=== PATIENT | female | born 1945 | race Caucasian/White ===

== ENCOUNTER → 2016-12-02 | Outpatient (CLI) | payer OTHER ==
[~2016-12-02] MED LIST: ADVIN50/60 INH; ALBINS/ INH; AMLO-114 PO; APR/25 PO; ASPI81TA28 PO; FRS/40 PO; GLC500 PO; HYDR-5688 PO; INSDGI INJ; LEVO88TA3 PO; METO-596 PO; METO100T14 PO; NRV5 PO; PRVHFAIN INH; SPIR25TA PO; SPR25 PO; SPRIN/30 INH; SYN88 PO; TIOTCAP INH; ZOLP5TAB6 PO
[2016-12-02 12:32] LABS: HEMATOCRIT 33.6 % (37-47); MEAN CELL VOLUME 92.6 fL (80-100); MEAN CORPUSCULAR HGB CONC 32.4 g/dl (32-36); PLATELET COUNT 323 K/uL (130-400); RED BLOOD COUNT 3.63 M/uL (4.2-5.4); WHITE BLOOD COUNT 6.75 K/uL (4.8-10.8)
== END | disposition home or self-care (01) ==
LOC: C.LABBFT 08:22
PROVIDERS: ATTEND Internal Medicine
DX: K92.1 Melena (principal)

== ENCOUNTER → 2016-12-03 | Outpatient (CLI) | payer OTHER | END | disposition home or self-care (01) | LOC: C.LABSPEC 14:00 | PROVIDERS: ATTEND Internal Medicine | DX: R19.7 Diarrhea, unspecified (principal) ==

== ENCOUNTER → 2016-12-19 | Day surgery (SDC) | payer OTHER ==
[2016-12-11 13:40] VITALS: Ht 149.9 cm; Wt 90.0 kg
[~2016-12-19] VITALS: Ht 149.9 cm; Wt 90.0 kg
[~2016-12-19] MED LIST changes: +CIPROFLOXACIN / D5W 200 MG in PREMIXED IN D5W 100 ML IV SCH; -GLC500 PO; +LIDOCAINE HCL 2% 2 ML VIAL (20MG/ML) ONE; -METO-596 PO; +MIDAZOLAM HCL 1 MG/ML 2ML VIAL ONE; -NRV5 PO; +ONDANSETRON INJ 2 MG/ML 2 ML VIAL IV PRN; +ONDANSETRON INJ 2 MG/ML 2 ML VIAL ONE; +PROPOFOL IV EMULSION 10 MG/ML 20 ML VIAL IV ONE; -PRVHFAIN INH; -SPR25 PO; -SYN88 PO; -TIOTCAP INH
[2016-12-19 09:27] VITALS: TEMP 36.6
--- NOTE | 2016-12-19 10:12 | Endo History and Physical ---
History & Physical Date of Service: Dec 19, 2016. Chief Complaint: Diarrhea Referring Physician: Dr Frausto History of Present Illness Patient with a history of diarrhea and occasional hematochezia for colonosocpy today Past Medical History Diabetes, Arthritis, High Cholesterol, Sleep Apnea, CHF, Hypertension, COPD, Thyroid Disease Past Surgical History Hx Cardiac Surgery: No Hx Internal Defibrillator: No Hx Pacemaker: No Hx Abdominal Surgery: Yes (CARISA, APPY) Hx of Implantable Prosthesis: No Hx Post-Op Nausea and Vomiting: No Hx Cancer Surgery: No Hx Thoracic Surgery: No Hx Orthopedic: Yes (LEFT RCR) Hx Urinary Tract Surgery: No Family History None Social History Smoking Status: Former Smoker Hx Substance Use: No Hx Alcohol Use: Yes (RARELY) Allergies Coded Allergies: Doxycycline (Verified Allergy, Unknown, UNKN, 12/19/16) LUCIANA Inhibitors (Verified Adverse Reaction, Intermediate, COUGH, 12/19/16) Statins (Verified Adverse Reaction, Intermediate, MYALGIA, 12/19/16) Current Medications Reported Home Medications Medications Dose Route/Sig Max Daily Dose Days Date Category Dose Instructions Proventil 0.083% 2.5MG/3ML (Albuterol Sulf) 2.5 Mg/3 Ml Nebu 2.5 Mg INH QID PRN 12/11/16 Reported Spiriva Handihaler (Tiotropium [place]) 30 Puff/540 Mcg Aerp 1 Cap INH QAM 12/11/16 Reported Advair Diskus 500/50 60 Dose (Fluticasone Prop/Salmeterol) 1 Ea Aerp 1 Puff INH BID 12/11/16 Reported Zolpidem Tartrate 5 Mg Tab 1 Tab PO HS 30 12/11/16 Reported Lopressor (Metoprolol Tartrate) 100 Mg Tab 100 Mg PO BID 12/11/16 Reported Levothyroxine Sodium 88 Mcg Tab 1 Tab PO QAM 90 12/11/16 Reported Aldactone (Spironolactone) 25 Mg Tab 25 Mg PO QAM 12/11/16 Reported Norvasc (Amlodipine Besylate) 10 Mg Tab 10 Mg PO QAM 12/11/16 Reported Lasix (Furosemide) 40 Mg Tab 40 Mg PO QAM 12/11/16 Reported CAN TAKE AN ADDITIONAL DOSE PRN SWELLING Hydralazine HCl 25 Mg Tab 1 Tab PO TID 12/11/16 Reported Aspirin Ec (Aspirin) 81 Mg Tab 81 Mg PO QAM 10/14/15 Reported Vital Signs Weight (Kilograms): 90 Height (Feet): 4 Height (Inches): 11 Date Time Temp Pulse Resp B/P Pulse Ox O2 Delivery O2 Flow Rate FiO2 12/19/16 09:27 36.6 57 16 164/69 92 Room Air Physical Exam General Appearance: no apparent distress Respiratory/Chest: Auscultation: breath sounds normal Cardiovascular: Heart Auscultation: RRR Abdomen: Inspection & Palpation: soft Assessment and Plan Colonoscopy for evaluation of diiarrhea -- risks discussed to include bleeding, infection, perforation, pain, and missed polyps.
[2016-12-19 12:14] VITALS: BP 163/70; PULSE 71; O2SAT 94
--- NOTE | 2016-12-19 12:21 | Discharge Instructions ---
Endoscopy Patient Instructions Date / Procedure(s) Performed Dec 19, 2016. Colonoscopy Allergy Information Coded Allergies: Doxycycline (Verified Allergy, Unknown, UNKN, 12/19/16) LUCIANA Inhibitors (Verified Adverse Reaction, Intermediate, COUGH, 12/19/16) Statins (Verified Adverse Reaction, Intermediate, MYALGIA, 12/19/16) Discharge Date / Findings Dec 19, 2016. Internal hemorrhoids Multiple colon polyps, 1 large polyp in the rectum Medication Instructions Reported Home Medications Medications Dose Route/Sig Max Daily Dose Days Date Category Dose Instructions Proventil 0.083% 2.5MG/3ML (Albuterol Sulf) 2.5 Mg/3 Ml Nebu 2.5 Mg INH QID PRN 12/11/16 Reported Spiriva Handihaler (Tiotropium [place]) 30 Puff/540 Mcg Aerp 1 Cap INH QAM 12/11/16 Reported Advair Diskus 500/50 60 Dose (Fluticasone Prop/Salmeterol) 1 Ea Aerp 1 Puff INH BID 12/11/16 Reported Zolpidem Tartrate 5 Mg Tab 1 Tab PO HS 30 12/11/16 Reported Lopressor (Metoprolol Tartrate) 100 Mg Tab 100 Mg PO BID 12/11/16 Reported Levothyroxine Sodium 88 Mcg Tab 1 Tab PO QAM 90 12/11/16 Reported Aldactone (Spironolactone) 25 Mg Tab 25 Mg PO QAM 12/11/16 Reported Norvasc (Amlodipine Besylate) 10 Mg Tab 10 Mg PO QAM 12/11/16 Reported Lasix (Furosemide) 40 Mg Tab 40 Mg PO QAM 12/11/16 Reported CAN TAKE AN ADDITIONAL DOSE PRN SWELLING Hydralazine HCl 25 Mg Tab 1 Tab PO TID 12/11/16 Reported Aspirin Ec (Aspirin) 81 Mg Tab 81 Mg PO QAM 10/14/15 Reported Provider Instructions Activity Restrictions - No exercising or heavy lifting for 24 hours. - Do not drink alcohol the day of the procedure. - Do not drive a car or operate machinery until the day after the procedure. - Do not make any important decisions or sign important papers in 24 hours after the procedure. Following Day: - Return to full activity which may include returning to work/school. Diet Start your diet with liquids and light foods (jello, soup, juice, toast). Then eat your usual diet if not nauseated. Treatment For Common After Affects For mild abdominal pain, bloating, or excessive gas: - Rest - Eat lightly - Lie on right side Follow-Up Information No aspirin, motrin, Ibuprofen for 1 week Await pathology results Ciprofloxacin 500 mg twice daily for 5 days Anesthesia Information What You Should Know You have had a procedure that required some medicine to reduce anxiety and discomfort. This treatment is called moderate sedation. After receiving the treatment, you may be sleepy, but you will be able to breathe on your own. The effects of the treatment may last for several hours. Follow these instructions along with Activity/Diet recommendations noted above: * Do NOT do anything where dizziness or clumsiness would be dangerous. * Rest quietly at home today, then you can be up and about tomorrow. * Have a responsible person stay with you the rest of today. * You may have had an I.V. today. If so, you may take the dressing off later today. Recommendations Call your doctor if: * Trouble breathing * Continuous vomiting for more than 24 hours * Temperature above 101 degrees * Severe abdominal pain or bloating * Pain not relieved by pain medicine ordered * There is increased drainage or redness from any incision * A large amount of rectal bleeding greater than 2-3 tablespoons. (If you had a polyp/s removed or have hemorrhoids, a small amount of blood - from the rectum is to be expected.) * You have any unanswered questions or concerns. IN THE EVENT OF A SERIOUS EMERGENCY, GO TO THE NEAREST EMERGENCY ROOM Your discharge instructions were prepared by provider Taylor Huff. Patient Instructions Signature Page Miya Mcgarry Patient (or Guardian) Signature/Date: I have read and understand the instructions given to me by my caregivers. Caregiver/RN/Doctor Signature/Date: The above-named patient and/or guardian has received patient instructions on this date. + Original Patient Signature Page (only) stays with chart. Please make copy for patient.
--- NOTE | 2016-12-19 12:23 | Anesthesiology Progress Note ---
Anesthesia Post Op Note Date & Time Dec 19, 2016 at 12:22 Vital Signs Pain Intensity: 0 Vital Signs Past 12 Hours Date Time Temp Pulse Resp B/P Pulse Ox O2 Delivery O2 Flow Rate FiO2 12/19/16 12:14 71 18 163/70 94 Room Air 12/19/16 12:05 67 18 176/77 93 Room Air 12/19/16 11:35 71 18 173/73 94 Room Air 12/19/16 11:25 68 18 175/73 100 Mask 5 12/19/16 11:15 67 20 175/95 99 Mask 5 12/19/16 09:27 36.6 57 16 164/69 92 Room Air Notes Mental Status: alert / awake / arousable Nausea / Vomiting: adequately controlled Pain: adequately controlled Airway Patency, RR, SpO2: stable & adequate BP & HR: stable & adequate Hydration State: stable & adequate Anesthetic Complications: no major complications apparent
--- NOTE | 2016-12-20 00:45 | GI REPORT ---
Procedure Date: 12/19/2016 9:53 AM Procedure: Colonoscopy Indications: Chronic diarrhea Medicines: Monitored Anesthesia Care Complications: No immediate complications. Estimated blood loss: Minimal. Estimated Blood Loss: Estimated blood loss was minimal. Procedure: Pre-Anesthesia Assessment: - Prior to the procedure, a History and Physical was performed, and patient medications, allergies and sensitivities were reviewed. The patient's tolerance of previous anesthesia was reviewed. - The risks and benefits of the procedure and the sedation options and risks were discussed with the patient. All questions were answered and informed consent was obtained. - Patient identification and proposed procedure were verified prior to the procedure by the physician, the nurse and the physician industrial. The procedure was verified in the procedure room. - Pre-procedure physical examination revealed no contraindications to sedation. - ASA Grade Assessment: IV - A patient with severe systemic disease that is a constant threat to life. - After reviewing the risks and benefits, the patient was deemed in satisfactory condition to undergo the procedure. - The anesthesia plan was to use monitored anesthesia care (MAC). - Immediately prior to administration of medications, the patient was re-assessed for adequacy to receive sedatives. - The heart rate, respiratory rate, oxygen saturations, blood pressure, adequacy of pulmonary ventilation, and response to care were monitored throughout the procedure. - The physical status of the patient was re-assessed after the procedure. After I obtained informed consent, the scope was passed under direct vision. Throughout the procedure, the patient's blood pressure, pulse, and oxygen saturations were monitored continuously. The Scope was introduced through the anus and advanced to the cecum, identified by appendiceal orifice and ileocecal valve. The colonoscopy was performed with moderate difficulty. The patient tolerated the procedure well. The quality of the bowel preparation was good. Findings: The perianal and digital rectal examinations were normal. Pertinent negatives include normal sphincter tone. The terminal ileum appeared normal. A 6 mm polyp was found in the cecum. The polyp was semi-sessile. The polyp was removed with a hot snare. Resection and retrieval were complete. Estimated blood loss was minimal. Three sessile polyps were found in the ascending colon. The polyps were 4 to 6 mm in size. These polyps were removed with a hot snare. Resection and retrieval were complete. Estimated blood loss was minimal. A 10 mm polyp was found in the descending colon. The polyp was sessile. The polyp was removed with a hot snare. Resection and retrieval were complete. To prevent bleeding after the polypectomy, one hemostatic clip was successful and one hemostatic clip was unsuccessfully placed (MR conditional). There was no bleeding at the end of the procedure. Two sessile polyps were found in the descending colon. The polyps were 6 to 7 mm in size. These polyps were removed with a cold snare. Resection and retrieval were complete. Estimated blood loss was minimal. A 5 mm polyp was found in the sigmoid colon. The polyp was sessile. The polyp was removed with a cold snare. Resection and retrieval were complete. Estimated blood loss was minimal. A 40 mm polyp was found in the rectum. The polyp was semi-pedunculated. The polyp was removed with a hot snare. Resection and retrieval were complete using a Gao net. Five hemostatic clips were successfully placed (MR conditional). Estimated blood loss was minimal. Area was successfully injected with 4 mL of a 1:10,000 solution of epinephrine for hemostasis. Estimated blood loss was minimal. Internal hemorrhoids were found during retroflexion. The hemorrhoids were mild. The exam was otherwise without abnormality. Impression: - The examined portion of the ileum was normal. - One 6 mm polyp in the cecum, removed with a hot snare. Resected and retrieved. - Three 4 to 6 mm polyps in the ascending colon, removed with a hot snare. Resected and retrieved. - One 10 mm polyp in the descending colon, removed with a hot snare. Resected and retrieved. Clip (MR conditional) was placed. - Two 6 to 7 mm polyps in the descending colon, removed with a cold snare. Resected and retrieved. - One 5 mm polyp in the sigmoid colon, removed with a cold snare. Resected and retrieved. - One 40 mm polyp in the rectum, removed with a hot snare. Resected and retrieved. Clips (MR conditional) were placed. Injected. - Internal hemorrhoids. - The examination was otherwise normal. Recommendation: - Discharge patient to home (ambulatory). - Advance diet as tolerated today. - Cipro (ciprofloxacin) 500 mg PO BID for 5 days. - Await pathology results. - No ibuprofen, naproxen, or other non-steroidal anti-inflammatory drugs for 1 week after polyp removal. Taylor Huff D.O. Taylor Huff, 12/19/2016 12:16:57 PM This report has been signed electronically. Note Initiated On: 12/19/2016 9:53 AM I attest to the content of the Intraoperative Record and orders documented therein, exceptions below
== END | disposition home or self-care (01) ==
LOC: C.GI 09:00
PROVIDERS: ATTEND Internal Medicine Gastroenterology
DX: R19.7 Diarrhea, unspecified (principal); D12.2 Benign neoplasm of ascending colon; D12.4 Benign neoplasm of descending colon; D12.5 Benign neoplasm of sigmoid colon; K64.8 Other hemorrhoids

== ENCOUNTER → 2017-01-27 | Outpatient (CLI) | payer OTHER ==
[~2017-01-27] MED LIST changes: -APR/25 PO; -CIPROFLOXACIN / D5W 200 MG in PREMIXED IN D5W 100 ML IV SCH; +HYDR-4716 PO; -LIDOCAINE HCL 2% 2 ML VIAL (20MG/ML) ONE; -MIDAZOLAM HCL 1 MG/ML 2ML VIAL ONE; -ONDANSETRON INJ 2 MG/ML 2 ML VIAL IV PRN; -ONDANSETRON INJ 2 MG/ML 2 ML VIAL ONE; +PRED1SUS3 OPL; -PROPOFOL IV EMULSION 10 MG/ML 20 ML VIAL IV ONE
[2017-01-27 17:32] LABS: BASO % 0.5 %; BASO ABS # 0.04 K/uL (0-0.2); COMPLETE YES; EOS % 4.9 %; IG% 0.4 %; LYMPH % 17.5 %; LYMPH ABS # 1.43 K/uL (1.2-3.4); MEAN CELL VOLUME 91.6 fL (80-100); MEAN CORPUSCULAR HEMOGLOBIN 29.6 pg (25-34); MEAN CORPUSCULAR HGB CONC 32.4 g/dl (32-36); MEAN PLATELET VOLUME 10.1 fL (7.4-10.4); MONO % 10.1 %; NEUT % 66.6 %; PLATELET COUNT 346 K/uL (130-400); RED BLOOD COUNT 4.15 M/uL (4.2-5.4); WHITE BLOOD COUNT 8.18 K/uL (4.8-10.8)
[2017-01-27 18:15] LABS: ALT/SGPT 15 U/L (12-78); AST/SGOT 11 U/L (15-37); BLOOD UREA NITROGEN 25 mg/dl (7-18); BUN/CREATININE RATIO 19.5 (10-20); CARBON DIOXIDE 29 mmol/L (21-32); CHLORIDE 109 mmol/L (98-107); GLUCOSE 125 mg/dl (70-99); POTASSIUM 5.4 mmol/L (3.5-5.1); SODIUM 143 mmol/L (136-145)
[2017-01-27 18:24] LABS: RATIO 602.5 mcg/mg (0-30.0)
[2017-01-27 18:25] LABS: ALKALINE PHOSPHATASE 84 U/L (45-117); CHOLESTEROL 281 mg/dl (0-200); CHOLESTEROL/HDL RATIO 6.1; HDL CHOLESTEROL 46 mg/dl; LDL CHOLESTEROL CALCULATED 188 mg/dl; TRIGLYCERIDES 234 mg/dl (0-150); VERY LOW DENSITY LIPOPROT CALC 47 mg/dl
[2017-01-28 06:36] LABS: ESTIMATED AVERAGE GLUCOSE 146 mg/dl; HA1C FLAG Normal (Normal)
== END | disposition home or self-care (01) ==
LOC: C.LABBFT 13:54
PROVIDERS: ATTEND Internal Medicine
DX: E11.21 Type 2 diabetes mellitus with diabetic nephropathy (principal)

== ENCOUNTER → 2017-04-08 | Day surgery (SDC) | payer OTHER ==
[2017-04-01 15:15] VITALS: Ht 162.6 cm; Wt 90.5 kg
[~2017-04-08] VITALS: Ht 162.6 cm; Wt 90.5 kg
[~2017-04-08] MED LIST changes: +ATROPINE SULFATE 0.1 MG/ML 5ML SYR IV PRN; +EpHEDrine SULFATE INJ 50 MG/ML AMP IV PRN; +HydrALAZINE HCL 20 MG/ML VIAL IV. STA; +HydrALAZINE HCL 20 MG/ML VIAL ONE; +LEVO-366 PO; +ONDANSETRON INJ 2 MG/ML 2 ML VIAL IV PRN; +PROPOFOL IV EMULSION 10 MG/ML 20 ML VIAL IV ONE
--- NOTE | 2017-04-08 09:51 | Endo History and Physical ---
History & Physical Date of Service: Apr 08, 2017. Chief Complaint: Hx polyps, 3 mos follow up Referring Physician: Shubham Frausto History of Present Illness Patient with a history of numerous colon polyps, one 40 mm polyp near the rectum removed with endoscopic therapy. For a surveillance examination today. Past Medical History Diabetes, Arthritis, High Cholesterol, Sleep Apnea, CHF, Hypertension, COPD, Thyroid Disease Past Surgical History Hx Cardiac Surgery: No Hx Internal Defibrillator: No Hx Pacemaker: No Hx Abdominal Surgery: Yes (CARISA, APPENDECTOMY) Hx of Implantable Prosthesis: No Hx Post-Op Nausea and Vomiting: No Hx Cancer Surgery: No Hx Thoracic Surgery: No Hx Orthopedic: Yes (LEFT RCR) Hx Urinary Tract Surgery: Yes (COLONSCOPY) Family History None Social History Smoking Status: Former Smoker Hx Substance Use: No Hx Alcohol Use: Yes (RARELY) Allergies Coded Allergies: Doxycycline (Verified Allergy, Unknown, UNKN, 04/01/17) LUCIANA Inhibitors (Verified Adverse Reaction, Intermediate, COUGH, 04/01/17) Statins (Verified Adverse Reaction, Intermediate, MYALGIA, 04/01/17) Current Medications Reported Home Medications Medications Dose Route/Sig Max Daily Dose Days Date Category Dose Instructions [place] 5MG/325MG (Acetaminophen/Hydrocodone Bitart) Tab 1 Tablet PO Q8H PRN 04/01/17 Reported PRN PAIN Lantus (Insulin Glargine) 100 Unit/Ml Inj 20 Units INJ QAM 04/01/17 Reported Proventil 0.083% 2.5MG/3ML (Albuterol Sulf) 2.5 Mg/3 Ml Nebu 2.5 Mg INH QID PRN 12/11/16 Reported Spiriva Handihaler (Tiotropium [place]) 30 Puff/540 Mcg Aerp 1 Cap INH QAM 12/11/16 Reported Advair Diskus 500/50 60 Dose (Fluticasone Prop/Salmeterol) 1 Ea Aerp 1 Puff INH BID 12/11/16 Reported Zolpidem Tartrate 5 Mg Tab 1 Tab PO HS 30 12/11/16 Reported Lopressor (Metoprolol Tartrate) 100 Mg Tab 100 Mg PO BID 12/11/16 Reported Levothyroxine Sodium 88 Mcg Tab 1 Tab PO QAM 90 12/11/16 Reported Aldactone (Spironolactone) 25 Mg Tab 25 Mg PO QAM 12/11/16 Reported Norvasc (Amlodipine Besylate) 10 Mg Tab 10 Mg PO QAM 12/11/16 Reported Lasix (Furosemide) 40 Mg Tab 40 Mg PO QAM 12/11/16 Reported CAN TAKE AN ADDITIONAL DOSE PRN SWELLING Hydralazine HCl 25 Mg Tab 1 Tab PO TID 12/11/16 Reported Aspirin Ec (Aspirin) 81 Mg Tab 81 Mg PO QAM 10/14/15 Reported Vital Signs Weight (Kilograms): 90.45 Height (Feet): 5 Height (Inches): 4 Date Time Temp Pulse Resp B/P (MAP) Pulse Ox O2 Delivery O2 Flow Rate FiO2 04/08/17 09:35 36.6 74 24 231/88 (135) 95 Room Air Physical Exam General Appearance: no apparent distress Respiratory/Chest: Auscultation: breath sounds normal Cardiovascular: Heart Auscultation: RRR Abdomen: Inspection & Palpation: soft Assessment and Plan Evaluation for colon polyp resection, risks discussed to include bleeding, infection, perforation, pain, and bleeding.
--- NOTE | 2017-04-08 10:18 | GI REPORT ---
Procedure Date: 04/08/2017 9:25 AM Procedure: Colonoscopy Indications: Surveillance: Piecemeal removal of large sessile adenoma last colonoscopy (< 3 yrs) Medicines: Monitored Anesthesia Care Complications: No immediate complications. Estimated blood loss: Minimal. Estimated Blood Loss: Estimated blood loss was minimal. Procedure: Pre-Anesthesia Assessment: - Prior to the procedure, a History and Physical was performed, and patient medications, allergies and sensitivities were reviewed. The patient's tolerance of previous anesthesia was reviewed. - The risks and benefits of the procedure and the sedation options and risks were discussed with the patient. All questions were answered and informed consent was obtained. - Patient identification and proposed procedure were verified prior to the procedure by the physician, the nurse and the thermit welding machine operator. The procedure was verified in the procedure room. - Pre-procedure physical examination revealed no contraindications to sedation. - ASA Grade Assessment: IV - A patient with severe systemic disease that is a constant threat to life. - After reviewing the risks and benefits, the patient was deemed in satisfactory condition to undergo the procedure. - The anesthesia plan was to use monitored anesthesia care (MAC). - Immediately prior to administration of medications, the patient was re-assessed for adequacy to receive sedatives. - The heart rate, respiratory rate, oxygen saturations, blood pressure, adequacy of pulmonary ventilation, and response to care were monitored throughout the procedure. - The physical status of the patient was re-assessed after the procedure. After I obtained informed consent, the scope was passed under direct vision. Throughout the procedure, the patient's blood pressure, pulse, and oxygen saturations were monitored continuously. The scope was introduced through the anus and advanced to the cecum, identified by appendiceal orifice and ileocecal valve. The colonoscopy was performed without difficulty. The patient tolerated the procedure well. The quality of the bowel preparation was good. Findings: The perianal and digital rectal examinations were normal. Pertinent negatives include normal sphincter tone. A 6 mm polyp was found at the hepatic flexure. The polyp was sessile. The polyp was removed with a cold snare. Resection was complete, but the polyp tissue was not retrieved. Estimated blood loss was minimal. A 4 mm polyp was found in the transverse colon. The polyp was sessile. The polyp was removed with a cold biopsy forceps. Resection and retrieval were complete. Estimated blood loss was minimal. A 10 mm post polypectomy scar was found in the rectum. There was residual polyp tissue (several small nodules). One nodule was removed with a cold snare. Polyp resection was incomplete, and the resected tissue was not retrieved. Coagulation for destruction of remaining portion of lesion using argon plasma at 1 liter/minute and 30 andrews was successful. Estimated blood loss was minimal. Multiple small and large-mouthed diverticula were found in the sigmoid colon and in the descending colon. Internal hemorrhoids were found during retroflexion. The hemorrhoids were mild. The exam was otherwise without abnormality. Impression: - One 6 mm polyp at the hepatic flexure, removed with a cold snare. Complete resection. Polyp tissue not retrieved. - One 4 mm polyp in the transverse colon, removed with a cold biopsy forceps. Resected and retrieved. - Post-polypectomy scar in the rectum. Treated with argon plasma coagulation (APC). - Moderate diverticulosis in the sigmoid colon and in the descending colon. - Internal hemorrhoids. - The examination was otherwise normal. Recommendation: - Discharge patient to home (ambulatory). - Advance diet as tolerated today. - Repeat colonoscopy in 1 year for surveillance. Taylor Huff D.O. Taylor Huff, 04/08/2017 10:17:12 AM This report has been signed electronically. Note Initiated On: 04/08/2017 9:25 AM I attest to the content of the Intraoperative Record and orders documented therein, exceptions below
--- NOTE | 2017-04-08 10:19 | Discharge Instructions ---
Endoscopy Patient Instructions Date / Procedure(s) Performed Apr 08, 2017. Colonoscopy Allergy Information Coded Allergies: Doxycycline (Verified Allergy, Unknown, UNKN, 04/01/17) LUCIANA Inhibitors (Verified Adverse Reaction, Intermediate, COUGH, 04/01/17) Statins (Verified Adverse Reaction, Intermediate, MYALGIA, 04/01/17) Discharge Date / Findings Apr 08, 2017. Diverticulosis 2 small colon polyps Scar in rectum consistent with prior polypectomy Medication Instructions Reported Home Medications Medications Dose Route/Sig Max Daily Dose Days Date Category Dose Instructions [place] 5MG/325MG (Acetaminophen/Hydrocodone Bitart) Tab 1 Tablet PO Q8H PRN 04/01/17 Reported PRN PAIN Lantus (Insulin Glargine) 100 Unit/Ml Inj 20 Units INJ QAM 04/01/17 Reported Proventil 0.083% 2.5MG/3ML (Albuterol Sulf) 2.5 Mg/3 Ml Nebu 2.5 Mg INH QID PRN 12/11/16 Reported Spiriva Handihaler (Tiotropium [place]) 30 Puff/540 Mcg Aerp 1 Cap INH QAM 12/11/16 Reported Advair Diskus 500/50 60 Dose (Fluticasone Prop/Salmeterol) 1 Ea Aerp 1 Puff INH BID 12/11/16 Reported Zolpidem Tartrate 5 Mg Tab 1 Tab PO HS 30 12/11/16 Reported Lopressor (Metoprolol Tartrate) 100 Mg Tab 100 Mg PO BID 12/11/16 Reported Levothyroxine Sodium 88 Mcg Tab 1 Tab PO QAM 90 12/11/16 Reported Aldactone (Spironolactone) 25 Mg Tab 25 Mg PO QAM 12/11/16 Reported Norvasc (Amlodipine Besylate) 10 Mg Tab 10 Mg PO QAM 12/11/16 Reported Lasix (Furosemide) 40 Mg Tab 40 Mg PO QAM 12/11/16 Reported CAN TAKE AN ADDITIONAL DOSE PRN SWELLING Hydralazine HCl 25 Mg Tab 1 Tab PO TID 12/11/16 Reported Aspirin Ec (Aspirin) 81 Mg Tab 81 Mg PO QAM 10/14/15 Reported Provider Instructions Activity Restrictions - No exercising or heavy lifting for 24 hours. - Do not drink alcohol the day of the procedure. - Do not drive a car or operate machinery until the day after the procedure. - Do not make any important decisions or sign important papers in 24 hours after the procedure. Following Day: - Return to full activity which may include returning to work/school. Diet Start your diet with liquids and light foods (jello, soup, juice, toast). Then eat your usual diet if not nauseated. Treatment For Common After Affects For mild abdominal pain, bloating, or excessive gas: - Rest - Eat lightly - Lie on right side Follow-Up Information Follow-up with Dr. Shubham Frausto as scheduled Repeat colonoscopy in 1 year Anesthesia Information What You Should Know You have had a procedure that required some medicine to reduce anxiety and discomfort. This treatment is called moderate sedation. After receiving the treatment, you may be sleepy, but you will be able to breathe on your own. The effects of the treatment may last for several hours. Follow these instructions along with Activity/Diet recommendations noted above: * Do NOT do anything where dizziness or clumsiness would be dangerous. * Rest quietly at home today, then you can be up and about tomorrow. * Have a responsible person stay with you the rest of today. * You may have had an I.V. today. If so, you may take the dressing off later today. Recommendations Call your doctor if: * Trouble breathing * Continuous vomiting for more than 24 hours * Temperature above 101 degrees * Severe abdominal pain or bloating * Pain not relieved by pain medicine ordered * There is increased drainage or redness from any incision * A large amount of rectal bleeding greater than 2-3 tablespoons. (If you had a polyp/s removed or have hemorrhoids, a small amount of blood - from the rectum is to be expected.) * You have any unanswered questions or concerns. IN THE EVENT OF A SERIOUS EMERGENCY, GO TO THE NEAREST EMERGENCY ROOM Your discharge instructions were prepared by provider Taylor Huff. Patient Instructions Signature Page Miya Mcgarry Patient (or Guardian) Signature/Date: I have read and understand the instructions given to me by my caregivers. Caregiver/RN/Doctor Signature/Date: The above-named patient and/or guardian has received patient instructions on this date. + Original Patient Signature Page (only) stays with chart. Please make copy for patient.
--- NOTE | 2017-04-08 10:55 | Anesthesiology Progress Note ---
Anesthesia Post Op Note Date & Time Apr 08, 2017 at 10:54 Vital Signs Vital Signs Past 12 Hours Date Time Temp Pulse Resp B/P (MAP) Pulse Ox O2 Delivery O2 Flow Rate FiO2 04/08/17 10:52 72 22 198/74 (115) 97 Room Air 04/08/17 10:47 71 22 200/68 (112) 97 Room Air 04/08/17 10:31 71 22 199/70 (113) 97 Room Air 04/08/17 10:16 76 22 162/52 (88) 95 Room Air 04/08/17 09:35 36.6 74 24 231/88 (135) 95 Room Air Notes Mental Status: alert / awake / arousable, participated in evaluation Pt Amnestic to Procedure: Yes Nausea / Vomiting: adequately controlled Pain: adequately controlled Airway Patency, RR, SpO2: stable & adequate BP & HR: stable & adequate Hydration State: stable & adequate Anesthetic Complications: no major complications apparent
[2017-04-08 11:35] VITALS: BP 168/72; PULSE 72; O2SAT 97
== END | disposition home or self-care (01) ==
LOC: C.GI 09:07
PROVIDERS: ATTEND Internal Medicine Gastroenterology
DX: D12.2 Benign neoplasm of ascending colon (principal); D12.3 Benign neoplasm of transverse colon; K62.1 Rectal polyp; K57.30 Diverticulosis of large intestine without perforation or abscess without bleeding; K64.8 Other hemorrhoids; Z86.010 Personal history of colon polyps; I10 Essential (primary) hypertension; I50.9 Heart failure, unspecified; E78.00 Pure hypercholesterolemia, unspecified; E11.9 Type 2 diabetes mellitus without complications; J44.9 Chronic obstructive pulmonary disease, unspecified; E07.9 Disorder of thyroid, unspecified; G47.30 Sleep apnea, unspecified; Z87.891 Personal history of nicotine dependence; Z79.4 Long term (current) use of insulin; Z79.82 Long term (current) use of aspirin; Z79.899 Other long term (current) drug therapy

== ENCOUNTER → 2017-05-28 | Outpatient (CLI) | payer OTHER ==
[~2017-05-28] MED LIST changes: +APR/25 PO; -ATROPINE SULFATE 0.1 MG/ML 5ML SYR IV PRN; -EpHEDrine SULFATE INJ 50 MG/ML AMP IV PRN; -HYDR-4716 PO; -HydrALAZINE HCL 20 MG/ML VIAL IV. STA; -HydrALAZINE HCL 20 MG/ML VIAL ONE; -LEVO-366 PO; -ONDANSETRON INJ 2 MG/ML 2 ML VIAL IV PRN; -PRED1SUS3 OPL; -PROPOFOL IV EMULSION 10 MG/ML 20 ML VIAL IV ONE
--- NOTE | 2017-05-28 11:25 | DIAGNOSTIC IMAGING REPORT ---
SOFT TIS HEAD/NECK-THYROID HISTORY: Pain M54.2 Neck [id number] COMPARISON: None. FINDINGS: Right lobe: Maximum dimension 3.1 cm. 3 mm hypoechoic nodule mid pole Left lobe: Maximum dimension 3.2 cm. Mid and lower pole nodules measuring 2 and 3 mm. Isthmus: No nodules. IMPRESSION: 1. Findings consistent with a minimal multinodular thyroid. No evidence for a dominant nodule The above report was generated using voice recognition software. It may contain grammatical, syntax or spelling errors. Electronically signed by: Filemon Solorio M.D. 05/28/2017 11:24 AM Dictated Date/Time: 05/28/2017 11:22 AM
== END | disposition home or self-care (01) ==
LOC: C.ULTR 10:50
PROVIDERS: ATTEND Internal Medicine
DX: M54.2 Cervicalgia (principal)

== ENCOUNTER → 2017-08-04 | Outpatient (CLI) | payer OTHER ==
[2017-08-04 17:46] LABS: BASO % 0.6 %; BASO ABS # 0.07 K/uL (0-0.2); COMPLETE YES; EOS % 6.5 %; HEMATOCRIT 42.7 % (37-47); IG% 0.3 %; LYMPH ABS # 1.56 K/uL (1.2-3.4); MEAN CORPUSCULAR HEMOGLOBIN 29.5 pg (25-34); MEAN CORPUSCULAR HGB CONC 32.1 g/dl (32-36); MEAN PLATELET VOLUME 10.1 fL (7.4-10.4); MONO % 7.7 %; NEUT % 70.9 %; PLATELET COUNT 334 K/uL (130-400); RED BLOOD COUNT 4.64 M/uL (4.2-5.4); WHITE BLOOD COUNT 11.15 K/uL (4.8-10.8)
[2017-08-04 18:02] LABS: ALT/SGPT 16 U/L (12-78); BLOOD UREA NITROGEN 24 mg/dl (7-18); BUN/CREATININE RATIO 17.3 (10-20); CALCIUM 10.4 mg/dl (8.5-10.1); CARBON DIOXIDE 29 mmol/L (21-32); CHLORIDE 108 mmol/L (98-107); CHOLESTEROL 250 mg/dl (0-200); CREATININE 1.39 mg/dl (0.60-1.20); GLUCOSE 133 mg/dl (70-99); MAGNESIUM 2.1 mg/dl (1.8-2.4); SODIUM 140 mmol/L (136-145); TRIGLYCERIDES 267 mg/dl (0-150); VERY LOW DENSITY LIPOPROT CALC 53 mg/dl
[2017-08-04 18:11] LABS: ALB/GLOB RATIO 1.1 (0.9-2); ALKALINE PHOSPHATASE 108 U/L (45-117); AST/SGOT 13 U/L (15-37); CHOLESTEROL/HDL RATIO 6.9; HDL CHOLESTEROL 36 mg/dl; LDL CHOLESTEROL CALCULATED 161 mg/dl
[2017-08-04 18:45] LABS: RATIO 557.8 mcg/mg (0-30.0)
[2017-08-05 07:30] LABS: ESTIMATED AVERAGE GLUCOSE 143 mg/dl; HA1C FLAG Normal (Normal)
== END | disposition home or self-care (01) ==
LOC: C.LABBFT 14:50
PROVIDERS: ATTEND Internal Medicine
DX: E11.29 Type 2 diabetes mellitus with other diabetic kidney complication (principal); R42 Dizziness and giddiness

== ENCOUNTER → 2017-08-18 | Day surgery (SDC) | payer OTHER ==
[2017-07-11 08:53] VITALS: Ht 157.5 cm; Wt 95.0 kg
[~2017-08-18] VITALS: Ht 157.5 cm; Wt 95.0 kg
[~2017-08-18] MED LIST changes: +500ML BSS 0.3ML EPI 1:1000PF IRRIG ONE; +ACETAMINOPHEN 325 MG TAB PO PRN; +AMVISC PLUS 0.8ML SYRINGE INT OCU ONE; -APR/25 PO; +ATROPINE SULFATE 0.1 MG/ML 5ML SYR IV PRN; +BRIMONIDINE TART 0.2% OP SOLN PER DROP CHARGE ONE; +BSS FLUSH ONE; +ENDOCOAT 0.85ML SYRINGE INT OCU ONE; +EpHEDrine SULFATE INJ 50 MG/ML AMP IV PRN; +EpINEphrine INJ 1MG/ML AMP 1 MG/ML AMP ONE; +HYDR-4716 PO; +LACTATED RINGER'S 1000ML 500 ML IV SCH; +LIDOCAINE 4% OP SOLN DROP CHARGE ONE; +LIDOCAINE 4% OP SOLN DROP CHARGE OPR SCH; +LIDOCAINE HCL 1% MPF 2 ML VIAL ONE; +MIDAZOLAM HCL 1 MG/ML 2ML VIAL ONE; +MOXIFLOXACIN OPH SOLN PER DROP CHARGE ONE; +ONDANSETRON INJ 2 MG/ML 2 ML VIAL IV PRN; +POVIDONE-IODINE OP SOLN 30 ML BTL ONE; +PROPARACAINE 0.5% OP SOLN PER DROP CHARGE OPR SCH; +TOBRAMYCIN/DEXAMETHASONE OPH OINT PER APPLN CHARGE ONE
--- NOTE | 2017-08-18 07:45 | History & Physical Bridge - SC ---
H&P Re-Evaluation Bridge Note: I have examined the patient, reviewed the History & Physical and in the interval since the performance of the History & Physical I have noted the following changes of clinical significance: No changes noted
[2017-08-18] MEDS: PHENYLEPHRINE HCL 2.5% OP SOLN PER DROP CHARGE OPR SCH ×2 (07:47→07:52)
[2017-08-18] MEDS: TROPICAMIDE 1% OP SOLN PER DROP CHARGE OPR SCH ×2 (07:48→07:53)
[2017-08-18] MEDS: CYCLOPENTOLATE HCL 1% OP SOLN PER DROP CHARGE OPR SCH ×2 (07:49→07:54)
[2017-08-18] MEDS: KETOROLAC 0.5% OP SOLN PER DROP CHARGE OPR SCH ×2 (07:50→07:55)
[2017-08-18] MEDS: MOXIFLOXACIN OPH SOLN PER DROP CHARGE OPR SCH ×2 (07:51→08:02)
--- NOTE | 2017-08-18 09:15 | Discharge Instructions-SurgCtr ---
Discharge Instructions Date of Service Aug 18, 2017. Visit Reason for Visit: Right Cataract Discharge Discharge Diagnosis / Problem: cataract right eye Discharge Goals Goal(s): Improve function Activity Recommendations Activity Limitations: per Instructions/Follow-up section Lifting Limitations: no more than 5 pounds Anesthesia . Post Anesthesia Instructions: If you have had General Anesthesia or IV Sedation: * Do not drive today. * Resume driving when surgeon permits. * Do not make important decisions or sign legal documents today. * Call surgeon for: 1. Temperature elevations greater than 101 degrees F. 2. Uncontrollable pain. 3. Excessive bleeding. 4. Persistent nausea and vomiting. 5. Medication intolerance (nausea, vomiting or rash). * For nausea and vomiting use only clear liquids such as: tea, soda, bouillon until nausea subsides, then gradually increase diet as tolerated. * If you have any concerns or questions, call your surgeon's office. If physician is unavailable and it is an emergency, call 911 or go to the nearest emergency room. . Instructions / Follow-Up Instructions / Follow-Up ACTIVITY RECOMMENDATIONS: * Light activities * You may walk outside, read, watch television. * Mild irritation and blurred vision are common for the first few days, redness around the white part of the eye is common. MEDICATIONS: Resume previous medications unless instructed otherwise by your surgeon. Eye drops (today and tomorrow): Vigamox - one drop in operative eye every 2 hours while awake Prednisolone 1% - one drop in operative eye every 2 hours while awake Bromfenac - one drop in operative eye once daily SPECIAL CARE INSTRUCTIONS: * If any problems or concerns, please call Dr. Garcia's office at . * Keep plastic shield taped over eye to sleep at night. * Keep plastic shield taped over eye except to administer eye drops. * Keep plastic shield on until office visit the following day. FOLLOW UP VISIT: Follow-up with Dr. Garcia in the [place] office as scheduled. If not already scheduled, please call the office at . Diet Recommendations Home Diet: resume previous diet Procedures Procedures Performed: Right Cataract Phacoemulsification With Intraocular Lens Implant Pending Studies Studies pending at discharge: no Medical Emergencies . Who to Call and When: Medical Emergencies: If at any time you feel your situation is an emergency, please call 911 immediately. . Non-Emergent Contact Non-Emergency issues call your: Chyron Operator . . "Provider Documentation" section prepared by Roland Garcia. .
--- NOTE | 2017-08-18 09:17 | [facility] Operative Report ---
Operative Report Operative Date Aug 18, 2017. Pre-Operative Diagnosis Right Eye Cataract Post-Operative Diagnosis Same Procedure(s) Performed Right Cataract Phacoemulsification With Intraocular Lens Implant Surgeon Dr Garcia Airline Pilot/First Officer Surgeon(s) None Estimated Blood Loss 0ml Findings cataract right eye Fluids (cc crystalloids) see anesthesia record Specimens None Drains none Anesthesia local with sedation Complication(s) None Disposition Recovery Room / PACU Implants mx60 23.0 Indications decreased vision right eye Description of Procedure After informed consent was obtained in the holding area the patient was wheeled back to the operating room where cardiac monitoring leads and oxygen by nasal cannula was administered by Anesthesia. Gentle IV sedation was given, and the patient's right eye was prepped and draped in usual sterile fashion. A wire lid speculum was placed into the right eye and the operating microscope was swung into position. Using 0.12 forceps and a Supersharp blade a paracentesis port was made 2 o'clock hours away from the 9 o'clock position of the patient's right eye. 1% non-preserved Lidocaine was then injected into the anterior chamber for anesthesia. A 2.0 mm keratotome blade was then used to make a shelved clear corneal incision at the 9 o'clock position of the right eye. Amvisc was injected into the anterior chamber and a cystotome and Utrata forceps were used to perform a curvilinear capsulorrhexis. BSS on a hydrodissection cannula was used to hydrodissect the lens nucleus away from the capsular bag. The phacoemulsification handpiece was then used in a stop and chop fashion to remove the lens nucleus. The irrigation and aspiration handpiece was then used to remove the residual cortical material. Amvisc was injected into the capsular bag and anterior chamber and a Bausch & Lomb MX60 23.0 Diopter intraocular lens was injected into the capsular bag. Irrigation and aspiration handpiece was used to remove the residual viscoelastic material. The wounds were hydrated and noted to be watertight. The wire lid speculum was removed from the eye. Vigamox, Brimonidine, and TobraDex ointment were placed on the eye and it was shielded. It should be noted that EndoCoat was used extensively during the case to protect the cornea endothelium. DISPOSITION: The patient tolerated the procedure well and was wheeled to the post anesthesia care unit in stable condition. I attest to the content of the Intraoperative Record and any orders documented therein. Any exceptions are noted below. I attest to the content of the Intraoperative Record and any orders documented therein. Any exceptions are noted below.
[2017-08-18 09:18] VITALS: TEMP 36.4
--- NOTE | 2017-08-18 09:38 | Anesthesia Progress Nt - [facility] ---
Anesthesia Post Op Note Date & Time Aug 18, 2017 at 09:38 Vital Signs Pain Intensity: 0 Vital Signs Past 12 Hours Date Time Temp Pulse Resp B/P (MAP) Pulse Ox O2 Delivery O2 Flow Rate FiO2 08/18/17 09:18 36.4 70 24 203/65 (111) 95 Room Air 08/18/17 07:41 37.0 62 18 199/77 (117) 92 Room Air Notes Mental Status: alert / awake / arousable, participated in evaluation Pt Amnestic to Procedure: Yes Nausea / Vomiting: adequately controlled Pain: adequately controlled Airway Patency, RR, SpO2: stable & adequate BP & HR: stable & adequate Hydration State: stable & adequate Anesthetic Complications: no major complications apparent Patient able to be easily positioned for procedure after being given light sedation
[2017-08-18 09:47] VITALS: BP 185/73; PULSE 60; O2SAT 97
== END | disposition home or self-care (01) ==
LOC: X.SURG 07:21
PROVIDERS: ATTEND Ophthalmology
DX: H25.11 Age-related nuclear cataract, right eye (principal); I10 Essential (primary) hypertension; E10.9 Type 1 diabetes mellitus without complications; Z87.891 Personal history of nicotine dependence

== ENCOUNTER → 2017-09-01 | Day surgery (SDC) | payer OTHER ==
[2017-08-29 09:20] VITALS: Ht 157.5 cm; Wt 94.1 kg
[~2017-09-01] VITALS: Ht 157.5 cm; Wt 94.1 kg
[~2017-09-01] MED LIST changes: -AMLO-114 PO; +BRIMONIDINE TARTRATE 0.2% 5ML ONE; +LIDOCAINE 4% OP SOLN DROP CHARGE OPL SCH; -LIDOCAINE 4% OP SOLN DROP CHARGE OPR SCH; +PRED1SUS3 OPL; +PROPARACAINE 0.5% OP SOLN PER DROP CHARGE OPL SCH; -PROPARACAINE 0.5% OP SOLN PER DROP CHARGE OPR SCH
[2017-09-01] MEDS: PHENYLEPHRINE HCL 2.5% OP SOLN PER DROP CHARGE OPL SCH ×2 (06:35→06:40)
[2017-09-01] MEDS: TROPICAMIDE 1% OP SOLN PER DROP CHARGE OPL SCH ×2 (06:36→06:41)
[2017-09-01] MEDS: CYCLOPENTOLATE HCL 1% OP SOLN PER DROP CHARGE OPL SCH ×2 (06:37→06:42)
[2017-09-01] MEDS: KETOROLAC 0.5% OP SOLN PER DROP CHARGE OPL SCH ×2 (06:38→06:43)
[2017-09-01] MEDS: MOXIFLOXACIN OPH SOLN PER DROP CHARGE OPL SCH ×2 (06:39→06:50)
--- NOTE | 2017-09-01 07:27 | Discharge Instructions-SurgCtr ---
Discharge Instructions Date of Service Sep 01, 2017. Visit Reason for Visit: Cataract Left Eye Discharge Discharge Diagnosis / Problem: cataract left eye Discharge Goals Goal(s): Improve function Activity Recommendations Activity Limitations: per Instructions/Follow-up section Lifting Limitations: no more than 5 pounds Anesthesia . Post Anesthesia Instructions: If you have had General Anesthesia or IV Sedation: * Do not drive today. * Resume driving when surgeon permits. * Do not make important decisions or sign legal documents today. * Call surgeon for: 1. Temperature elevations greater than 101 degrees F. 2. Uncontrollable pain. 3. Excessive bleeding. 4. Persistent nausea and vomiting. 5. Medication intolerance (nausea, vomiting or rash). * For nausea and vomiting use only clear liquids such as: tea, soda, bouillon until nausea subsides, then gradually increase diet as tolerated. * If you have any concerns or questions, call your surgeon's office. If physician is unavailable and it is an emergency, call 911 or go to the nearest emergency room. . Instructions / Follow-Up Instructions / Follow-Up ACTIVITY RECOMMENDATIONS: * Light activities * You may walk outside, read, watch television. * Mild irritation and blurred vision are common for the first few days, redness around the white part of the eye is common. MEDICATIONS: Resume previous medications unless instructed otherwise by your surgeon. Eye drops (today and tomorrow): Vigamox - one drop in operative eye every 2 hours while awake Prednisolone 1% - one drop in operative eye every 2 hours while awake Bromfenac - one drop in operative eye once daily SPECIAL CARE INSTRUCTIONS: * If any problems or concerns, please call Dr. Garcia's office at . * Keep plastic shield taped over eye to sleep at night. * Keep plastic shield taped over eye except to administer eye drops. * Keep plastic shield on until office visit the following day. FOLLOW UP VISIT: Follow-up with Dr. Garcia in the [place] office as scheduled. If not already scheduled, please call the office at . Diet Recommendations Home Diet: resume previous diet Procedures Procedures Performed: Left Cataract Phacoemulsification With Intraocular Lens Implant Pending Studies Studies pending at discharge: no Medical Emergencies . Who to Call and When: Medical Emergencies: If at any time you feel your situation is an emergency, please call 911 immediately. . Non-Emergent Contact Non-Emergency issues call your: Complaint Inspector . . "Provider Documentation" section prepared by Roland Garcia. .
--- NOTE | 2017-09-01 07:28 | [facility] Operative Report ---
Operative Report Operative Date Sep 01, 2017. Pre-Operative Diagnosis Cataract Left Eye Post-Operative Diagnosis Same Procedure(s) Performed Left Cataract Phacoemulsification With Intraocular Lens Implant Surgeon Dr. Garcia Sculpture Conservator Surgeon(s) None Estimated Blood Loss 0 Findings cataract left eye Fluids (cc crystalloids) see anesthesia record Specimens None Drains none Anesthesia local with sedation Complication(s) None Disposition Recovery Room / PACU Implants mx60 23.5 Indications decreased vision left eye Description of Procedure After informed consent was obtained in the holding area the patient was wheeled back to the operating room where cardiac monitoring leads and oxygen by nasal cannula was administered by Anesthesia. Gentle IV sedation was given, and the patient's left eye was prepped and draped in usual sterile fashion. A wire lid speculum was placed into the left eye and the operating microscope was swung into position. Using 0.12 forceps and a Supersharp blade a paracentesis port was made 2 o'clock hours away from the 3 o'clock position of the patient's left eye. 1% non-preserved Lidocaine was then injected into the anterior chamber for anesthesia. A 2.0 mm keratotome blade was then used to make a shelved clear corneal incision at the 3 o'clock position of the left eye. Amvisc was injected into the anterior chamber and a cystotome and Utrata forceps were used to perform a curvilinear capsulorrhexis. BSS on a hydrodissection cannula was used to hydrodissect the lens nucleus away from the capsular bag. The phacoemulsification handpiece was then used in a stop and chop fashion to remove the lens nucleus. The irrigation and aspiration handpiece was then used to remove the residual cortical material. Amvisc was injected into the capsular bag and anterior chamber and a Bausch & Lomb MX60 23.5 Diopter intraocular lens was injected into the capsular bag. Irrigation and aspiration handpiece was used to remove the residual viscoelastic material. The wounds were hydrated and noted to be watertight. The wire lid speculum was removed from the eye. Vigamox, Brimonidine, and TobraDex ointment were placed on the eye and it was shielded. It should be noted that EndoCoat was used extensively during the case to protect the cornea endothelium. DISPOSITION: The patient tolerated the procedure well and was wheeled to the post anesthesia care unit in stable condition. I attest to the content of the Intraoperative Record and any orders documented therein. Any exceptions are noted below. I attest to the content of the Intraoperative Record and any orders documented therein. Any exceptions are noted below.
[2017-09-01 07:29] VITALS: TEMP 36.4
[2017-09-01 07:55] VITALS: BP 142/73; PULSE 58; O2SAT 98
--- NOTE | 2017-09-01 07:55 | Anesthesia Progress Nt - [facility] ---
Anesthesia Post Op Note Date & Time Sep 01, 2017 at 07:55 Vital Signs Pain Intensity: 0 Vital Signs Past 12 Hours Date Time Temp Pulse Resp B/P (MAP) Pulse Ox O2 Delivery O2 Flow Rate FiO2 09/01/17 07:29 36.4 59 20 174/71 (105) 98 Nasal Cannula 2 09/01/17 06:31 36.2 65 22 144/71 (95) 93 Room Air Notes Mental Status: alert / awake / arousable, participated in evaluation Pt Amnestic to Procedure: Yes Nausea / Vomiting: adequately controlled Pain: adequately controlled Airway Patency, RR, SpO2: stable & adequate BP & HR: stable & adequate Hydration State: stable & adequate Anesthetic Complications: no major complications apparent
== END | disposition home or self-care (01) ==
LOC: X.SURG 06:01
PROVIDERS: ATTEND Ophthalmology
DX: H25.12 Age-related nuclear cataract, left eye (principal); H35.3130 Nonexudative age-related macular degeneration, bilateral, stage unspecified; J44.9 Chronic obstructive pulmonary disease, unspecified; I25.10 Atherosclerotic heart disease of native coronary artery without angina pectoris; I11.0 Hypertensive heart disease with heart failure; I50.9 Heart failure, unspecified; K21.9 Gastro-esophageal reflux disease without esophagitis; M19.90 Unspecified osteoarthritis, unspecified site; E10.9 Type 1 diabetes mellitus without complications; Z79.4 Long term (current) use of insulin; Z87.891 Personal history of nicotine dependence

== ENCOUNTER 2017-09-27 12:37 | Emergency (ER) | payer OTHER ==
[~2017-09-27 12:37] MED LIST changes: -500ML BSS 0.3ML EPI 1:1000PF IRRIG ONE; -ACETAMINOPHEN 325 MG TAB PO PRN; -AMVISC PLUS 0.8ML SYRINGE INT OCU ONE; -ATROPINE SULFATE 0.1 MG/ML 5ML SYR IV PRN; -BRIMONIDINE TART 0.2% OP SOLN PER DROP CHARGE ONE; -BRIMONIDINE TARTRATE 0.2% 5ML ONE; -BSS FLUSH ONE; -ENDOCOAT 0.85ML SYRINGE INT OCU ONE; -EpHEDrine SULFATE INJ 50 MG/ML AMP IV PRN; -EpINEphrine INJ 1MG/ML AMP 1 MG/ML AMP ONE; -LACTATED RINGER'S 1000ML 500 ML IV SCH; -LIDOCAINE 4% OP SOLN DROP CHARGE ONE; -LIDOCAINE 4% OP SOLN DROP CHARGE OPL SCH; -LIDOCAINE HCL 1% MPF 2 ML VIAL ONE; -MIDAZOLAM HCL 1 MG/ML 2ML VIAL ONE; -MOXIFLOXACIN OPH SOLN PER DROP CHARGE ONE; -ONDANSETRON INJ 2 MG/ML 2 ML VIAL IV PRN; -POVIDONE-IODINE OP SOLN 30 ML BTL ONE; -PROPARACAINE 0.5% OP SOLN PER DROP CHARGE OPL SCH; -TOBRAMYCIN/DEXAMETHASONE OPH OINT PER APPLN CHARGE ONE
[2017-09-27 12:45] VITALS: TEMP 36.7; Ht 149.9 cm
[2017-09-27] MEDS ORDERED: ALBUT/IPRATROP 3MG/0.5MG NEB 3 ML VIAL INH STA (14:07)
--- NOTE | 2017-09-27 14:09 | EMERGENCY ROOM VISIT NOTE ---
History Report prepared by Ehsanibe: Betty Hooker Under the Supervision of: Dr. Aide Epperson M.D. First contact with patient: 14:01 Chief Complaint: COUGH Stated Complaint: COUGH, CROWLEY, ACHES ALL OVER/BREATHING Nursing Triage Summary: Cough for 3-4 days. Nonproductive. Aches. History of Present Illness The patient is a 71 year old female who presents to the Emergency Room with complaints of a worsening cough for the past 3 to 4 days. The cough is minimally productive, but she states she cannot "clear it out" of her throat. She admits to a history of COPD and is a former smoker. She quit approximately 16 years ago. Inhalers and nebulizer treatments have provided minimal relief. Walking and exertion worsens her cough. She has not taken any steroids. The patient also complains of rhinorrhea, the chills and generalized body aches. She is unsure if she's had a fever. She denies any vomiting. She does admit to intermittent headaches. The patient is diabetic but states her sugars have been "good" recently. She denies any abdominal pain. She has no history of PE or DVT. 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 A total of 10 systems reviewed and were otherwise negative. Past Medical & Surgical Medical Problems: (1) Acute on chronic diastolic (congestive) heart failure (2) ANEMIA NOS (3) Chronic obstructive lung disease (4) DIAB SOO WO COMPL, TYPE II OR UNSPEC TYPE, UNCONTROLLED (5) EMPHYSEMA NEC (6) FAM HX-DIABETES MELLITUS (7) FAMILY HISTORY OF OTHER CARDIOVASCULAR DISEASES (8) HISTORY OF TOBACCO USE (9) HYPERLIPIDEMIA NEC/NOS (10) HYPERTENSION NOS (11) Hypertensive urgency (12) HYPOTHYROIDISM NOS (13) Hysterectomy (14) LUMBAGO (15) OBESITY, NOS Family History Patient reports no known family medical history. Social History Smoking Status: Former Smoker Alcohol Use: none Drug Use: none Marital Status: Housing Status: lives with family Occupation Status: retired Current/Historical Medications Scheduled Aspirin (Aspirin Ec), 81 MG PO QAM Fluticasone Prop/Salmeterol (Advair Diskus 500/50 60 Dose), 1 PUFF INH BID Furosemide (Lasix), 40 MG PO QAM Hydralazine HCl (Hydralazine HCl), 1 TAB PO TID Insulin Glargine (Lantus), 20 UNITS INJ QAM Levofloxacin (Levaquin), 500 MG PO DAILY Levothyroxine Sodium (Levothyroxine Sodium), 1 TAB PO QAM Metoprolol Tartrate (Lopressor) (Lopressor), 100 MG PO BID Prednisolone Acetate (Ophth) (Pred Forte 1% Oph), 1 DROPS OPL DIRECTED Spironolactone (Aldactone), 25 MG PO QAM Tiotropium [place] (Spiriva Handihaler), 1 CAP INH QAM Zolpidem Tartrate (Zolpidem Tartrate), 1 TAB PO HS Scheduled PRN Albuterol Sulf (Proventil 0.083% 2.5MG/3ML), 2.5 MG INH QID PRN for Shortness of Breath Allergies Coded Allergies: Doxycycline (Verified Allergy, Unknown, UNKN, 09/27/17) LUCIANA Inhibitors (Verified Adverse Reaction, Intermediate, COUGH, 09/27/17) Statins (Verified Adverse Reaction, Intermediate, MYALGIA, 09/27/17) Physical Exam Vital Signs Date Time Temp Pulse Resp B/P (MAP) Pulse Ox O2 Delivery O2 Flow Rate FiO2 09/27/17 15:42 64 18 212/62 93 Room Air 09/27/17 12:49 94 Room Air 09/27/17 12:45 36.7 62 20 183/60 93 Room Air Physical Exam Vital signs reviewed. General: Chronically ill-appearing, obese 71 year old female, in no significant distress. HEENT: No scleral icterus, PERRLA, neck supple. Atraumatic. Cardiovascular: Regular rate and rhythm, no extra sounds. Pulmonary: Dry cough. Faint scattered wheezing. Normal work of breathing. Abdomen: Soft, nontender, nondistended, positive bowel sounds. Musculoskeletal: Atraumatic, no peripheral edema. Neurologic: Patient awake alert and oriented x 3 Skin: Warm, dry, no rash Medical Decision & Procedures ER Provider Diagnostic Interpretation: Radiology results as stated below per my review and radiologist interpretation: CHEST 2 VIEWS ROUTINE CLINICAL HISTORY: Cough. COPD. COMPARISON STUDY: Chest radiograph February 05, 2016. FINDINGS: A calcified left upper lobe granuloma is unchanged. Moderate cardiomegaly is noted. There is no pneumothorax or pleural effusion. No consolidation is identified. Interstitial thickening is unchanged and may be chronic. IMPRESSION: 1. No change in interstitial thickening which is likely chronic. 2. Stable cardiomegaly. 3. No consolidation to suggest pneumonia. Electronically signed by: Hermes Zaragoza M.D. 09/27/2017 3:03 PM Medications Administered Medications (Trade) Dose Ordered Sig/Sera Route Start Time Stop Time Status Last Admin Dose Admin Albuterol/ Ipratropium (Duoneb) 3 ml NOW STAT INH 09/27/17 14:07 09/27/17 14:08 DC 09/27/17 14:20 3 ML Hydralazine HCl (Apresoline Tab) 25 mg NOW STAT PO 09/27/17 15:48 09/27/17 15:49 DC 09/27/17 15:56 25 MG ED Course 1405: Past medical records reviewed. The patient was evaluated in room B12A. A complete history and physical examination was performed. 1407: DuoNeb 3 ml INH. 1548: Hydralazine HCl 25 mg PO. 1555: I reevaluated the patient. She is feeling and resting comfortably. I discussed her results and discharge instructions and she verbalized complete understanding and agreement. Medical Decision Differential diagnosis: Infections, reactive airway disease, pneumonia, pneumothorax, COPD, CHF, cardiac ischemia, pulmonary embolism, musculoskeletal, gastrointestinal, as well as others were entertained. This patient was evaluated and appeared to be in no significant distress. She is noted to have faint scattered wheezes and a dry cough. She was given a DuoNeb treatment. Chest x-ray reveals no acute findings. Interstitial thickening is noted and chronic. Patient's is a poorly controlled diabetic in general, steroids will be avoided. She was given a prescription for Levaquin 500 mg daily for 7 days. She will continue her inhalers as prescribed. She also uses nebulizers. The patient will follow-up with her PCP this week for reevaluation and return to the ER for worsening of symptoms or any medical concerns. Medication Reconcilliation Current Medication List: was personally reviewed by me Blood Pressure Screening Patient's blood pressure: Elevated blood pressure Blood pressure disposition: Referred to PCP Impression Primary Impression: COPD exacerbation Additional Impression: Hypertension Scribe Attestation The scribe's documentation has been prepared under my direction and personally reviewed by me in its entirety. I confirm that the note above accurately reflects all work, treatment, procedures, and medical decision making performed by me. Departure Information Dispostion Home / Self-Care Prescriptions Levofloxacin (Levaquin) 500 Mg Tab 500 MG PO DAILY for 7 Days, #7 TAB Prov: Aide Epperson M.D. 09/27/17 Referrals Shubham Frausto M.D. (PCP) Patient Instructions My [facility] Additional Instructions Diagnosis: COPD exacerbation, hypertension Continue medications as prescribed. Continue inhalers and nebulizers as prescribed. Levaquin 500 mg daily for 7 days. Follow-up with your primary care provider this week for reevaluation. He will need to have her blood pressure rechecked. Return to the ER for worsening of symptoms or any medical concerns. Problem Qualifiers
--- NOTE | 2017-09-27 15:04 | DIAGNOSTIC IMAGING REPORT ---
CHEST 2 VIEWS ROUTINE CLINICAL HISTORY: Cough. COPD. COMPARISON STUDY: Chest radiograph February 05, 2016. FINDINGS: A calcified left upper lobe granuloma is unchanged. Moderate cardiomegaly is noted. There is no pneumothorax or pleural effusion. No consolidation is identified. Interstitial thickening is unchanged and may be chronic. IMPRESSION: 1. No change in interstitial thickening which is likely chronic. 2. Stable cardiomegaly. 3. No consolidation to suggest pneumonia. Electronically signed by: Hermes Zaragoza M.D. 09/27/2017 3:03 PM Dictated Date/Time: 09/27/2017 3:01 PM
[2017-09-27 15:42] VITALS: BP 212/62; PULSE 64; O2SAT 93
[2017-09-27] MEDS ORDERED: LEVO-366 PO (15:55)
== END 2017-09-27 16:06 | disposition home or self-care (01) ==
LOC: C.EDB 12:38
DX: J44.1 Chronic obstructive pulmonary disease with (acute) exacerbation (principal); I11.0 Hypertensive heart disease with heart failure; I50.33 Acute on chronic diastolic (congestive) heart failure; E11.9 Type 2 diabetes mellitus without complications; D64.9 Anemia, unspecified; E78.5 Hyperlipidemia, unspecified; E03.9 Hypothyroidism, unspecified; M54.5 Low back pain; E66.9 Obesity, unspecified; Z87.891 Personal history of nicotine dependence; Z90.710 Acquired absence of both cervix and uterus; Z79.82 Long term (current) use of aspirin; Z79.4 Long term (current) use of insulin; Z83.3 Family history of diabetes mellitus; Z82.49 Family history of ischemic heart disease and other diseases of the circulatory system

== ENCOUNTER → 2017-12-19 | Outpatient (CLI) | payer OTHER ==
[~2017-12-19] MED LIST changes: -HYDR-5688 PO
[2017-12-19 16:25] LABS: BASO % 0.5 %; BASO ABS # 0.04 K/uL (0-0.2); EOS % 4.1 %; EOS ABS # 0.36 K/uL (0-0.5); HEMOGLOBIN 13.5 g/dL (12.0-16.0); IG# 0.04 K/uL (0.00-0.02); LYMPH % 13.9 %; LYMPH ABS # 1.21 K/uL (1.2-3.4); MEAN CELL VOLUME 92.3 fL (80-100); MEAN CORPUSCULAR HEMOGLOBIN 30.4 pg (25-34); MEAN CORPUSCULAR HGB CONC 32.9 g/dl (32-36); MEAN PLATELET VOLUME 10.3 fL (7.4-10.4); NEUT ABS # 6.38 K/uL (1.4-6.5); PLATELET COUNT 281 K/uL (130-400); RED CELL DISTRIBUTION WIDTH CV 13.1 % (11.5-14.5); RED CELL DISTRIBUTION WIDTH SD 43.9 fL (36.4-46.3); WHITE BLOOD COUNT 8.73 K/uL (4.8-10.8)
[2017-12-19 16:41] LABS: ALBUMIN 3.3 gm/dl (3.4-5.0); ALT/SGPT 18 U/L (12-78); BLOOD UREA NITROGEN 26 mg/dl (7-18); CALCIUM 9.9 mg/dl (8.5-10.1); CARBON DIOXIDE 26 mmol/L (21-32); CHOLESTEROL 261 mg/dl (0-200); CREATININE 1.32 mg/dl (0.60-1.20); GLUCOSE 181 mg/dl (70-99); POTASSIUM 4.8 mmol/L (3.5-5.1); SODIUM 138 mmol/L (136-145)
[2017-12-19 16:51] LABS: ALKALINE PHOSPHATASE 102 U/L (45-117); AST/SGOT 12 U/L (15-37); LDL CHOLESTEROL CALCULATED 168 mg/dl; TOTAL PROTEIN 6.7 gm/dl (6.4-8.2)
[2017-12-20 07:06] LABS: HEMOGLOBIN A1C 7.3 % (4.5-5.6)
== END | disposition home or self-care (01) ==
LOC: C.LABBFT 14:02
PROVIDERS: ATTEND Internal Medicine
DX: E11.29 Type 2 diabetes mellitus with other diabetic kidney complication (principal); R53.83 Other fatigue

== ENCOUNTER → 2018-05-29 | Outpatient (CLI) | payer OTHER ==
[~2018-05-29] MED LIST changes: +AMLO2.5T PO; +APR50 PO; +CZR50 PO; +EZET10TA66 PO; -HYDR-4716 PO; +HYDR-5688 PO; -PRED1SUS3 OPL; -SPIR25TA PO; -SPRIN/30 INH
[2018-05-29 17:39] LABS: BLOOD UREA NITROGEN 34 mg/dl (7-18); CALCIUM 9.8 mg/dl (8.5-10.1); CARBON DIOXIDE 28 mmol/L (21-32); CREATININE 1.59 mg/dl (0.60-1.20); GLUCOSE 246 mg/dl (70-99); POTASSIUM 4.8 mmol/L (3.5-5.1); SODIUM 142 mmol/L (136-145)
== END | disposition home or self-care (01) ==
LOC: C.LABBFT 14:38
PROVIDERS: ATTEND Internal Medicine
DX: I16.1 Hypertensive emergency (principal)

== ENCOUNTER 2019-03-09 09:25 | Inpatient (IN) ==
[2019-03-09] MEDS ORDERED: ALBUT/IPRATROP 3MG/0.5MG NEB 3 ML VIAL INH STA (09:41)
[2019-03-09] MEDS ORDERED: NITROGLYCERIN 2% OINTMENT 30GM TUBE EXT STA (09:41)
[2019-03-09] MEDS ORDERED: methylPREDNISolone 125 MG/2 ML VIAL IV STA (09:41)
--- NOTE | 2019-03-09 10:18 | XRay Report ---
XR chest 1V portable HISTORY: Dyspnea COMPARISON: Chest 08/15/2018. FINDINGS: No pneumothorax. Small right pleural effusion has slightly increased in size. Trace left pl eural fusion persist. The heart remains mildly enlarged. Progressive interstitial and vascular thicke gerardo consistent with mild pulmonary edema. Calcified granuloma within the left upper lobe is again no srinivas. The right basilar densities are nonspecific but favor atelectasis from the pleural effusion. IMPRESSION: Interval progression of the mild interstitial pulmonary edema and small right pleural effusion. Trace left pleural effusion persists. The right basilar densities are noted. Electronically signed by: Gianni Ochoa M.D. 03/09/2019 10:16 AM
[2019-03-09 10:22] LABS: Basophils # (auto) 0.02 K/uL (0-0.2); Basophils % (auto) 0.2 %; Eosinophils # (auto) 0.15 K/uL (0-0.5); Eosinophils % (auto) 1.6 %; Hematocrit (blood only) 40.4 % (37-47); Hemoglobin 13.9 g/dL (12.0-16.0); Immature Granulocytes # (auto) 0.04 K/uL (0.00-0.02); Immature Granulocytes % (auto) 0.4 %; Lymphocytes # (auto) 0.96 K/uL (1.2-3.4); Mean Corpuscular Hgb Conc 34.4 g/dL (32-36); Mean Platelet Volume 10.1 fL (7.4-10.4); Monocytes # (auto) 0.62 K/uL (0.11-0.59); Monocytes % (auto) 6.5 %; Neutrophils # (auto) 7.81 K/uL (1.4-6.5); Neutrophils % (auto) 81.3 %; Platelet Count 270 K/uL (130-400); RDW Standard Deviation 45.3 fL (36.4-46.3); Red Blood Count 4.59 M/uL (4.2-5.4)
[2019-03-09] MEDS ORDERED: FUROSEMIDE 40 MG/4 ML VIAL IV STA (10:28)
--- NOTE | 2019-03-09 10:31 | Emergency Department Note ---
Entered by Shantel Glaser acting as a scribe for ED Provider Note CHIEF COMPLAINT: Shortness of breath HISTORY OF PRESENT ILLNESS: The patient is a 73 year old female who presents to the Emergency Room with complaints of constant difficulty breathing beginning a few days ago. The patient stated that she has had breathing troubles for a while, but within the past few days it has become much more difficult. She reports mild chest pain and a wet cough for the past few days as well. The patient reports she is on oxygen at home and used nebulizers with no relief. She also notes that she has been ret aining fluid for the past few months, for which she has been following with Dr. Frausto who directed her to come to the emergency department this morning. Patient stated she has been taking prednisone for PMR. She also notes that she has been experiencing leg swelling of which the left leg is swollen worse, what she notes is common. The patient also reported having abdominal pain from breathing Pt denies LOC, headache, fevers, chills, diaphoresis, visual changes, neck pain, nausea, vomiting, back pain, melena, hematochezia, urinary symptoms, numbness, weakness, lymphadenopathy, rash, or other complaints. REVIEW OF SYSTEMS: See HPI for pertinent positives and negatives. A total of ten systems were reviewed and were otherwise negative. PMHx/PSHx: SOB, Hypertension. COPD, CKD, Hypothyroid, Diabetes Cataract surgery, appendectomy, colonoscopy, hysterectomy SOCIAL HISTORY: Patient lives at home. PHYSICAL EXAM: GENERAL: Awake, alert, dyspneic appearing, in mild distress HENT: Normocephalic, atraumatic. Oropharynx unremarkable. EYES: PERRL. Normal conjunctiva. Sclera non-icteric. NECK: Inspection normal. Non-tender. Supple. No nuchal rigidity. FROM. No masses. RESPIRATORY: No wheezes. No rales. Occasional crackles. Increased respiratory effort. Diminished bilateral breath sounds. Pursed lip breathing. CARDIAC: Normal rate. Normal rhythm. No murmurs. No rubs. Extremities warm and well perfused. Pulses equal. No JVD. GI: Soft, non-distended. No tenderness to palpation. No rebound or guarding. No masses. RECTAL: Deferred. MUSCULOSKELETAL: Atraumatic. Chest examination reveals no tenderness. The back is symmetrical on inspection without obvious abnormality. There is no CVA tenderness to palpation. No joint edema. LOWER EXTREMITIES: Calves are not equal size bilaterally, left is larger than the right, and non-tender. 2+ edema on left leg, trace edema on right. No discoloration. NEURO: Normal sensorium. No sensory or motor deficits noted. SKIN: No rash or jaundice noted. EMERGENCY DEPARTMENT COURSE: 939: The patient was evaluated in room B12, and a complete history and physical examination were performed. 1036: I revaluated the patient. She is feeling a little better. 1142: I updated the patient on the results. I discussed treatment plan with the patient and family. They verbally agreed and understand. 1146: I [place] [facility] [place]. She will evaluate for further management. MEDICAL DECISION MAKING: Triage Nursing notes reviewed and agree them. Additional history obtained from the family. The patient's history was concerning for shortness of breath. Differential diagnosis: Etiologies such as pneumonia, COPD, reactive airway disease, CHF, cardiac ischemia, pulmonary embolism, pneumothorax, musculoskeletal, infections, gastrointestinal, as well as others were entertained. Physical examination: As above. ER treatment provided: Hour-long DuoNeb Solu-Medrol Nitropaste Lasix On reassessment the patient felt better. Diagnostic interpretation by me: The electrocardiogram was negative for pathologic change. The labs revealed an unremarkable CBC and chemistry panel. The patient has mild hyperglycemia. Troponin is borderline elevated. Imaging studies: Chest x-ray was performed and revealed congestive change. Consultation: A consultation was placed with the hospitalist. The case was discussed and diag nostics were reviewed. The patient was evaluated in the ER for further treatment. IMPRESSION: SOB Elevated Troponin COPD CHF PLAN: Being evaluated by hospitalist The scribe's documentation has been prepared under my direction and personally reviewed by me in its entirety. I confirm that the note above accurately reflects all work, treatment, procedures, and medical decision making performed by me. 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 This was not seen on 04/[address] Pt started on Plavix. Carotid artery stenosis > 70% stenosis in VAN 50-69% stenosis in LICA >50% stenosis in both ECAs *SURGEON AWARE Congestive heart failure Chronic diastolic, EF 65-70% Degenerative disc disease cervical Diabetes on insulin GERD (gastroesophageal reflux disease) Hx of chest pain Hypertension Hypothyroid Surgical History H/O rotator cuff surgery (Acute) left shoulder History of appendectomy History of cataract surgery History of colonoscopy History of hysterectomy History of tooth extraction Hx of cholecystectomy Family History Mother Family history of diabetes mellitus Brother Family history of diabetes mellitus Social History Preferred Language: Amharic Communication Ability: Effective Visual Impairment: No Limitations Beliefs That Will Affect Care: None marital status: Current Living Situation: Spouse Other Information That Helps Us Care for You: No Feels Safe at Home: Yes Safety Concerns: Feels Safe At This Time Smoking Status: Former smoker Second Hand Exposure: No Hx Alcohol Use: No Hx Substance Use: No Results & Data Vital Signs Vital Signs - 24 hr 03/09/19 09:28 03/09/19 09:48 03/09/19 09:56 Temperature 36.6 C Temperature Source Oral Sepsis Recent Fever Within 48 Hours No Sepsis New/Unexplained Change in Mental Status No Sepsis Action Taken by Nursing No Action Required Pulse Rate 77 Pulse Rate [Finger] 71 Respiratory Rate 30 H 22 Respiratory Effort / Characteristics Spontaneous Respiratory Depth Blood Pressure 214/70 H Blood Pressure [Right Arm] 132/83 Blood Pressure Mean 118 Blood Pressure Mean [Right Arm] 99 Pulse Oximetry 89 L 96 94 Oxygen Delivery Method Room Air Nasal Cannula Nasal Cannula Oxygen Flow Rate 2 2 03/09/19 10:10 03/09/19 11:23 03/09/19 12:02 Temperature Temperature Source Sepsis Recent Fever Within 48 Hours Sepsis New/Unexplained Change in Mental Status Sepsis Action Taken by Nursing Pulse Rate Pulse Rate [Finger] 77 88 80 Respiratory Rate 22 26 H 18 Respiratory Effort / Characteristics Spontaneous Non-Labored Respiratory Depth Normal Normal Blood Pressure Blood Pressure [Right Arm] 188/98 H 179/62 H Blood Pressure Mean Blood Pressure Mean [Right Arm] 128 101 Pulse Oximetry 97 99 99 Oxygen Delivery Method Nasal Cannula Nebulizer Nasal Cannula Oxygen Flow Rate 2 2 Home Medications Current Medication List: was personally reviewed by me Laboratory Data Attestation: I reviewed the patient's lab results. Result diagrams: 03/09/19 10:00 03/09/19 15:58 Lab Results 03/09/19 03/09/19 03/09/19 Range/Units 10:00 10:00 10:00 WBC 9.60 (4.8-10.8) K/uL RBC 4.59 (4.2-5.4) M/uL Hgb 13.9 (12.0-16.0) g/dL Hct 40.4 (37-47) % MCV 88.0 (80-100) fL MCH 30.3 (25-34) pg MCHC 34.4 (32-36) g/dL RDW Std Deviation 45.3 (36.4-46.3) fL RDW Coeff of Stacey 14.0 (11.5-14.5) % Plt Count 270 (130-400) K/uL MPV 10.1 (7.4-10.4) fL Immature Gran % (Auto) 0.4 % Neut % (Auto) 81.3 % Lymph % (Auto) 10.0 % Mitchell % (Auto) 6.5 % Eos % (Auto) 1.6 % Baso % (Auto) 0.2 % Immature Gran # (Auto) 0.04 H (0.00-0.02) K/uL Neut # (Auto) 7.81 H (1.4-6.5) K/uL Lymph # (Auto) 0.96 L (1.2-3.4) K/uL Mitchell # (Auto) 0.62 H (0.11-0.59) K/uL Eos # (Auto) 0.15 (0-0.5) K/uL Baso # (Auto) 0.02 (0-0.2) K/uL PT 10.4 (9.0-12.0) Seconds INR 1.0 (0.9-1.1) APTT 21.3 (21.0-31.0) Seconds PTT Ratio 0.8 Sodium 141 (136-145) mmol/L Potassium 3.9 (3.5-5.1) mmol/L Chloride 108 H (98-107) mmol/L Carbon Dioxide 27 (21-32) mmol/L Anion Gap 6.0 (3-11) BUN 23 H (7-18) mg/dl Creatinine 1.03 (0.6-1.2) mg/dl Est Cr Clr Drug Dosing 49.8 ml/min Est GFR ( Amer) 62.0 Est GFR (Non-Af Amer) 53.5 BUN/Creatinine Ratio 22.7 H (10-20) Glucose 126 H (70-99) mg/dl Calcium 9.9 (8.5-10.1) mg/dl Magnesium 2.1 (1.8-2.4) mg/dl Total Bilirubin 0.5 (0.2-1) mg/dl AST 11 L (15-37) U/L ALT 19 (12-78) U/L Alkaline Phosphatase 86 (45-117) U/L Troponin I 0.065 H* (0-0.045) ng/ml Total Protein 7.0 (6.4-8.2) gm/dl Albumin 3.0 L (3.4-5.0) gm/dl Globulin 4.0 (2.5-4.0) gm/dl Albumin/Globulin Ratio 0.8 L (0.9-2) Administered Medications Albuterol (Duoneb) 3 ml NEB QIDR [facility] Stop: 04/08/19 15:59 Last Admin: 03/09/19 15:38 Dose: 3 ml Documented by: [id number] Amlodipine Besylate (Norvasc) 2.5 mg PO QAM [facility] Stop: 04/08/19 14:31 Last Admin: 03/09/19 17:13 Dose: 2.5 mg Documented by: [id number] Furosemide 20 mg/ Syringe 2 mls @ 4 mls/min IV [id number] JOSE Stop: 04/08/19 16:59 Last Admin: 03/09/19 17:14 Dose: 4 mls/min Documented by: [id number] Insulin Aspart (Novolog Flexpen) 0 units SC ACHS JOES Stop: 04/08/19 16:29 Last Admin: 03/09/19 17:12 Dose: 14 units Documented by: [id number] Cosigned by: [id number] Insulin Glargine (Lantus Solostar Pen) 20 units SC DAILY JOSE Stop: 04/08/19 14:59 Last Admin: 03/09/19 17:12 Dose: 20 units Documented by: [id number] Cosigned by: [id number] Miscellaneous (Order Awaiting Action) 1 ea N/A QS JOSE Stop: 04/08/19 15:59 Last Admin: 03/09/19 15:23 Dose: Not Given Documented by: [id number] Discontinued Medications Albuterol (Duoneb) 12 ml INH ONE STA Stop: 03/09/19 09:42 Last Admin: 03/09/19 10:09 Dose: 12 ml Documented by: [id number] Furosemide (Lasix) 40 mg IV NOW STA Stop: 03/09/19 10:29 Last Admin: 03/09/19 11:01 Dose: 40 mg Documented by: [id number] Methylprednisolone (Solumedrol) 125 mg IV NOW STA Stop: 03/09/19 09:42 Last Admin: 03/09/19 11:01 Dose: 125 mg Documented by: [id number] Nitroglycerin (Nitro-Bid 2%) 0.5 inch EXT NOW STA Stop: 03/09/19 09:42 Last Admin: 03/09/19 11:00 Dose: 0.5 inch Documented by: [id number] Imaging Data Radiologist's Impression: Radiology results as stated below per my review and the radiologist's interpretation: XR chest 1V portable HISTORY: Dyspnea COMPARISON: Chest 08/15/2018. FINDINGS: No pneumothorax. Small right pleural effusion has slightly increased in size. Trace left pleural fusion persist. The heart remains mildly enlarged. Progressive interstitial and vascular thickening consistent with mild pulmonary edema. Calcified granuloma within the left upper lobe is again noted. The right basilar densities are nonspecific but favor atelectasis from the pleural effusion. IMPRESSION: Interval progression of the mild interstitial pulmonary edema and small right pleural effusion. Trace left pleural effusion persists. The right basilar densities are noted. Electronically signed by: Gianni Ochoa M.D. 03/09/2019 10:16 AM ECG Data Attestation: I personally reviewed and interpreted this ECG as follows: Indication: SOB/dyspnea Rate (beats per minute): 74 Rhythm: sinus rhythm Findings: + PAC, + ST depression (lateral) and + T-wave inversion (inferior); no PVC and no ST elevation Comparison ECG Date: from (08/12/18) Change: no significant change Blood Pressure Blood Pressure Findings: Elevated blood pressure Blood Pressure Disposition: further management by hospitalist Discharge Plan Visit Data *Final* Discharge Date/Time: 03/09/19 13:36 Chief Complaint: Shortness of Breath/Dyspnea Stated Complaint: SOB ED Provider: Lazarus Doyle Discharge Problem: COPD (chronic obstructive pulmonary disease), Elevated troponin, CHF (congestive heart failure), SOB (shortness of breath) Patient Disposition: Admitted As Inpatient Discharge Instructions Interventions: ED Discharge Assessment Last Done: 03/09/19 13:36 Discharge Problem: COPD (chronic obstructive pulmonary disease) Qualifiers: COPD type: unspecified COPD Qualified Code(s): J44.9 - Chronic obstructive p ulmonary disease, unspecified CHF (congestive heart failure) Qualifiers: Heart failure type: unspecified Heart failure chronicity: acute Qualified Code(s): I50.9 - Heart failure, unspecified The scribe's documentation has been prepared under my direction and personally reviewed by me in its entirety. I confirm that the note above accurately reflects all work, treatment, procedures, and medical decision making performed by me.
[2019-03-09 10:34] LABS: Partial Thromboplastin Ratio 0.8; Partial Thromboplastin Time 21.3 Seconds (21.0-31.0); Prothrombin Time 10.4 Seconds (9.0-12.0)
[2019-03-09 10:43] LABS: BUN Creatinine Ratio 22.7 (10-20); Calcium 9.9 mg/dl (8.5-10.1); Creatinine Clr Calc Pharmacy 49.8 ml/min; Est GFR (Non-African American) 53.5; Magnesium 2.1 mg/dl (1.8-2.4); Potassium 3.9 mmol/L (3.5-5.1)
[2019-03-09 10:56] LABS: Albumin Globulin Ratio 0.8 (0.9-2); Bilirubin,Total 0.5 mg/dl (0.2-1); Troponin I 0.065 ng/ml (0-0.045)
--- NOTE | 2019-03-09 13:06 | History & Physical Report ---
Date of Service March 09, 2019 Assessment & Plan (1) SOB (shortness of breath): Patient presently with no respiratory distress. Adequate oxygenation on 2L NC. CXR suggestive of pulmonary edema. Patient endorses increased edema -Admit to med surge with telemetry -Check BNP -CHF plan as below Present on Admission?: Yes (2) CHF (congestive heart failure): Patient with chronic diastolic CHF presenting with progressive dyspnea and edema. Presumed CHF exacerbation. Patient states she is compliant with medications and diet, although, seems to be somewhat unclear on the medications she is taking. -Lasix 20mg IV BID -Daily weights -BMP BID -Strict I/O monitoring -Continue ARB and BB Present on Admission?: Yes (3) COPD (chronic obstructive pulmonary disease): Patient with O2 dependent COPD. Presently with no wheezing although diminished breath sounds. -DuoNeb q 6 hours -Albuterol q 2 hours PRN -Steroids given in ER, will hold additional IV steroids for now. -Supplemental O2 as needed Present on Admission?: Yes (4) Elevated troponin: Patient with mildly elevated troponin, some complaints of intermittent chest discomfort. She had a dobutamine stress echo last year which was negative for inducible ischemia. EKG unchanged from prior. Suspect demand in setting of CHF and HTN urgency on arrival -Telemetry monitoring -Trend troponin x 3 sets -Continue ASA, Zetia, Metoprolol and Losartan Present on Admission?: Yes (5) CKD (chronic kidney disease): Stable BUN and Cr, improved from prior -Continue to monitor BUN, Cr, electrolytes and UOP -Caution with diuresis and ARB, check BMP BID -Avoid nephrotoxic agents -Renal dosing as appropirate Present on Admission?: Yes (6) Hypertension: Patient presented with severe hypertension, possibly contributing to SOB. Improved with Nitro patch. ER medications have only Metoprolol and Amlodipine for antihypertensives. Per [employer] she is also taking Hydralazine 50mg po TID and Losartan 50mg po BID (although Hydralazine not mentioned in last note from 11 November 2018). -Continue Metoprolol 100mg po BID -Continue Amlodipine 2.5mg po daily -Losartan 50mg po BID -Closely monitor blood pressure (7) Hypothyroid: Chronic -Continue Synthroid -TSH with AM labs Present on Admission?: Yes (8) Diabetes: Blood sugar presently 126. AIC=6.1 in July 2018. Patient reports adequate control at home. -Continue lantus 20u q daily, administer dose now as patient did not take her Lantus prior to ER -ISS -CC diet as tolerated Present on Admission?: Yes (9) CVA (cerebral vascular accident): History of CVA. Presenlty neurologically intact -Continue ASA 81mg po daily -Continue Zetia, patient with allergy to Statins (10) Polymyalgia rheumatica: Chronic. Stable. Patient takes Prednisone 10mg tablets, 1-2/day for symptoms -Prednisone 20mg po daily -Hydrocodone/Acetaminophen 1 tablet q 8 hours as needed for pain INSOMNIA - Ambien 5mg po qHS PRN insomnia F/E/N - Heplock. Monitor electrolytes and replete as needed. CC/Low Na diet as tolerated Ppx - Lovenox Code - DNR/DNI Dispo - Admission to [facility] Tele Present on Admission?: Yes History of Present Illness Chief Complaint: SOB Primary Care Provider: Shubham Frausto MD Miya Mcgarry is a pleasant 73yo C female with multiple medical problems to include O2 dependent COPD on 2L NC, chronic diastolic CHF, CKD presenting with shortness of breath progressive over the last week with acute worsening over the last 1-2 days. Patient with moist cough, unable to expectorate sputum, worsening bilateral LE edema, L > R. She has chronic orthopnea and frequently sleeps upright. Reports weighing appx 189# at her PCP 6 months ago which is what she weighs presently. She denies fevers/chills/sweats. No history of blood clots. No wheezing. She has had a runny nose lately. Also with some intermittent dull substernal chest pain. Upon arrival to the ER patient was markedly hypertensive at 214/70, RR of 30 saturating 89% on room air. 0.5 inch of nitro paste was placed with improvement in blood pressure. Patient presently without complaint. States that she feels better. ER Course: Albuterol 12mL, Lasix 40mg IV, Solumedrol 125mg, Nitro paste 0.5 in Allergies Allergy/AdvReac Type Severity Reaction Status Date / Time LUCIANA Inhibitors AdvReac Intermediate COUGH Verified 03/09/19 11:01 [id number]-[id number]-Jpb Reductase AdvReac Intermediate MYALGIA Verified 03/09/19 11:01 Inhibitor doxycycline AdvReac Unknown Diarrhea Verified 03/09/19 11:01 Home Medications Home Medications Medication Instructions Recorded Confirmed Type [place] Advantage 1 tab PO QAM 08/06/18 03/09/19 History Lantus U-100 Insulin 20 unit SUBCUT DAILY PRN 08/06/18 03/09/19 History acetaminophen 1 tab PO DAILY PRN 08/06/18 03/09/19 History albuterol sulfate 2.5 mg INHALATION QID PRN 08/06/18 03/09/19 History amlodipine [Norvasc] 2.5 mg PO QAM 08/06/18 03/09/19 History aspirin 81 mg PO QAM 08/06/18 03/09/19 History ezetimibe [Zetia] 10 mg PO QAM 08/06/18 03/09/19 History fluticasone propion-salmeterol 1 inh INHALATION QAM 08/06/18 03/09/19 History [Advair Diskus] furosemide [Lasix] 20 mg PO QAM 08/06/18 03/09/19 History levothyroxine [Synthroid] 88 mcg PO QAM 08/06/18 03/09/19 History metoprolol tartrate [Lopressor] 100 mg PO BID 08/06/18 03/09/19 History zolpidem [Ambien] 5 mg PO HS 08/06/18 03/09/19 History hydrocodone-acetaminophen 1 tab PO UD PRN 03/09/19 03/09/19 History prednisone 10 mg PO BID 03/09/19 03/09/19 History Past Med/Surg History Medical History SOB (shortness of breath) (Acute) exertional CKD (chronic kidney disease) COPD (chronic obstructive pulmonary disease) CVA (cerebral vascular accident) 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 This was not seen on 04/[address] Pt started on Plavix. Carotid artery stenosis > 70% stenosis in VAN 50-69% stenosis in LICA >50% stenosis in both ECAs *SURGEON AWARE Congestive heart failure Chronic diastolic, EF 65-70% Degenerative disc disease cervical Diabetes on insulin GERD (gastroesophageal reflux disease) Hx of chest pain Hypertension Hypothyroid Surgical History H/O rotator cuff surgery (Acute) left shoulder History of appendectomy History of cataract surgery History of colonoscopy History of hysterectomy History of tooth extraction Hx of cholecystectomy Family History Mother Family history of diabetes mellitus Brother Family history of diabetes mellitus Social History Preferred Language: Syrian Communication Ability: Effective Visual Impairment: No Limitations Beliefs That Will Affect Care: None marital status: Current Living Situation: Spouse Feels Safe at Home: Yes Smoking Status: Former smoker Second Hand Exposure: No Hx Alcohol Use: No Hx Substance Use: No Review of Systems Review of Systems: All systems reviewed & are unremarkable except as noted in HPI & below Physical Exam Physical Exam: General: patient resting comfortably, NAD, non-toxic in appearance, AA&O x 4 Skin: warm, dry, intact, no rashes or lesions HEENT: NC/AT, PERRL, EOMI, anicteric sclera, conjunctiva without injection, external ear normal to inspection and nontender, nares patent, moist mucus membranes, dentures in place, no oropharyngeal lesions, neck supple, trachea midline, no LAD, no thyromegaly, no JVD Heart: +S1/S2, irregular, no m/r/g Lungs: diminished breath sounds in bilateral bases, +crackles in mid-lung nichols bilaterally, no rhonchi/wheezing, speaking in complete sentences with no dyspnea Abd: obese, +BS, soft, NT/ND, no masses/organomegaly/ascites Ext: warm, 2+ pulses in UE/LE bilaterally, no clubbing/cyanosis, 2+ pitting edema of bilateral LE, L > R Neuro: nonfocal, patient AA&O x 4, speech intact, no facial droop, moving all extremities on command with equal strength 5/5 Results & Data Vital Signs (Past 12 Hours) Vital Signs Temp Pulse Pulse Resp BP BP Pulse Ox 03/09/19 12:02 80 18 179/62 H 99 03/09/19 11:23 88 26 H 188/98 H 99 03/09/19 10:10 77 22 97 03/09/19 09:56 71 22 132/83 94 03/09/19 09:48 96 03/09/19 09:28 36.6 C 77 30 H 214/70 H 89 L Laboratory Results Lab Results 03/09/19 03/09/19 03/09/19 Range/Units 10:00 10:00 10:00 WBC 9.60 (4.8-10.8) K/uL RBC 4.59 (4.2-5.4) M/uL Hgb 13.9 (12.0-16.0) g/dL Hct 40.4 (37-47) % MCV 88.0 (80-100) fL MCH 30.3 (25-34) pg MCHC 34.4 (32-36) g/dL RDW Std Deviation 45.3 (36.4-46.3) fL RDW Coeff of Stacey 14.0 (11.5-14.5) % Plt Count 270 (130-400) K/uL MPV 10.1 (7.4-10.4) fL Immature Gran % (Auto) 0.4 % Neut % (Auto) 81.3 % Lymph % (Auto) 10.0 % [place] % (Auto) 6.5 % Eos % (Auto) 1.6 % Baso % (Auto) 0.2 % Immature Gran # (Auto) 0.04 H (0.00-0.02) K/uL Neut # (Auto) 7.81 H (1.4-6.5) K/uL Lymph # (Auto) 0.96 L (1.2-3.4) K/uL [place] # (Auto) 0.62 H (0.11-0.59) K/uL Eos # (Auto) 0.15 (0-0.5) K/uL Baso # (Auto) 0.02 (0-0.2) K/uL PT 10.4 (9.0-12.0) Seconds INR 1.0 (0.9-1.1) APTT 21.3 (21.0-31.0) Seconds PTT Ratio 0.8 Sodium 141 (136-145) mmol/L Potassium 3.9 (3.5-5.1) mmol/L Chloride 108 H (98-107) mmol/L Carbon Dioxide 27 (21-32) mmol/L Anion Gap 6.0 (3-11) BUN 23 H (7-18) mg/dl Creatinine 1.03 (0.6-1.2) mg/dl Est Cr Clr Drug Dosing 49.8 ml/min Est GFR ( Amer) 62.0 Est GFR (Non-Af Amer) 53.5 BUN/Creatinine Ratio 22.7 H (10-20) Glucose 126 H (70-99) mg/dl Calcium 9.9 (8.5-10.1) mg/dl Magnesium 2.1 (1.8-2.4) mg/dl Total Bilirubin 0.5 (0.2-1) mg/dl AST 11 L (15-37) U/L ALT 19 (12-78) U/L Alkaline Phosphatase 86 (45-117) U/L Troponin I 0.065 H* (0-0.045) ng/ml Total Protein 7.0 (6.4-8.2) gm/dl Albumin 3.0 L (3.4-5.0) gm/dl Globulin 4.0 (2.5-4.0) gm/dl Albumin/Globulin Ratio 0.8 L (0.9-2) Diagnostic Findings XR chest 1V portable HISTORY: Dyspnea COMPARISON: Chest 08/15/2018. FINDINGS: No pneumothorax. Small right pleural effusion has slightly increased in size. Trace left pleural fusion persist. The heart remains mildly enlarged. Progressive interstitial and vascular thickening consistent with mild pulmonary edema. Calcified granuloma within the left upper lobe is again noted. The right basilar densities are nonspecific but favor atelectasis from the pleural effusion. IMPRESSION: Interval progression of the mild interstitial pulmonary edema and small right pleural effusion. Trace left pleural effusion persists. The right basilar densities are noted. Electronically signed by: Gianni Ochoa M.D. 03/09/2019 10:16 AM Dictated: 03/09/19 1015 Transcribed: 03/09/19 1015 Dobutamine Stress Echocardiogram: 05/08/18 There is mild asymmetric left ventricular hypertrophy Left ventricular systolic function is normal. The left atrium is mildly dilated. Right ventricular systolic pressure is elevated at 30-40mmHg. Low risk study for inducible ischemia with likely false positive EKG response to dobutamine infusion. Hypertensive response to dobutamine infusion ECG Additional Comments: The study shows SR at 74bpm with PACs, normal axis, RV=641, QRS=68, MVo=688, ST changes in II, III and aVF - similar to prior study from Code Status & VTE Plan Code Status DNR/DNI per discussion with patient Critical Care Time Critical Care Time: No (1) CHF (congestive heart failure) Heart failure chronicity: acute Heart failure type: unspecified Qualified Code(s): I50.9 - Heart failure, unspecified (2) COPD (chronic obstructive pulmonary disease) COPD type: unspecified COPD Qualified Code(s): J44.9 - Chronic obstructive pulmonary disease, unspecified (3) Hypertension Hypertension type: essential hypertension Qualified Code(s): I10 - Essential (primary) hypertension (4) Hypothyroid Hypothyroidism type: unspecified Qualified Code(s): E03.9 - Hypothyroidism, unspecified (5) CVA (cerebral vascular accident) CVA mechanism: unspecified Qualified Code(s): I63.9 - Cerebral infarction, unspecified
[2019-03-09] MEDS ORDERED: ALBUTEROL 0.5% NEB SOLN 2.5 MG/0.5 ML VIAL NEB PRN (14:32)
[2019-03-09] MEDS ORDERED: HYDROCODONE/ACETAMOPHEN 5/325MG TAB PO PRN (14:32)
[2019-03-09] MEDS ORDERED: GLUCAGON FOR INJ 1 MG VIAL SQ PRN (14:32)
[2019-03-09] MEDS ORDERED: GLUCOSE 40% GEL 15 GM TUBE PO PRN (14:32)
[2019-03-09] MEDS ORDERED: GLUCOSE 10 TABS/TUBE PO PRN (14:32)
[2019-03-09] MEDS ORDERED: CARBOHYDRATES FOR HYPOGLYCEMIA PO PRN (14:32)
[2019-03-09] MEDS ORDERED: DEXTROSE 50% 50 ML SYRINGE IV PRN (14:32)
[2019-03-09] MEDS: ALBUT/IPRATROP 3MG/0.5MG NEB 3 ML VIAL NEB SCH ×2 (15:38→19:45)
[2019-03-09 16:50] LABS: BUN Creatinine Ratio 20.1 (10-20); Calcium 9.8 mg/dl (8.5-10.1); Creatinine Clr Calc Pharmacy 37.7 ml/min; Est GFR (African American) 44.3; Est GFR (Non-African American) 38.2; Potassium 4.2 mmol/L (3.5-5.1)
[2019-03-09 17:01] LABS: Beta-Hydroxybutyrate 1.99 mg/dl (0.2-2.81); Troponin I 0.059 ng/ml (0-0.045)
[2019-03-09] MEDS: INSULIN ASPART 100 UNITS/ML 3 ML PEN SC SCH ×2 (17:12→20:51)
[2019-03-09] MEDS: INSULIN GLARGINE SOLOSTAR 100 UNITS/ML 3 ML PEN SC SCH (17:12)
[2019-03-09] MEDS: AMLODIPINE BESYLATE 5 MG TAB PO SCH (17:13)
[2019-03-09] MEDS: FUROSEMIDE 20 MG in SYRINGE 0 ML IV SCH (17:14)
[2019-03-09] MEDS: ACETAMINOPHEN 500 MG TAB PO PRN (19:08)
[2019-03-09] MEDS: LOSARTAN POTASSIUM 50 MG TAB PO SCH (20:52)
[2019-03-09] MEDS: METOPROLOL TARTRATE 100 MG TAB PO SCH (20:52)
[2019-03-09] MEDS: predniSONE 10 MG TABLET PO SCH (20:53)
[2019-03-09] MEDS: ZOLPIDEM TARTRATE 5 MG TAB PO SCH (22:48)
[2019-03-10 05:10] LABS: BUN Creatinine Ratio 23.2 (10-20); Calcium 9.5 mg/dl (8.5-10.1); Creatinine Clr Calc Pharmacy 33.3 ml/min; Est GFR (African American) 38.1; Est GFR (Non-African American) 32.9; Potassium 4.5 mmol/L (3.5-5.1)
[2019-03-10] MEDS: LEVOTHYROXINE SODIUM 88 MCG TABLET PO SCH (05:36)
[2019-03-10] MEDS: ALBUT/IPRATROP 3MG/0.5MG NEB 3 ML VIAL NEB SCH ×4 (07:00→19:16)
[2019-03-10] MEDS: AMLODIPINE BESYLATE 5 MG TAB PO SCH (07:48)
[2019-03-10] MEDS: predniSONE 10 MG TABLET PO SCH ×2 (07:48→21:21)
[2019-03-10] MEDS: ASPIRIN 81 MG ECTAB PO SCH (07:48)
[2019-03-10] MEDS: LOSARTAN POTASSIUM 50 MG TAB PO SCH ×2 (07:48→21:20)
[2019-03-10] MEDS: METOPROLOL TARTRATE 100 MG TAB PO SCH ×2 (07:48→21:21)
[2019-03-10] MEDS: EZETIMIBE 10 MG TABLET PO SCH (07:48)
[2019-03-10] MEDS: ENOXAPARIN INJ 40 MG/0.4 ML SYR SQ SCH (07:48)
[2019-03-10] MEDS: INSULIN ASPART 100 UNITS/ML 3 ML PEN SC SCH ×4 (07:49→21:22)
[2019-03-10] MEDS: FUROSEMIDE 20 MG in SYRINGE 0 ML IV SCH ×2 (07:49→17:43)
[2019-03-10] MEDS: INSULIN GLARGINE SOLOSTAR 100 UNITS/ML 3 ML PEN SC SCH (07:49)
[2019-03-10 09:05] LABS: Appearance Urine Clear (Clear); Bacteria Urine Automated Negative (Negative); Bilirubin Urine Negative (Negative); Blood Urine Negative (Negative); Color Urine Yellow; Glucose Urine UA Negative (Negative); Ketones Urine Negative (Negative); Leukocyte Esterase Urine Negative (Negative); Nitrite Urine Negative (Negative); Protein Urine Trace (Negative); RBC Urine Automated 0-4 /hpf (0-4); Specific Gravity Urine 1.012 (1.000-1.030); Urobilinogen Urine Negative (Negative); pH Urine 5.5 (4.5-7.5)
[2019-03-10] MEDS ORDERED: AMLODIPINE BESYLATE 5 MG TAB PO ONE (09:16)
[2019-03-10 16:50] LABS: BUN Creatinine Ratio 26.7 (10-20); Calcium 10.3 mg/dl (8.5-10.1); Creatinine Clr Calc Pharmacy 33.6 ml/min; Est GFR (African American) 39.1; Est GFR (Non-African American) 33.7; Potassium 4.2 mmol/L (3.5-5.1)
--- NOTE | 2019-03-10 17:23 | Hospitalist Progress Note ---
Date of Service March 10, 2019 Assessment & Plan (1) SOB (shortness of breath): Secondary to acute CHF as below. CXR suggestive of pulmonary edema. Patient endorses increased edema -CHF plan as below (2) CHF (congestive heart failure): Patient with chronic diastolic CHF presenting with progressive dyspnea and edema, pulm edema on CXR, BNP elevated at 9000. Patient states she is compliant with medications and diet, although, seems to be somewhat unclear on the medications she is taking. 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 Has no wheezing or evidence of COPD exacerbation. She did receiv IV SOlu Medrol in the ER x 1 dose but not continued -is on her home prednisone 10mg po bid for PMR -continue DuoNeb q 6 hours -Albuterol q 2 hours PRN -Supplemental O2 as needed -restart home Advair which should be 1 puff bid -is also supposed to be on Spiriva once daily as per outpt chart (4) Elevated troponin: Patient with mildly elevated troponin, some complaints of intermittent chest discomfort on admission. Trop ternded down after admission to 0.059 and is consistent with myocardial demand ischemia secondary to acute CHF and hypertensive urgency. She had a dobutamine stress echo last year which was negative for inducible ischemia. EKG unchanged from prior with TWI in inferior leads. 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 Improved with Nitro paste. Per [employer] she is also taking Hydralazine 50mg po TID and Losartan 50mg po BID (although Hydralazine not mentioned in last note from 11 November 2018). -Continue Metoprolol 100mg po BID -Continue Amlodipine and increase to 5mg po daily -restarted home Losartan 50mg po BID -Closely monitor blood pressure -unclear if on hydralazine or not -may benefit from visiting RN to help her make sure she is taking meds properly since she is unable to recall her meds here (7) Hypothyroid: Chronic -Continue Synthroid home dose -TSH mildly low here (8) Diabetes: Blood sugars elevated here initially due to corticosteroids, now improved since off IV SOlu Medrol AIC=6.1 in July 2018. Patient reports adequate control at home. -Continue lantus 20u q daily and tighten down CF on SSI a bit (9) CVA (cerebral vascular accident): History of CVA. Presently neurologically intact -Continue ASA 81mg po daily -Continue Zetia, patient with allergy to Statins (10) Polymyalgia rheumatica: Chronic. Stable. Patient takes Prednisone 10mg tablets, 1-2/day for symptoms -Prednisone 20mg po daily -Hydrocodone/Acetaminophen 1 tablet q 8 hours as needed for pain INSOMNIA - Ambien 5mg po qHS PRN insomnia Ppx - Lovenox Code - DNR/DNI Dispo - continued stay on Med Tele, possible dc to home tomorrow, may benefit from CHF clinic follow up PT/OT evals placed to assist in determination of suitability for home placement Subjective Feeling much better, legs less swollen. No further chest pressure. Is urinating quite a bit. Parvez po Tele with NSR, PACs, rates 60s-70s Review of Systems Review of Systems: All systems reviewed & are unremarkable except as noted in HPI & below Physical Exam Constitutional: WD/WN, vitals as above + obese Eyes: PERRL, conjunctivae normal, anicteric sclerae Neck: trachea midline, no thyromegaly Respiratory: normal respiratory effort, lungs clear to auscultation Cardiovascular: Rate/Rhythm: regular rate and regular rhythm Extremities: + edema (1+ pitting edema left leg, trace pitting edema right leg) Gastrointestinal (Abdomen): normal bowel sounds, soft, nontender, no hepatosplenomegaly Musculoskeletal: Extremities: extremities normal to inspection; no cyanosis and no clubbing Skin: no rashes, warm and dry Neurologic: moves all extremities and awake; no focal motor deficits Psychiatric: A+Ox3, euthymic affect Results & Data Vital Signs (Past 12 Hours) Vital Signs Temp Pulse Pulse Resp BP BP Pulse Ox 03/10/19 15:40 68 03/10/19 15:09 79 18 96 03/10/19 15:04 36.4 C L 18 138/70 91 03/10/19 11:27 58 L 16 92 03/10/19 11:10 36.6 C 58 L 20 173/80 H 95 03/10/19 09:00 72 03/10/19 08:01 36.5 C 78 16 193/98 H 90 03/10/19 07:00 95 Laboratory Results 03/10/19 03/10/19 03/10/19 Range/Units 16:19 16:05 11:32 Sodium 139 (136-145) mmol/L Potassium 4.2 (3.5-5.1) mmol/L Chloride 106 (98-107) mmol/L Carbon Dioxide 28 (21-32) mmol/L Anion Gap 5.0 (3-11) BUN 40 H (7-18) mg/dl Creatinine 1.51 H (0.6-1.2) mg/dl Est Cr Clr Drug Dosing 33.6 ml/min Est GFR ( Amer) 39.1 Est GFR (Non-Af Amer) 33.7 BUN/Creatinine Ratio 26.7 H (10-20) Glucose 178 H (70-99) mg/dl POC Glucose 162 H 147 H (70-99) Calcium 10.3 H (8.5-10.1) mg/dl TSH (0.300-4.500) uIu/ml Urine Color Urine Appearance (Clear) Urine pH (4.5-7.5) Ur Specific [place] (1.000-1.030) Urine Protein (Negative) Urine Glucose (UA) (Negative) Urine Ketones (Negative) Urine Blood (Negative) Urine Nitrite (Negative) Urine Bilirubin (Negative) Urine Urobilinogen (Negative) Ur Leukocyte Esterase (Negative) Urine WBC (Auto) (0-5) /hpf Urine RBC (Auto) (0-4) /hpf U Hyaline Cast (Auto) (0-5) /lpf U Epithel Cells (Auto) (0-5) /lpf Urine Bacteria (Auto) (Negative) Hepatitis C Ab Screen (Neg) 03/10/19 03/10/19 03/10/19 Range/Units 08:45 07:43 04:13 Sodium (136-145) mmol/L Potassium (3.5-5.1) mmol/L Chloride (98-107) mmol/L Carbon Dioxide (21-32) mmol/L Anion Gap (3-11) BUN (7-18) mg/dl Creatinine (0.6-1.2) mg/dl Est Cr Clr Drug Dosing ml/min Est GFR ( Amer) Est GFR (Non-Af Amer) BUN/Creatinine Ratio (10-20) Glucose (70-99) mg/dl POC Glucose 202 H (70-99) Calcium (8.5-10.1) mg/dl TSH (0.300-4.500) uIu/ml Urine Color Yellow Urine Appearance Clear (Clear) Urine pH 5.5 (4.5-7.5) Ur Specific [place] 1.012 (1.000-1.030) Urine Protein Trace H (Negative) Urine Glucose (UA) Negative (Negative) Urine Ketones Negative (Negative) Urine Blood Negative (Negative) Urine Nitrite Negative (Negative) Urine Bilirubin Negative (Negative) Urine Urobilinogen Negative (Negative) Ur Leukocyte Esterase Negative (Negative) Urine WBC (Auto) 1-5 (0-5) /hpf Urine RBC (Auto) 0-4 (0-4) /hpf U Hyaline Cast (Auto) 1-5 (0-5) /lpf U Epithel Cells (Auto) 10-20 H (0-5) /lpf Urine Bacteria (Auto) Negative (Negative) Hepatitis C Ab Screen Neg (Neg) 03/10/19 03/09/19 Range/Units 04:13 20:20 Sodium 138 (136-145) mmol/L Potassium 4.5 (3.5-5.1) mmol/L Chloride 104 (98-107) mmol/L Carbon Dioxide 28 (21-32) mmol/L Anion Gap 6.0 (3-11) BUN 36 H (7-18) mg/dl Creatinine 1.54 H (0.6-1.2) mg/dl Est Cr Clr Drug Dosing 33.3 ml/min Est GFR ( Amer) 38.1 Est GFR (Non-Af Amer) 32.9 BUN/Creatinine Ratio 23.2 H (10-20) Glucose 212 H (70-99) mg/dl POC Glucose 285 H (70-99) Calcium 9.5 (8.5-10.1) mg/dl TSH 0.255 L (0.300-4.500) uIu/ml Urine Color Urine Appearance (Clear) Urine pH (4.5-7.5) Ur Specific [place] (1.000-1.030) Urine Protein (Negative) Urine Glucose (UA) (Negative) Urine Ketones (Negative) Urine Blood (Negative) Urine Nitrite (Negative) Urine Bilirubin (Negative) Urine Urobilinogen (Negative) Ur Leukocyte Esterase (Negative) Urine WBC (Auto) (0-5) /hpf Urine RBC (Auto) (0-4) /hpf U Hyaline Cast (Auto) (0-5) /lpf U Epithel Cells (Auto) (0-5) /lpf Urine Bacteria (Auto) (Negative) Hepatitis C Ab Screen (Neg) ECG Additional Comments: NSR, TWI in inferior leads unchanged from previous (1) CHF (congestive heart failure) Heart failure chronicity: acute Heart failure type: unspecified Qualified Code(s): I50.9 - Heart failure, unspecified (2) COPD (chronic obstructive pulmonary disease) COPD type: unspecified COPD Qualified Code(s): J44.9 - Chronic obstructive pulmonary disease, unspecified (3) Hypertension Hypertension type: essential hypertension Qualified Code(s): I10 - Essential (primary) hypertension (4) Hypothyroid Hypothyroidism type: unspecified Qualified Code(s): E03.9 - Hypothyroidism, unspecified (5) CVA (cerebral vascular accident) CVA mechanism: unspecified Qualified Code(s): I63.9 - Cerebral infarction, unspecified
[2019-03-10] MEDS: ACETAMINOPHEN 500 MG TAB PO PRN (20:18)
[2019-03-10] MEDS: ZOLPIDEM TARTRATE 5 MG TAB PO SCH (21:19)
[2019-03-10] MEDS: FLUTICASONE/SALMETEROL (ADVAIR) 500/50 INH 14 PUFF INH SCH (21:20)
[2019-03-11] MEDS: LEVOTHYROXINE SODIUM 88 MCG TABLET PO SCH (04:43)
[2019-03-11] MEDS: ALBUT/IPRATROP 3MG/0.5MG NEB 3 ML VIAL NEB SCH ×4 (07:06→19:01)
[2019-03-11 07:34] LABS: BUN Creatinine Ratio 32.9 (10-20); Calcium 10.4 mg/dl (8.5-10.1); Creatinine Clr Calc Pharmacy 38.7 ml/min; Est GFR (African American) 45.9; Est GFR (Non-African American) 39.6; Magnesium 2.3 mg/dl (1.8-2.4); Potassium 4.8 mmol/L (3.5-5.1)
[2019-03-11] MEDS: LOSARTAN POTASSIUM 50 MG TAB PO SCH ×2 (08:51→20:59)
[2019-03-11] MEDS: FLUTICASONE/SALMETEROL (ADVAIR) 500/50 INH 14 PUFF INH SCH ×2 (08:51→20:56)
[2019-03-11] MEDS: EZETIMIBE 10 MG TABLET PO SCH (08:52)
[2019-03-11] MEDS: ASPIRIN 81 MG ECTAB PO SCH (08:52)
[2019-03-11] MEDS: ENOXAPARIN INJ 40 MG/0.4 ML SYR SQ SCH (08:52)
[2019-03-11] MEDS: INSULIN GLARGINE SOLOSTAR 100 UNITS/ML 3 ML PEN SC SCH (08:52)
[2019-03-11] MEDS: predniSONE 10 MG TABLET PO SCH ×2 (08:52→20:58)
[2019-03-11] MEDS: METOPROLOL TARTRATE 100 MG TAB PO SCH ×2 (08:52→20:58)
[2019-03-11] MEDS: AMLODIPINE BESYLATE 5 MG TAB PO SCH (08:52)
[2019-03-11] MEDS: INSULIN ASPART 100 UNITS/ML 3 ML PEN SC SCH ×4 (08:53→20:59)
[2019-03-11] MEDS ORDERED: FUROSEMIDE 20 MG TAB PO SCH (09:00)
[2019-03-11] MEDS ORDERED: FUROSEMIDE 20 MG in SYRINGE 0 ML IV ONE (10:15)
--- NOTE | 2019-03-11 14:55 | Hospitalist Progress Note ---
Date of Service March 11, 2019 Assessment & Plan (1) SOB (shortness of breath): Secondary to acute CHF as below. Improved back to baseline today CXR suggestive of pulmonary edema. Patient endorses increased edema -CHF plan as below (2) CHF (congestive heart failure): Patient with acute on chronic diastolic CHF presenting with progressive dyspnea and edema, pulm edema on CXR, BNP elevated at 9000. Patient states she is compliant with medications and diet, although, seems to be somewhat unclear on the medications she is taking. 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 Has no wheezing or evidence of COPD exacerbation. She did receiv IV SOlu Medrol in the ER x 1 dose but not continued -is on her home prednisone 10mg po bid for PMR -continue DuoNeb q 6 hours -Albuterol q 2 hours PRN -Supplemental O2 as needed -cont home Advair bid -is also supposed to be on Spiriva once daily as per outpt chart (4) Elevated troponin: Patient with mildly elevated troponin, some complaints of intermittent chest discomfort on admission. Trop ternded down after admission to 0.059 and is consistent with myocardial demand ischemia secondary to acute CHF and hypertensive urgency. She had a dobutamine stress echo last year which was negative for inducible ischemia. EKG unchanged from prior with TWI in inferior leads. 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 Improved with Nitro paste. Per [employer] she is also taking Hydralazine 50mg po TID and Losartan 50mg po BID (although Hydralazine not mentioned in last note from 11 November 2018). -Continue Metoprolol 100mg po BID -Continue Amlodipine and increased to 5mg po daily -continue home Losartan 50mg po BID -BPs still quite high today--> added hydralazine 50mg po tid and now improved -Closely monitor blood pressure -may benefit from visiting RN to help her make sure she is taking meds properly since she is unable to recall her meds here (7) Hypothyroid: Chronic -Continue Synthroid home dose -TSH mildly low here-could be contributing to hypercalcemia? (8) Diabetes: Blood sugars elevated here initially due to corticosteroids, now improved since off IV SOlu Medrol AIC=6.1 in July 2018. Patient reports adequate control at home. -Continue lantus 20u q daily and SSI (9) CVA (cerebral vascular accident): History of CVA. Presently neurologically intact -Continue ASA 81mg po daily -Continue Zetia, patient with allergy to Statins (10) Hypercalcemia: Ca++ levels mildly elevated here at 10.4. Review of chart shows calcium level high in 2013. Could be secondary to primary hyperparathyroidism, hyperthyroidism, renal disease, underlying malignancy?. -Vit D level actually low at 15 -check iPTH, LUCIANA level, phosphorus, Vit D 1-25 levels in AM -follow BMP (11) Vitamin D deficiency: Vit D level 15 but with hypercalcemia--> no supplementation for now (12) Polymyalgia rheumatica: Chronic. Stable. Patient takes Prednisone 10mg tablets, 1-2/day for symptoms -Prednisone 20mg po daily -Hydrocodone/Acetaminophen 1 tablet q 8 hours as needed for pain INSOMNIA - Ambien 5mg po qHS PRN insomnia Ppx - Lovenox Code - DNR/DNI Dispo - continued stay on Med Tele, possible dc to home tomorrow after more diuresis, would benefit from CHF clinic follow up-this has been arranged- Appreciate Ms. Glover's efforts PT/OT evals placed to assist in determination of suitability for home placement Subjective Pt feeling tired, not getting much rest here. Feels her legs are still swollen abut improved. Feels her SOB is about at baseline with some WEINSTEIN. No chest pain. Tele with NSR, rates 50s-70s. She now does report she usually takes hydralazine at home whereas she did not recall this upon admission. Review of Systems Review of Systems: All systems reviewed & are unremarkable except as noted in HPI & below Physical Exam Constitutional: WD/WN, vitals as above + obese Eyes: PERRL, conjunctivae normal, anicteric sclerae Neck: trachea midline, no thyromegaly Respiratory: normal respiratory effort, lungs clear to auscultation Cardiovascular: Rate/Rhythm: regular rate and regular rhythm Extremities: + edema (trace+ pitting edema left leg, no edema right leg) Gastrointestinal (Abdomen): normal bowel sounds, soft, nontender, no hepatosplenomegaly Musculoskeletal: Extremities: extremities normal to inspection; no cyanosis and no clubbing Skin: no rashes, warm and dry Neurologic: moves all extremities and awake; no focal motor deficits Psychiatric: A+Ox3, euthymic affect Results & Data Vital Signs (Past 12 Hours) Vital Signs Temp Pulse Pulse Resp BP Pulse Ox Pulse Ox 03/11/19 12:33 93 03/11/19 11:27 36.7 C 57 L 16 148/73 H 90 03/11/19 10:55 66 18 97 03/11/19 10:29 93 03/11/19 09:00 70 03/11/19 08:09 194/73 H 03/11/19 07:16 36.7 C 73 16 186/77 H 91 03/11/19 07:08 88 18 89 L 03/11/19 03:42 37 C 79 22 183/73 H 91 Pulse Ox 03/11/19 12:33 84 L 03/11/19 11:27 03/11/19 10:55 03/11/19 10:29 03/11/19 09:00 03/11/19 08:09 03/11/19 07:16 03/11/19 07:08 03/11/19 03:42 Laboratory Results 03/11/19 03/11/19 03/11/19 Range/Units 13:25 11:44 07:38 Sodium (136-145) mmol/L Potassium (3.5-5.1) mmol/L Chloride (98-107) mmol/L Carbon Dioxide (21-32) mmol/L Anion Gap (3-11) BUN (7-18) mg/dl Creatinine (0.6-1.2) mg/dl Est Cr Clr Drug Dosing ml/min Est GFR ( Amer) Est GFR (Non-Af Amer) BUN/Creatinine Ratio (10-20) Glucose (70-99) mg/dl POC Glucose 122 H 141 H (70-99) Calcium (8.5-10.1) mg/dl Magnesium (1.8-2.4) mg/dl 25-OH Vitamin D Total 15.6 L (30-100) ng/ml 03/11/19 03/10/19 03/10/19 Range/Units 06:24 20:39 16:19 Sodium 141 (136-145) mmol/L Potassium 4.8 (3.5-5.1) mmol/L Chloride 107 (98-107) mmol/L Carbon Dioxide 30 (21-32) mmol/L Anion Gap 4.0 (3-11) BUN 43 H (7-18) mg/dl Creatinine 1.32 H (0.6-1.2) mg/dl Est Cr Clr Drug Dosing 38.7 ml/min Est GFR ( Amer) 45.9 Est GFR (Non-Af Amer) 39.6 BUN/Creatinine Ratio 32.9 H (10-20) Glucose 137 H (70-99) mg/dl POC Glucose 164 H 162 H (70-99) Calcium 10.4 H (8.5-10.1) mg/dl Magnesium 2.3 (1.8-2.4) mg/dl 25-OH Vitamin D Total (30-100) ng/ml 03/10/19 Range/Units 16:05 Sodium 139 (136-145) mmol/L Potassium 4.2 (3.5-5.1) mmol/L Chloride 106 (98-107) mmol/L Carbon Dioxide 28 (21-32) mmol/L Anion Gap 5.0 (3-11) BUN 40 H (7-18) mg/dl Creatinine 1.51 H (0.6-1.2) mg/dl Est Cr Clr Drug Dosing 33.6 ml/min Est GFR ( Amer) 39.1 Est GFR (Non-Af Amer) 33.7 BUN/Creatinine Ratio 26.7 H (10-20) Glucose 178 H (70-99) mg/dl POC Glucose (70-99) Calcium 10.3 H (8.5-10.1) mg/dl Magnesium (1.8-2.4) mg/dl 25-OH Vitamin D Total (30-100) ng/ml (1) CHF (congestive heart failure) Heart failure chronicity: acute Heart failure type: unspecified Qualified Code(s): I50.9 - Heart failure, unspecified (2) COPD (chronic obstructive pulmonary disease) COPD type: unspecified COPD Qualified Code(s): J44.9 - Chronic obstructive pulmonary disease, unspecified (3) Hypertension Hypertension type: essential hypertension Qualified Code(s): I10 - Essential (primary) hypertension (4) Hypothyroid Hypothyroidism type: unspecified Qualified Code(s): E03.9 - Hypothyroidism, unspecified (5) CVA (cerebral vascular accident) CVA mechanism: unspecified Qualified Code(s): I63.9 - Cerebral infarction, unspecified
[2019-03-11] MEDS: ACETAMINOPHEN 500 MG TAB PO PRN (15:52)
[2019-03-11] MEDS: FUROSEMIDE 40 MG TAB PO SCH (17:52)
[2019-03-11] MEDS: HydrALAZINE TAB 50 MG TAB PO SCH (20:57)
[2019-03-11] MEDS: ZOLPIDEM TARTRATE 5 MG TAB PO SCH (22:37)
[2019-03-12] MEDS: LEVOTHYROXINE SODIUM 88 MCG TABLET PO SCH (05:33)
[2019-03-12] MEDS: ALBUT/IPRATROP 3MG/0.5MG NEB 3 ML VIAL NEB SCH ×2 (06:53→11:14)
[2019-03-12] MEDS: ENOXAPARIN INJ 40 MG/0.4 ML SYR SQ SCH (07:57)
[2019-03-12] MEDS: FLUTICASONE/SALMETEROL (ADVAIR) 500/50 INH 14 PUFF INH SCH (07:57)
[2019-03-12] MEDS: LOSARTAN POTASSIUM 50 MG TAB PO SCH (07:57)
[2019-03-12] MEDS: METOPROLOL TARTRATE 100 MG TAB PO SCH (07:57)
[2019-03-12] MEDS: HydrALAZINE TAB 50 MG TAB PO SCH ×2 (07:57→13:45)
[2019-03-12] MEDS: ASPIRIN 81 MG ECTAB PO SCH (07:57)
[2019-03-12] MEDS: EZETIMIBE 10 MG TABLET PO SCH (07:57)
[2019-03-12] MEDS: FUROSEMIDE 40 MG TAB PO SCH (07:57)
[2019-03-12] MEDS: predniSONE 10 MG TABLET PO SCH (07:57)
[2019-03-12] MEDS: INSULIN GLARGINE SOLOSTAR 100 UNITS/ML 3 ML PEN SC SCH (07:58)
[2019-03-12] MEDS: AMLODIPINE BESYLATE 5 MG TAB PO SCH (07:58)
[2019-03-12] MEDS: INSULIN ASPART 100 UNITS/ML 3 ML PEN SC SCH ×2 (07:58→12:15)
[2019-03-12 08:12] LABS: BUN Creatinine Ratio 31.8 (10-20); Calcium 10.6 mg/dl (8.5-10.1); Creatinine Clr Calc Pharmacy 36.7 ml/min; Est GFR (African American) 43.2; Est GFR (Non-African American) 37.2; Magnesium 2.3 mg/dl (1.8-2.4); Phosphorus 3.5 mg/dl (2.5-4.9); Potassium 4.8 mmol/L (3.5-5.1)
--- NOTE | 2019-03-12 13:07 | Discharge Summary ---
Date of Service March 12, 2019 Admission HPI Per Admitting Provider Miya Mcgarry is a pleasant 73yo C female with multiple medical problems to include O2 dependent COPD on 2L NC, chronic diastolic CHF, CKD presenting with shortness of breath progressive over the last week with acute worsening over the last 1-2 days. Patient with moist cough, unable to expectorate sputum, worsening bilateral LE edema, L > R. She has chronic orthopnea and frequently sleeps upright. Reports weighing appx 189# at her PCP 6 months ago which is what she weighs presently. She denies fevers/chills/sweats. No history of blood clots. No wheezing. She has had a runny nose lately. Also with some intermittent dull substernal chest pain. Upon arrival to the ER patient was markedly hypertensive at 214/70, RR of 30 saturating 89% on room air. 0.5 inch of nitro paste was placed with improvement in blood pressure. Patient presently without complaint. States that she feels better. ER Course: Albuterol 12mL, Lasix 40mg IV, Solumedrol 125mg, Nitro paste 0.5 in Principal Diagnosis Acute on chronic diastolic CHF Hypertensive urgency Discharge Exam Constitutional WD/WN, vitals as above + obese Eyes PERRL, conjunctivae normal, anicteric sclerae Neck trachea midline, no thyromegaly Respiratory normal respiratory effort, lungs clear to auscultation Cardiovascular Rate/Rhythm: regular rate and regular rhythm Extremities: + edema (trace+ pitting edema left leg, no edema right leg) Gastrointestinal (Abdomen) normal bowel sounds, soft, nontender, no hepatosplenomegaly Musculoskeletal Extremities: extremities normal to inspection; no cyanosis and no clubbing Skin no rashes, warm and dry Neurologic moves all extremities and awake; no focal motor deficits Psychiatric A+Ox3, euthymic affect Discharge Data Allergies Allergy/AdvReac Type Severity Reaction Status Date / Time LUCIANA Inhibitors AdvReac Intermediate COUGH Verified 03/09/19 11:01 Wznyfkd-Qkg-Enc Reductase AdvReac Intermediate MYALGIA Verified 03/09/19 11:01 Inhibitor doxycycline AdvReac Unknown Diarrhea Verified 03/09/19 11:01 Consultations None Procedures Performed Echocardiogram Ordered Studies CXR Hospital Course (1) SOB (shortness of breath): Secondary to acute CHF as below. Improved back to baseline today CXR suggestive of pulmonary edema. Patient endorses increased edema on admission which is now resolved -CHF plan as below (2) CHF (congestive heart failure): Patient with acute on chronic diastolic CHF presenting with progressive dyspnea and edema, pulm edema on CXR, BNP elevated at 9000. Patient states she is compliant with medications and diet, although, seems to be somewhat unclear on the medications she is taking. 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 Has no wheezing or evidence of COPD exacerbation. She did receiv IV SOlu Medrol in the ER x 1 dose but not continued -is on her home prednisone 10mg po bid for PMR -continue DuoNeb q 6 hours -Albuterol q 2 hours PRN -Supplemental O2 as needed -cont home Advair bid -is also supposed to be on Spiriva once daily as per outpt chart BUT she has not been taking it due to prohibiting cost factor (4) Elevated troponin: Patient with mildly elevated troponin, some complaints of intermittent chest discomfort on admission. Trop ternded down after admission to 0.059 and is consistent with myocardial demand ischemia secondary to acute CHF and hypertensive urgency. She had a dobutamine stress echo last year which was negative for inducible ischemia. EKG unchanged from prior with TWI in inferior leads. 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 Improved with Nitro paste. Per [employer] she is also taking Hydralazine 50mg po TID and Losartan 50mg po BID (although Hydralazine not mentioned in last note from 11 November 2018). -Continue Metoprolol 100mg po BID -Continue Amlodipine and increased to 5mg po daily -continue home Losartan 50mg po BID -restarted hydralazine 50mg po tid and now improved -Closely monitor blood pressure -may benefit from visiting RN to help her make sure she is taking meds properly since she is unable to recall her meds here (7) Hypothyroid: Chronic -Continue Synthroid home dose -TSH mildly low here-follow as outpt in 4-6 weeks (8) Diabetes: Blood sugars elevated here initially due to corticosteroids, now improved since off IV SOlu Medrol AIC=6.1 in July 2018. Patient reports adequate control at home. -Continue lantus 20u q daily after discharge (9) CVA (cerebral vascular accident): History of CVA. Presently neurologically intact -Continue ASA 81mg po daily -Continue Zetia, patient with allergy to Statins (10) Hypercalcemia: Ca++ levels mildly elevated here at 10.4-10.6. Review of chart shows calcium level high in 2013. Intact PTH here severely elevated at 216 which indicates primary hyperparathyroidism most likely -Vit D level actually low at 15 -LUCIANA level, phosphorus, Vit D 1-25 levels all normal -follow Calcium levels as outpt -Needs further evaluation by PCP and possible SETAMIBI scan (11) Vitamin D deficiency: Vit D level 15 but with hypercalcemia--> no supplementation for now (12) Polymyalgia rheumatica: Chronic. Stable. Patient takes Prednisone 10mg tablets, 1-2/day for symptoms -continue Hydrocodone/Acetaminophen 1 tablet q 8 hours as needed for pain INSOMNIA - Ambien 5mg po qHS PRN insomnia Ppx - Lovenox SQ was given Code - DNR/DNI Dispo - Stable for discahrge to home Arranged for CHF clinic follow up-Appreciate HARIS Glover's efforts PT/OT evals placed to assist in determination of suitability for home placement- stable for going home-independent (13) Hyperparathyroidism: Total Time Total Time Spent Total Time Spent (In Minutes): >30 min Total Time Includes: Examination of the Patient, Discharge Planning and Medication Reconciliation Discharge Plan Discharge Items Patient Disposition: Home - Home Health Services Reason For Visit: SOB Discharge Diagnosis: Acute on chronic diastolic congestive heart failure (CHF) Condition: Good Discharge Goals: Diagnostic testing, Improve disease control, Learn about illness and Therapeutic intervention Activity: Resume your previous activity Lifting: Gradually increase as tolerated Bathing: No limitations Exercise/Sports: As tolerated Non-emergency contact: Primary Care Provider and Invisible Braces Orthodontist Call non-emergency contact if: you have any medication questions and your symptoms worsen Follow-up/Referrals: Shubham Frausto III, MD [Primary Care Provider] - 03/17/19 1:30 pm (Please, follow up at Dr. Frausto's office with his family services assistant, Mackenzie Metzger PA-C on FridayMarch 17 at 1:30 pm. *If you need to change this appointment, call the office at [phone].) Yaritza Glover PA-C [Physician Shoemaker Apprentice] - 03/19/19 12:00 pm (Please, follow up at [facility] Office / CHF Clinic on FridayMarch 19 at 12:00 pm. *The office is located in [address] of [employer] [place] [employer] [facility]. This is the big building located next to [facility]. If you need to change this appointment, call the office at [phone].) Diet: Low Sodium (2gm) Fluids: 1800ml (7 cups) Addtl Provider Instructions: You were admitted with shortness of breath and found to have an overload of fluid from congestive heart failure. You were given Lasix through the IV and then transitioned to oral Lasix at a higher dose than previous. You should take 40 mg twice daily. Please follow-up with the cardiology congestive heart failure clinic with the HARIS worthy as scheduled. Please follow-up with your primary care physician as scheduled. Your blood pressure medicine named amlodipine was also increased to 5 mg daily. You should keep your oxygen on at all times at 2 L nasal cannula. Call your Primary Care doctor if any of the following symptoms or problems start or get worse: * Shortness of breath or difficulty breathing * Wake up at night short of breath * Chest pain * Cough * Swelling of your hands, feet, or legs * More fatigued or tired with your normal activity * Palpitations - sudden fast heart beats WEIGHT * Weigh yourself every morning after using the bathroom. * Use the same scale. * Wear the same amount of clothing. * Write your weight down on a chart. * Call your Primary Care doctor if you gain more than 2-3 pounds in 1-2 days. MEDICATIONS * Use this discharge instruction sheet for medication instructions. * Take your medications at the time your doctor ordered. * Do not skip a dose of your medicines. * If you miss a dose of medicine, take it as soon as possible, but DO NOT DOUBLE A DOSE. * Read your medicine information when you get home. * Know all of the side effects of your medicine. If in doubt, ask your pharmacist * Call your Primary Care doctor's office if you have any side effects. * Be sure all of your doctors know what medicine and herbs you take (including cold, flu, and herbal medicine). Take the following with you to your follow-up doctor appointments: * Weight Chart * Medication List * List of questions Do not drink excessive alcohol, beer or wine. Prescriptions: New amlodipine [Norvasc] 5 mg Tablet 5 mg PO QAM 30 Days Qty: 30 RF: 0 furosemide 40 mg Tablet 40 mg PO [id number] Qty: 60 RF: 0 Continued metoprolol tartrate [Lopressor] 100 mg Tablet 100 mg PO BID RF: 0 aspirin 81 mg Tablet,Delayed Release (Dr/Ec) 81 mg PO QAM RF: 0 levothyroxine [Synthroid] 88 mcg Tablet 88 mcg PO QAM RF: 0 zolpidem [Ambien] 5 mg Tablet 5 mg PO HS RF: 0 ezetimibe [Zetia] 10 mg Tablet 10 mg PO QAM RF: 0 Eye [employer] 550-250-2.5-0.5 [id number]-mg Capsule 1 tab PO QAM RF: 0 Lantus U-100 Insulin 100 unit/mL Solution 20 unit SUBCUT DAILY PRN (Reason: diabetes) RF: 0 acetaminophen 500 mg Tablet 1 tab PO DAILY PRN (Reason: Pain) RF: 0 fluticasone propion-salmeterol [Advair Diskus] 500-50 mcg/dose Blister With Device 1 inh INHALATION BID RF: 0 albuterol sulfate 2.5 mg/0.5 mL Solution For Nebulization 2.5 mg INHALATION QID PRN (Reason: Shortness Of Breath) RF: 0 prednisone 10 mg tablet 10 mg PO BID RF: 0 hydrocodone-acetaminophen 5-325 mg Tablet 1 tab PO UD PRN (Reason: Pain) RF: 0 losartan 50 mg tablet 50 mg PO BID RF: 0 hydralazine 50 mg tablet 50 mg PO TID RF: 0 Discontinued furosemide [Lasix] 40 mg Tablet 20 mg PO QAM RF: 0 amlodipine [Norvasc] 2.5 mg Tablet 2.5 mg PO QAM RF: 0 Stand-Alone Forms: [facility] Discharge Orders: Discharge Order (Routine); Ordered 03/12/19 Ordered By: Florecita Reddy Admission Data Admit Date/Time: 03/09/19 13:03 Attending Provider: Florecita Reddy Admit Provider: Stacey Kerr Primary Care Provider: Shubham Frausto III Service: Telemetry Other Interventions: Discharge Summary Assessment (RN) Last Done: 03/12/19 13:24 DC Date/Time DO NOT enter until pt leaves facility: 03/12/19 14:11
[2019-03-16 17:49] LABS: Angiotensin Converting Enzyme 25 U/L (9-67); Vitamin D3,1,25 29 pg/mL
== END 2019-03-12 14:11 | disposition home health service (06) | DRG 291 ==
LOC: ED 09:25 → 2W 13:03 → SUATTDRO 13:03 → 2W 13:36
DX: M35.3 Polymyalgia rheumatica; G47.00 Insomnia, unspecified; I13.0 Hypertensive heart and chronic kidney disease with heart failure and stage 1 through stage 4 chronic kidney disease, or unspecified chronic kidney disease; Z79.899 Other long term (current) drug therapy; N17.9 Acute kidney failure, unspecified; E03.9 Hypothyroidism, unspecified; I16.0 Hypertensive urgency; I50.33 Acute on chronic diastolic (congestive) heart failure; E21.3 Hyperparathyroidism, unspecified; Z66 Do not resuscitate; J44.9 Chronic obstructive pulmonary disease, unspecified; Z79.4 Long term (current) use of insulin; Z99.81 Dependence on supplemental oxygen; N18.4 Chronic kidney disease, stage 4 (severe); Z79.82 Long term (current) use of aspirin; E11.22 Type 2 diabetes mellitus with diabetic chronic kidney disease; Z86.73 Personal history of transient ischemic attack (TIA), and cerebral infarction without residual deficits; E55.9 Vitamin D deficiency, unspecified

== ENCOUNTER 2019-06-16 15:13 | Inpatient (IN) ==
[2019-06-16 15:48] LABS: Basophils # (auto) 0.01 K/uL (0-0.2); Basophils % (auto) 0.1 %; Eosinophils # (auto) 0.14 K/uL (0-0.5); Eosinophils % (auto) 1.1 %; Hematocrit (blood only) 39.6 % (37-47); Hemoglobin 12.8 g/dL (12.0-16.0); Immature Granulocytes # (auto) 0.14 K/uL (0.00-0.02); Immature Granulocytes % (auto) 1.1 %; Lymphocytes # (auto) 1.51 K/uL (1.2-3.4); Lymphocytes % (auto) 11.8 %; Mean Corpuscular Hemoglobin 29.3 pg (25-34); Mean Corpuscular Hgb Conc 32.3 g/dL (32-36); Mean Corpuscular Volume 90.6 fL (80-100); Mean Platelet Volume 9.9 fL (7.4-10.4); Monocytes # (auto) 0.87 K/uL (0.11-0.59); Monocytes % (auto) 6.8 %; Neutrophils # (auto) 10.14 K/uL (1.4-6.5); Neutrophils % (auto) 79.1 %; Platelet Count 304 K/uL (130-400); RDW Coefficient of Variation 14.2 % (11.5-14.5); RDW Standard Deviation 47.6 fL (36.4-46.3); Red Blood Count 4.37 M/uL (4.2-5.4); White Blood Count 12.81 K/uL (4.8-10.8)
[2019-06-16 16:02] LABS: Partial Thromboplastin Ratio 0.8; Partial Thromboplastin Time 22.2 Seconds (21.0-31.0); Prothrombin Time 10.5 Seconds (9.0-12.0)
[2019-06-16 16:04] LABS: Alanine Aminotransferase 30 U/L (12-78); Albumin Level 2.7 gm/dl (3.4-5.0); Aspartate Aminotransferase 24 U/L (15-37); BUN Creatinine Ratio 33.3 (10-20); Blood Urea Nitrogen 52 mg/dl (7-18); Calcium 9.2 mg/dl (8.5-10.1); Carbon Dioxide 26 mmol/L (21-32); Chloride 106 mmol/L (98-107); Est GFR (African American) 37.3; Est GFR (Non-African American) 32.1; Glucose 118 mg/dl (70-99); Magnesium 2.4 mg/dl (1.8-2.4); Potassium 4.1 mmol/L (3.5-5.1); Sodium 140 mmol/L (136-145)
[2019-06-16 16:19] LABS: Albumin Globulin Ratio 0.8 (0.9-2); Alkaline Phosphatase 106 U/L (45-117); Bilirubin,Total 0.3 mg/dl (0.2-1); Globulin 3.3 gm/dl (2.5-4.0); NT Pro B Type Natriuretic Pept 6827 pg/ml (0-900); Troponin I 0.059 ng/ml (0-0.045)
--- NOTE | 2019-06-16 16:31 | XRay Report ---
XR chest 1V portable HISTORY: 73 years-old Female Shortness of Breath and Weight Gain acute shortness of breath COMPARISON: Chest radiograph 03/09/2019 TECHNIQUE: Portable AP view of the chest FINDINGS: Unchanged cardiomegaly. Unchanged calcified granuloma of the left upper lung. Calcified plaque of the thoracic aortic arch. Pulmonary vascular congestion with interstitial coarsening. Unchanged mild kelli pical pleural-parenchymal scarring. No pneumothorax. Trace pleural effusions. Degenerative changes of the shoulders and spine. IMPRESSION: 1. Cardiomegaly with mild interstitial pulmonary edema. 2. Trace pleural effusions. The above report was generated using voice recognition software. It may contain grammatical, syntax o r spelling errors. Electronically signed by: Ramesh Jimenez M.D. 06/16/2019 4:29 PM
[2019-06-16] MEDS ORDERED: FUROSEMIDE 40 MG/4 ML VIAL IV STA (16:47)
[2019-06-16] MEDS ORDERED: GLUCAGON FOR INJ 1 MG VIAL SQ PRN (19:30)
[2019-06-16] MEDS ORDERED: GLUCOSE 40% GEL 15 GM TUBE PO PRN (19:30)
[2019-06-16] MEDS ORDERED: HydrALAZINE HCL 20 MG/ML VIAL IV PRN (19:30)
[2019-06-16] MEDS ORDERED: GLUCOSE 10 TABS/TUBE PO PRN (19:30)
[2019-06-16] MEDS ORDERED: CARBOHYDRATES FOR HYPOGLYCEMIA PO PRN (19:30)
[2019-06-16] MEDS ORDERED: DEXTROSE 50% 50 ML SYRINGE IV PRN (19:30)
--- NOTE | 2019-06-16 20:30 | History & Physical Report ---
Date of Service June 16, 2019 Assessment & Plan (1) Acute on chronic diastolic (congestive) heart failure: Unclear cause of her exacerbation. Echo in 05/2019 showed EF of 55-60%. - Lasix 40mg IV BID - Monitor I&Os, weights - CHF consult - LLE doppler as her left leg swelling is greater than her right (2) COPD (chronic obstructive pulmonary disease): No wheezing on exam. Patient finished azithromycin and prednisone taper last few weeks for an exacerbation. - Lower concern at present for exacerbation playing a role; however, probably have low threshold to start prednisone - Continue home inhalers - DuoNebs PRN (3) CKD (chronic kidney disease): Baseline Cr ~1.3-1.5, eGFR ~35. Cr just above normal on admission at 1.57; possibly cardiorenal. - Monitor Cr - Renally-dose medications (4) Hypertension: BP is 125/90 on admission. - Continue home medications (5) Diabetes: A1c was 7.3% in 03/2019. - Lowered home Lantus dose to 10 units daily from home 20 units - Sliding scale insulin (6) Hypothyroid: TSH was 1.6 in 03/2019. No signs/symptoms of hypo-/hyperthyroidism. - Continue home Synthroid 88 mcg (7) Polymyalgia rheumatica: Per prior PCP note, she is on prednisone 5-10mg PO daily for her PMR; however, she denied prednisone to me. Unclear whether she just meant a steroid burst for COPD or off steroids all together. - Assess in morning and restart if needed (8) History of CVA (cerebrovascular accident): - Continue ASA and ezetimibe (9) DVT prophylaxis: SCDs - Low DVT risk per admission calculator History of Present Illness Primary Care Provider: Shubham Frausto MD 73yo F w/ hx of CHF who presents with CHF exacerbation. She reports that approx. 1 week ago, she noted that her left leg started to swell a bit more than usual. Usually it is similar in size to her right leg. However, when she starts to develop volume overload, she notes the left leg often gets larger than the right. She reports that she has been taking her Lasix 40mg PO BID as prescribed, but this did not seem to help her swelling. About 2 days ago, she reports that she started to feel shortness of breath particularly with exertion. She was concerned about increasing swelling and weight gain and decided to come to the ED for evaluation. She notes that she was being treated for a COPD exacerbation up to a few weeks ago. She was on prednisone and azithromycin until a few weeks ago per the patient. Allergies Allergy/AdvReac Type Severity Reaction Status Date / Time LUCIANA Inhibitors AdvReac Intermediate COUGH Verified 06/16/19 16:59 Hmmtnor-Nkf-Sbo Reductase AdvReac Intermediate MYALGIA Verified 06/16/19 16:59 Inhibitor doxycycline AdvReac Unknown Diarrhea Verified 06/16/19 16:59 clopidogrel AdvReac easy Verified 06/16/19 16:59 bruising, itching, chest and abd pain Home Medications Home Medications Medication Instructions Recorded Confirmed Type Lantus U-100 Insulin 20 unit SUBCUT DAILY PRN 08/06/18 06/16/19 History levothyroxine [Synthroid] 88 mcg PO QAM 08/06/18 06/16/19 History metoprolol tartrate [Lopressor] 100 mg PO BID 08/06/18 06/16/19 History hydralazine 50 mg PO TID 03/11/19 06/16/19 History losartan 50 mg PO BID 03/11/19 06/16/19 History furosemide 40 mg PO BID17 #60 tab 03/12/19 06/16/19 Rx fluticasone 500 mcg-salmeterol 50 1 inh INHALATION BID #60 ea 03/25/19 06/16/19 Rx mcg/dose blistr powdr for inhalation albuterol sulfate concentrate 2.5 2.5 mg INHALATION QID PRN #50 ea 04/05/19 06/16/19 Rx mg/0.5 mL solution for nebulization hydrocodone 5 mg-acetaminophen 325 1 tab PO Q8H PRN #40 tab 05/17/19 06/16/19 Rx mg tablet zolpidem 5 mg tablet 5 mg PO HS PRN #30 tab 06/15/19 06/16/19 Rx amlodipine 5 mg PO QAM 06/16/19 06/16/19 History aspirin [Adult Aspirin Regimen] 81 mg PO QAM 06/16/19 06/16/19 History ezetimibe [Zetia] 10 mg PO QAM 06/16/19 06/16/19 History Past Med/Surg History Medical History SOB (shortness of breath) (Acute) exertional CKD (chronic kidney disease) COPD (chronic obstructive pulmonary disease) CVA (cerebral vascular accident) 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 This was not seen on 04/[address] Pt started on Plavix. Carotid artery stenosis > 70% stenosis in VAN 50-69% stenosis in LICA >50% stenosis in both ECAs *SURGEON AWARE Congestive heart failure Chronic diastolic, EF 65-70% Degenerative disc disease cervical Diabetes on insulin GERD (gastroesophageal reflux disease) Hx of chest pain Hypertension Hypothyroid Surgical History H/O rotator cuff surgery (Acute) left shoulder History of appendectomy History of cataract surgery History of colonoscopy History of hysterectomy History of tooth extraction Hx of cholecystectomy Family History Mother Family history of diabetes mellitus Brother Family history of diabetes mellitus Social History Preferred Language: Dominican Communication Ability: Effective Visual Impairment: No Limitations Fiscal Officer Required: No Beliefs That Will Affect Care: None marital status: Current Living Situation: Spouse and Family Other Information That Helps Us Care for You: No Feels Safe at Home: Yes Safety Concerns: Feels Safe At This Time Smoking Status: Former smoker Second Hand Exposure: No ; Hx Alcohol Use: No Hx Substance Use: No Review of Systems Constitutional: no fever, no chills and no sweats Eyes: no diplopia Ear, Nose, Mouth, Throat: no ear trauma, no nasal discharge and no dental pain Respiratory: + dyspnea and + dyspnea on exertion; no cough and no chest congestion Cardiovascular: no chest pain, no dyspnea on exertion, no palpitations and no syncope Gastrointestinal: no abdominal pain, no belching, no constipation, no diarrhea/loose stools, no blood in stools and no melena Musculoskeletal: no back pain, no joint pain and no muscle weakness Integumentary: no rash, no skin ulcer and no erythema Neurologic: no generalized weakness, no loss of sensation, no numbness and no paresthesia Psychiatric: no depression and no anxiety Endocrine: no fatigue, no polydipsia and no polyphagia Physical Exam Constitutional: WD/WN, vitals as above Eyes: EOM intact bilaterally; no conjunctival abnormality ENMT: external ear and nose normal, oropharynx normal Neck: trachea midline, no thyromegaly normal visual inspection Respiratory: normal respiratory effort, lungs clear to auscultation no respiratory distress Cardiovascular: Rate/Rhythm: regular rhythm and + tachycardic Heart Sounds: normal S1 and normal S2 Extremities: + edema (L>R legs) Gastrointestinal (Abdomen): Inspection/Auscultation: abdomen normal to inspection; abdomen not distended Musculoskeletal: no cyanosis or clubbing, extremities motor strength 5/5 Skin: no rashes, warm and dry Neurologic: moves all extremities and awake Psychiatric: Orientation: alert, oriented to person and cooperative Results & Data Vital Signs (Past 12 Hours) Vital Signs Temp Pulse Pulse Resp BP BP Pulse Ox 06/16/19 19:46 107 H 06/16/19 18:50 36.4 C L 81 16 123/87 93 06/16/19 17:15 96 H 30 H 170/92 H 98 06/16/19 15:45 137/47 L 98 06/16/19 15:42 101 H 26 H 137/47 L 99 06/16/19 15:30 90 06/16/19 15:15 104 H 28 H 91/64 L 93 Code Status & VTE Plan VTE Prophylaxis Plan VTE Prophylaxis will be ordered: Yes PG Care Time/CCT Total # of Minutes Spent Total Time Spent with Patient: Total time spent is greater than 50% in coordination of care (as documented) at patient's floor/unit and/or counseling patient:
--- NOTE | 2019-06-16 21:06 | Ultrasound Report ---
LEFT LOWER EXTREMITY VENOUS DOPPLER CLINICAL HISTORY: Left leg swelling COMPARISON STUDY: Left lower extremity venous Doppler October 14, 2015. TECHNIQUE: Sonography of the deep venous system of the left lower extremity was performed. Compressi on and augmentation were evaluated. FINDINGS: The left common femoral, superficial femoral and popliteal veins were compressible. Augmen tation was normal. Flow was shown within the deep calf vessels. Left lower extremity edema was noted. IMPRESSION: No evidence of deep venous thrombus within the left lower extremity. Electronically signed by: Hermes Zaragoza M.D. 06/16/2019 9:05 PM
[2019-06-16] MEDS: METOPROLOL TARTRATE 100 MG TAB PO SCH (21:10)
[2019-06-16] MEDS: LOSARTAN POTASSIUM 50 MG TAB PO SCH (21:10)
[2019-06-16] MEDS: HydrALAZINE TAB 50 MG TAB PO SCH (21:11)
[2019-06-16] MEDS: FLUTICASONE/SALMETEROL (ADVAIR) 500/50 INH 14 PUFF INH SCH (21:12)
[2019-06-16] MEDS: INSULIN ASPART 100 UNITS/ML 3 ML PEN SC SCH (21:16)
[2019-06-16] MEDS: ACETAMINOPHEN 325 MG TAB PO PRN (21:17)
--- NOTE | 2019-06-16 21:27 | Emergency Department Note ---
Entered by Hiwot Greenberg acting as a scribe for Jean Marie Figueroa History of Present Illness General Chief complaint: Shortness of Breath/Dyspnea Stated complaint: SOB Time Seen by Provider: 06/16/19 15:33 Source: patient and family History of Present Illness Onset (ago): week(s) 1 Location: chest Pain Consistency: + other (worsening) Maximum Pain Intensity: 6 Quality: + other (shortness of breath) Associated symptoms: + other (leg swelling, weight gain); no cough The patient is a 73 year old female who presents to the Emergency Room with complaints of worsening shortness of breath starting a week ago. The patient states that for the past week she has had increased leg swelling and difficulty breathing. She states that she has been taking all her medications including, 80 mg a day of Lasix, but has still put on 10 lbs. She notes that she wears O2 at all times at home, but it is not helping. The patient denies recent mediation changes and cough. She notes that she is a former smoker and has a history of atrial fibrillation. Her grandson notes that they typically give her Prednisone and send her home, but it keeps happening. Home Medications Home Medications Medication Instructions Recorded Confirmed Type Lantus U-100 Insulin 20 unit SUBCUT DAILY PRN 08/06/18 06/16/19 History levothyroxine [Synthroid] 88 mcg PO QAM 08/06/18 06/16/19 History metoprolol tartrate [Lopressor] 100 mg PO BID 08/06/18 06/16/19 History hydralazine 50 mg PO TID 03/11/19 06/16/19 History losartan 50 mg PO BID 03/11/19 06/16/19 History furosemide 40 mg PO BID17 #60 tab 03/12/19 06/16/19 Rx fluticasone 500 mcg-salmeterol 50 1 inh INHALATION BID #60 ea 03/25/19 06/16/19 Rx mcg/dose blistr powdr for inhalation albuterol sulfate concentrate 2.5 2.5 mg INHALATION QID PRN #50 ea 04/05/19 06/16/19 Rx mg/0.5 mL solution for nebulization hydrocodone 5 mg-acetaminophen 325 1 tab PO Q8H PRN #40 tab 05/17/19 06/16/19 Rx mg tablet zolpidem 5 mg tablet 5 mg PO HS PRN #30 tab 06/15/19 06/16/19 Rx amlodipine 5 mg PO QAM 06/16/19 06/16/19 History aspirin [Adult Aspirin Regimen] 81 mg PO QAM 06/16/19 06/16/19 History ezetimibe [Zetia] 10 mg PO QAM 06/16/19 06/16/19 History Allergies Allergy/AdvReac Type Severity Reaction Status Date / Time LUCIANA Inhibitors AdvReac Intermediate COUGH Verified 06/16/19 16:59 Anvyqia-Gye-Atr Reductase AdvReac Intermediate MYALGIA Verified 06/16/19 16:59 Inhibitor doxycycline AdvReac Unknown Diarrhea Verified 06/16/19 16:59 clopidogrel AdvReac easy Verified 06/16/19 16:59 bruising, itching, chest and abd pain Past Med/Surg History Medical History Hyperparathyroidism Hypercalcemia Polymyalgia rheumatica GERD (gastroesophageal reflux disease) Diabetes Hypothyroid Hypertension CKD (chronic kidney disease) COPD (chronic obstructive pulmonary disease) (Acute) CHF (congestive heart failure) (Acute) SOB (shortness of breath) (Acute) exertional CKD (chronic kidney disease) COPD (chronic obstructive pulmonary disease) CVA (cerebral vascular accident) 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 This was not seen on 04/[address] Pt started on Plavix. Carotid artery stenosis > 70% stenosis in VAN 50-69% stenosis in LICA >50% stenosis in both ECAs *SURGEON AWARE Congestive heart failure Chronic diastolic, EF 65-70% Degenerative disc disease cervical Diabetes on insulin GERD (gastroesophageal reflux disease) Hx of chest pain Hypertension Hypothyroid Surgical History H/O rotator cuff surgery (Acute) left shoulder History of appendectomy History of cataract surgery History of colonoscopy History of hysterectomy History of tooth extraction Hx of cholecystectomy Family History Mother Family history of diabetes mellitus Brother Family history of diabetes mellitus Social History Preferred Language: Romansh Communication Ability: Effective Visual Impairment: No Limitations Public Service Representative Required: No Beliefs That Will Affect Care: None marital status: Current Living Situation: Spouse and Family Other Information That Helps Us Care for You: No Feels Safe at Home: Yes Safety Concerns: Feels Safe At This Time Smoking Status: Former smoker Second Hand Exposure: No ; Hx Alcohol Use: No Hx Substance Use: No Review of Systems See HPI for pertinent positives & negatives. and A total of 10 systems reviewed and were otherwise negative Physical Exam Vital Signs Vital Signs - 24 hr 06/16/19 15:15 06/16/19 15:30 06/16/19 15:42 Temperature Source Oral Sepsis Recent Fever Within 48 Hours No Sepsis Action Taken by Nursing No Action Required Oxygen Flow Rate - Titration 2 Pulse Oximetry Post Tiitration 96 Pulse Rate 104 H Pulse Rate [Right Finger] 101 H Respiratory Rate 28 H 26 H Respiratory Effort / Characteristics Short of Breath Respiratory Depth Shallow Respiratory Pattern Rapid/Shallow Blood Pressure 91/64 L Blood Pressure [Left Arm] 137/47 L Blood Pressure Mean 73 Blood Pressure Mean [Left Arm] 77 Pulse Oximetry 93 90 99 Oxygen Delivery Method Room Air Room Air Oxygen Flow Rate 06/16/19 15:45 06/16/19 17:15 Temperature Source Sepsis Recent Fever Within 48 Hours Sepsis Action Taken by Nursing Oxygen Flow Rate - Titration Pulse Oximetry Post Tiitration Pulse Rate Pulse Rate [Right Finger] 96 H Respiratory Rate 30 H Respiratory Effort / Characteristics Respiratory Depth Respiratory Pattern Blood Pressure 137/47 L Blood Pressure [Left Arm] 170/92 H Blood Pressure Mean 77 Blood Pressure Mean [Left Arm] 118 Pulse Oximetry 98 98 Oxygen Delivery Method Room Air Nasal Cannula Oxygen Flow Rate 2 GENERAL: She is oriented to person, place, and time. She appears well-developed and well-nourished. She does not appear distressed. HENT: Exam performed. - Head: Normocephalic and atraumatic. - Right Ear: External ear normal. No mastoid tenderness. - Left Ear: External ear normal. No mastoid tenderness. - Mouth/Throat: The oropharynx is clear and moist. No trismus in the jaw. No dental abscesses or uvula swelling. No oropharyngeal exudate or tonsillar abscesses. EYES: Conjunctivae and EOM are normal. Pupils are equal, round, and reactive to light. Right eye exhibits no discharge. Left eye exhibits no discharge. No scleral icterus. NECK: Normal range of motion. Neck supple. No JVD present. No spinous process tenderness present. No carotid bruit present. No rigidity. No tracheal deviation and normal range of motion present. No Brudzinski's sign and no Kernig's sign n oted. CV: Normal rate, irregular rhythm, normal heart sounds and intact distal pulses. There is no peripheral edema. Palpable radial pulses bue. PULM/CHEST: Effort normal. No respiratory distress. No stridor. She has no wheezes. She has rales at bilateral bases. Chest Wall: She exhibits no tenderness. ABD: The abdomen is soft. Bowel sounds are normal. She has no distension. No mass is present. There is no tenderness. There is no rebound, no guarding, no Dodge's sign and no tenderness at McBurney's point. Rovsig negative MUSC/SKEL: Normal range of motion. 2+ pitting edema to bilateral lower extremities. There is no tenderness or deformity. LYMPH: No cervical adenopathy. NEURO: She is alert and oriented to person, place, and time. She has normal strength. No cranial nerve deficit or sensory deficit. Coordination and gait normal. GCS eye subscore is 4. GCS verbal subscore is 5. GCS motor subscore is 6. cerbellar tests wnl. SKIN: Skin is warm and dry. She is not diaphoretic. PSYCH: She has a normal mood and affect. Her behavior is normal. Judgment and thought content normal. Course 1535: Past medical records reviewed. The patient was evaluated in room B9. A complete history and physical exam was performed. 1648: Vital signs stable on nasal canula. Labs show a creatinine of 1.57, a troponin of 0.059, and a pro BMP of 6827. Her chest x-ray shows cardiomegaly with pulmonary edema. She will be given Lasix in the ED. I discussed the patient's case with Dr. Bharat JACOBSON Hospitalist. He will evaluate the patient for further management. The hospitalist team will trend her troponin. It is thought that her troponin is elevated due to a CHF exacerbation. No anticoagulation will be given at this time. Consultations Consultation #1: I discussed the patient's case with Dr. Bharat JACOBSON Hospitalist. He will evaluate the patient for further management. Time: 16:48 Administered Medications Acetaminophen (Tylenol) 650 mg PO Q4H PRN PRN Reason: pain/fever Stop: 09/27/19 19:29 Last Admin: 06/16/19 21:17 Dose: 650 mg Documented by: [id number] Hydralazine HCl (Apresoline) 50 mg PO TID JOSE Stop: 07/16/19 20:59 Last Admin: 06/16/19 21:11 Dose: 50 mg Documented by: [id number] Insulin Aspart (Novolog Flexpen) 0 units SC ACHS JOSE Stop: 07/16/19 20:59 Last Admin: 06/16/19 21:16 Dose: 2 units Documented by: [id number] Cosigned by: [id number] Losartan Potassium (Cozaar) 50 mg PO BID JOSE Stop: 07/16/19 20:59 Last Admin: 06/16/19 21:10 Dose: 50 mg Documented by: [id number] Metoprolol Tartrate (Lopressor) 100 mg PO BID JOSE Stop: 07/16/19 20:59 Last Admin: 06/16/19 21:10 Dose: 100 mg Documented by: [id number] Fluticasone/Salmeterol (Advair Diskus 500/50) 1 puffs INH BID [facility] Stop: 07/16/19 20:59 Last Admin: 06/16/19 21:12 Dose: 1 puffs Documented by: [id number] Discontinued Medications Furosemide (Lasix) 40 mg IV NOW STA Stop: 06/16/19 16:48 Last Admin: 06/16/19 17:07 Dose: 40 mg Documented by: [id number] Medical Decision Making Medical Records Attestation: I reviewed the patient's medical records. Home Medications Current Medication List: was personally reviewed by me Laboratory Data Attestation: I reviewed the patient's lab results. Result diagrams: 06/16/19 15:33 06/16/19 15:33 Lab Results 06/16/19 06/16/19 06/16/19 Range/Units 15:33 15:33 15:33 WBC 12.81 H (4.8-10.8) K/uL RBC 4.37 (4.2-5.4) M/uL Hgb 12.8 (12.0-16.0) g/dL Hct 39.6 (37-47) % MCV 90.6 (80-100) fL MCH 29.3 (25-34) pg MCHC 32.3 (32-36) g/dL RDW Std Deviation 47.6 H (36.4-46.3) fL RDW Coeff of Stacey 14.2 (11.5-14.5) % Plt Count 304 (130-400) K/uL MPV 9.9 (7.4-10.4) fL Immature Gran % (Auto) 1.1 % Neut % (Auto) 79.1 % Lymph % (Auto) 11.8 % [place] % (Auto) 6.8 % Eos % (Auto) 1.1 % Baso % (Auto) 0.1 % Immature Gran # (Auto) 0.14 H (0.00-0.02) K/uL Neut # (Auto) 10.14 H (1.4-6.5) K/uL Lymph # (Auto) 1.51 (1.2-3.4) K/uL [place] # (Auto) 0.87 H (0.11-0.59) K/uL Eos # (Auto) 0.14 (0-0.5) K/uL Baso # (Auto) 0.01 (0-0.2) K/uL PT 10.5 (9.0-12.0) Seconds INR 1.0 (0.9-1.1) APTT 22.2 (21.0-31.0) Seconds PTT Ratio 0.8 Sodium 140 (136-145) mmol/L Potassium 4.1 (3.5-5.1) mmol/L Chloride 106 (98-107) mmol/L Carbon Dioxide 26 (21-32) mmol/L Anion Gap 8.0 (3-11) BUN 52 H (7-18) mg/dl Creatinine 1.57 H (0.6-1.2) mg/dl Est Cr Clr Drug Dosing Not Reportable Est GFR ( Amer) 37.3 Est GFR (Non-Af Amer) 32.1 BUN/Creatinine Ratio 33.3 H (10-20) Glucose 118 H (70-99) mg/dl POC Glucose (70-99) Calcium 9.2 (8.5-10.1) mg/dl Magnesium 2.4 (1.8-2.4) mg/dl Total Bilirubin 0.3 (0.2-1) mg/dl AST 24 (15-37) U/L ALT 30 (12-78) U/L Alkaline Phosphatase 106 (45-117) U/L Troponin I 0.059 H* (0-0.045) ng/ml NT-Pro-B Natriuret Pep 6827 H (0-900) pg/ml Total Protein 6.0 L (6.4-8.2) gm/dl Albumin 2.7 L (3.4-5.0) gm/dl Globulin 3.3 (2.5-4.0) gm/dl Albumin/Globulin Ratio 0.8 L (0.9-2) 06/16/19 Range/Units 16:40 WBC (4.8-10.8) K/uL RBC (4.2-5.4) M/uL Hgb (12.0-16.0) g/dL Hct (37-47) % MCV (80-100) fL MCH (25-34) pg MCHC (32-36) g/dL RDW Std Deviation (36.4-46.3) fL RDW Coeff of Stacey (11.5-14.5) % Plt Count (130-400) K/uL MPV (7.4-10.4) fL Immature Gran % (Auto) % Neut % (Auto) % Lymph % (Auto) % [place] % (Auto) % Eos % (Auto) % Baso % (Auto) % Immature Gran # (Auto) (0.00-0.02) K/uL Neut # (Auto) (1.4-6.5) K/uL Lymph # (Auto) (1.2-3.4) K/uL [place] # (Auto) (0.11-0.59) K/uL Eos # (Auto) (0-0.5) K/uL Baso # (Auto) (0-0.2) K/uL PT (9.0-12.0) Seconds INR (0.9-1.1) APTT (21.0-31.0) Seconds PTT Ratio Sodium (136-145) mmol/L Potassium (3.5-5.1) mmol/L Chloride (98-107) mmol/L Carbon Dioxide (21-32) mmol/L Anion Gap (3-11) BUN (7-18) mg/dl Creatinine (0.6-1.2) mg/dl Est Cr Clr Drug Dosing Est GFR ( Amer) Est GFR (Non-Af Amer) BUN/Creatinine Ratio (10-20) Glucose (70-99) mg/dl POC Glucose 106 H (70-99) Calcium (8.5-10.1) mg/dl Magnesium (1.8-2.4) mg/dl Total Bilirubin (0.2-1) mg/dl AST (15-37) U/L ALT (12-78) U/L Alkaline Phosphatase (45-117) U/L Troponin I (0-0.045) ng/ml NT-Pro-B Natriuret Pep (0-900) pg/ml Total Protein (6.4-8.2) gm/dl Albumin (3.4-5.0) gm/dl Globulin (2.5-4.0) gm/dl Albumin/Globulin Ratio (0.9-2) Imaging Data Radiologist's Impression: Radiology results as stated below per my review and the radiologist's interpretation: XR chest 1V portable HISTORY: 73 years-old Female Shortness of Breath and Weight Gain acute shortness of breath COMPARISON: Chest radiograph 03/09/2019 TECHNIQUE: Portable AP view of the chest FINDINGS: Unchanged cardiomegaly. Unchanged calcified granuloma of the left upper lung. Calcified plaque of the thoracic aortic arch. Pulmonary vascular congestion with interstitial coarsening. Unchanged mild biapical pleural-parenchymal scarring. No pneumothorax. Trace pleural effusions. Degenerative changes of the shoulders and spine. IMPRESSION: 1. Cardiomegaly with mild interstitial pulmonary edema. 2. Trace pleural effusions. The above report was generated using voice recognition software. It may contain grammatical, syntax or spelling errors. Electronically signed by: Ramesh Jimenez M.D. 06/16/2019 4:29 PM ECG Data Attestation: I personally reviewed and interpreted this ECG as follows: Indication: SOB/dyspnea Rate (beats per minute): 117 Rhythm: atrial fibrillation Findings: + other (QRS and QT-c intervals are within normal limits) and + PVC; no ST depression and no ST elevation Blood Pressure Blood Pressure Findings: Elevated blood pressure Blood Pressure Disposition: further management by hospitalist CHIQUITA Narrative Vital signs stable on nasal canula. Labs show a creatinine of 1.57, a troponin of 0.059, and a pro BMP of 6827. Her chest x-ray shows cardiomegaly with pulmonary edema. She will be given Lasix in the ED. I discussed the patient's case with Dr. Gross- [facility] [place] Hospitalist. He will evaluate the patient for further management. The hospitalist team will trend her troponin. It is thought that her troponin is elevated due to a CHF exacerbation. No anticoagulation will be given at this time. Impression & Plan CHF exacerbation Discharge Plan Visit Data *Final* Discharge Date/Time: 06/16/19 18:10 Chief Complaint: Shortness of Breath/Dyspnea Stated Complaint: SOB ED Provider: Jean Marie Figueroa Discharge Problem: CHF exacerbation Patient Disposition: Being Evaluated by Hospitalist Discharge Instructions Interventions: ED Discharge Assessment Last Done: 06/16/19 18:10 Discharge Problem: CHF exacerbation Qualifiers: Heart failure type: unspecified Qualified Code(s): I50.9 - Heart failure, unsp ecified The scribe's documentation has been prepared under my direction and personally reviewed by me in its entirety. I confirm that the note above accurately reflects all work, treatment, procedures, and medical decision making performed by me.
[2019-06-16] MEDS: ZOLPIDEM TARTRATE 5 MG TAB PO PRN (23:23)
[2019-06-16] MEDS: HYDROCODONE/ACETAMOPHEN 5/325MG TAB PO PRN (23:23)
[2019-06-17] MEDS ORDERED: MICONAZOLE NITRATE POWDER 43 GM EXT PRN (02:52)
[2019-06-17] MEDS: LEVOTHYROXINE SODIUM 88 MCG TABLET PO SCH (05:36)
[2019-06-17 06:21] LABS: Hemoglobin 12.4 g/dL (12.0-16.0); Mean Corpuscular Hemoglobin 29.2 pg (25-34); Mean Corpuscular Hgb Conc 31.8 g/dL (32-36); Mean Corpuscular Volume 91.8 fL (80-100); Mean Platelet Volume 10.2 fL (7.4-10.4); Platelet Count 246 K/uL (130-400); RDW Coefficient of Variation 14.4 % (11.5-14.5); RDW Standard Deviation 47.8 fL (36.4-46.3); Red Blood Count 4.25 M/uL (4.2-5.4); White Blood Count 7.89 K/uL (4.8-10.8)
[2019-06-17 06:50] LABS: BUN Creatinine Ratio 34.6 (10-20); Calcium 9.2 mg/dl (8.5-10.1); Creatinine Clr Calc Pharmacy 33.1 ml/min; Est GFR (African American) 37.8; Est GFR (Non-African American) 32.6; Magnesium 2.5 mg/dl (1.8-2.4); Potassium 3.9 mmol/L (3.5-5.1)
[2019-06-17] MEDS: INSULIN ASPART 100 UNITS/ML 3 ML PEN SC SCH ×4 (08:23→20:32)
[2019-06-17] MEDS: LOSARTAN POTASSIUM 50 MG TAB PO SCH ×2 (08:25→20:29)
[2019-06-17] MEDS: METOPROLOL TARTRATE 100 MG TAB PO SCH ×2 (08:25→20:31)
[2019-06-17] MEDS: FLUTICASONE/SALMETEROL (ADVAIR) 500/50 INH 14 PUFF INH SCH ×2 (08:25→20:27)
[2019-06-17] MEDS: AMLODIPINE BESYLATE 5 MG TAB PO SCH (08:27)
[2019-06-17] MEDS: HydrALAZINE TAB 50 MG TAB PO SCH ×3 (08:27→20:28)
[2019-06-17] MEDS: ASPIRIN 81 MG ECTAB PO SCH (08:27)
[2019-06-17] MEDS: EZETIMIBE 10 MG TABLET PO SCH (08:27)
[2019-06-17] MEDS: FUROSEMIDE 40 MG in SYRINGE 0 ML IV SCH ×2 (08:28→17:31)
[2019-06-17] MEDS: INSULIN GLARGINE SOLOSTAR 100 UNITS/ML 3 ML PEN SQ SCH (08:28)
[2019-06-17] MEDS ORDERED: FUROSEMIDE 40 MG in SYRINGE 0 ML IV SCH (09:00)
--- NOTE | 2019-06-17 13:50 | Heart Failure Consultation ---
Date of Consultation June 17, 2019 Assessment & Plan (1) Acute on chronic diastolic (congestive) heart failure: The patient is hypervolemic. She has a 10-15 lb weight gain, shortness of breath, and significant lower extremity edema. Agree with aggressive diuresis. So far she has not had a significant effect with Lasix 40 mg IV BID. Could consider increasing to 80 mg IV BID with a goal of net negative 1-2 L per day. BUN and creatinine are elevated but consistent with her baseline. Continue close monitoring. She is not currently requiring any potassium supplementation. Will continue to monitor supplement as needed. Daily standing weights. Continue strict I&Os. Recommend low-sodium/heart healthy diet, less than 2,000 mg daily. Recommend fluid restriction, less than 1500 mL per day. This was all discussed with the patient in detail today. Recommend routine follow up with the heart failure program and we reviewed when/why she should notify the program. (2) Atrial fibrillation, new onset: Patient presented in atrial fibrillation on EKG. This appears to be new onset. Her rate at admission was slightly high at 117. Since then her rate has been well controlled in the 70s and 80s when reviewed in telemetry. She is asymptomatic and unaware of her arrhythmia. This could likely be a contributing factor to her decompensation. Continue metoprolol at her current dose as her blood pressure and heart rate are currently well controlled. She has an elevated CHADS2-VASc score and would therefore recommend anticoagulation for stroke risk reduction. Disposition: Recommend close outpatient follow up with the CHF program. Will schedule an appointment for her within 7 days of discharge. I will be out of the hospital until 06/22/19. Issac Camacho is covering the CHF program Friday. Consider formal cardiology consult if not improving or having more difficulty with rate control. History of Present Illness Attending Physician: Ariel Saeed CHF PROGRAM REFERRAL: Ms. Mcgarry is a 73 year old female with past medical history of O2 dependent COPD (2L), chronic diastolic congestive heart failure, and chronic kidney disease. 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 She was initially referred to the heart failure program by the hospitalist during a previous hospitalization. Dr. Frausto is her PCP. Recent cardiac studies: 1. 03/11/19 Echocardiogram- Mild concentric LVH. LV systolic function is normal, EF 55-60%. Left atrium moderately dilated. RVSP is elevated 30-40 mmHg. She was admitted to [facility] from 03/09/19 through 03/12/19 for acute on chronic diastolic CHF and hypertensive urgency. She presented with progressive shortness of breath, bilateral lower extremity edema, and cough. She was hypertensive on presentation at 214/70. She was treated with Albuterol, Lasix, Solumedrol, and Nitro in the ED. Chest xray suggests pulmonary edema. ProBNP was elevated at 9073. Echocardiogram demonstrates preserved EF. Troponin was mildly elevated, demand ischemia suspected. She was initiated on Lasix 20 mg IV twice daily. She was transitioned to oral diuretics initially at Lasix 20 mg BID and was increased up to 40 mg BID. Hydralazine was restarted and her blood pressure improved. Her Amlodipine was increased to 5 mg daily. She had a net positive fluid balance and her weight did not change much but accuracy was questionable. She presented to the ED yesterday with progressive shortness of breath over the past 1-2 weeks. She also noted increased lower extremity and 10 lb weight gain. She was found to be in atrial fibrillation with a rate of 117 on her EKG and noted to have "history of atrial fibrillation" but I do not see any actual documented history of it in the notes or previous EKGs. She is not currently on anticoagulation. Pro-BNP was elevated at 6827 but lower than it was during the February admission. Chest x-ray with mild interstitial pulmonary edema, trace pleural effusions. Doppler with no evidence of DVT. Echocardiogram from 02/2019 demonstrates preserved EF 55-60% without valvular abnormalities. She reports she has been compliant with her diuretic therapy and takes Lasix 40 mg twice a day, every day. She denies skipping any doses. She denies any significant dietary indiscretion. She did go to the [facility] one time last week. She was initiated on Lasix 40 mg IV BID but has not had a significant response (-250 mL). Her weight is up 17 lb from her previous discharge weight. Today she appears comfortable in her bed and voices no new complaints. She is wearing supplemental O2. She does not note much change in her edema. She does not report much increase in her urine output. She is on telemetry and remains in atrial fibrillation with a well controlled rate. She is asymptomatic in that regard. She denies chest pain, dizziness, lightheadedness, syncope, near-syncope or palpitations. She denies cough, fever, wheezing, cerebrovascular symptoms, or signs of bleeding including melena and hematuria. Of note, patient has cancelled her last three appointments with the heart failure program. I questioned her about this and she reports "she's had a lot going on." Apparently her was recently diagnosed with lung cancer and is currently in the ED. Allergies Allergy/AdvReac Type Severity Reaction Status Date / Time LUCIANA Inhibitors AdvReac Intermediate COUGH Verified 06/16/19 16:59 Ddhbmfu-Vuz-Rgk Reductase AdvReac Intermediate MYALGIA Verified 06/16/19 16:59 Inhibitor doxycycline AdvReac Unknown Diarrhea Verified 06/16/19 16:59 clopidogrel AdvReac easy Verified 06/16/19 16:59 bruising, itching, chest and abd pain Home Medications Home Medications Medication Instructions Recorded Confirmed Type Lantus U-100 Insulin 20 unit SUBCUT DAILY PRN 08/06/18 06/16/19 History levothyroxine [Synthroid] 88 mcg PO QAM 08/06/18 06/16/19 History metoprolol tartrate [Lopressor] 100 mg PO BID 08/06/18 06/16/19 History hydralazine 50 mg PO TID 03/11/19 06/16/19 History losartan 50 mg PO BID 03/11/19 06/16/19 History furosemide 40 mg PO BID17 #60 tab 03/12/19 06/16/19 Rx fluticasone 500 mcg-salmeterol 50 1 inh INHALATION BID #60 ea 03/25/19 06/16/19 Rx mcg/dose blistr powdr for inhalation albuterol sulfate concentrate 2.5 2.5 mg INHALATION QID PRN #50 ea 04/05/19 06/16/19 Rx mg/0.5 mL solution for nebulization hydrocodone 5 mg-acetaminophen 325 1 tab PO Q8H PRN #40 tab 05/17/19 06/16/19 Rx mg tablet zolpidem 5 mg tablet 5 mg PO HS PRN #30 tab 06/15/19 06/16/19 Rx amlodipine 5 mg PO QAM 06/16/19 06/16/19 History aspirin [Adult Aspirin Regimen] 81 mg PO QAM 06/16/19 06/16/19 History ezetimibe [Zetia] 10 mg PO QAM 06/16/19 06/16/19 History Patient History Medical History Hyperparathyroidism Hypercalcemia Polymyalgia rheumatica GERD (gastroesophageal reflux disease) Diabetes Hypothyroid Hypertension CKD (chronic kidney disease) COPD (chronic obstructive pulmonary disease) (Acute) CHF (congestive heart failure) (Acute) SOB (shortness of breath) (Acute) exertional CKD (chronic kidney disease) COPD (chronic obstructive pulmonary disease) CVA (cerebral vascular accident) 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 This was not seen on 04/[address] Pt started on Plavix. Carotid artery stenosis > 70% stenosis in VAN 50-69% stenosis in LICA >50% stenosis in both ECAs *SURGEON AWARE Congestive heart failure Chronic diastolic, EF 65-70% Degenerative disc disease cervical Diabetes on insulin GERD (gastroesophageal reflux disease) Hx of chest pain Hypertension Hypothyroid Surgical History H/O rotator cuff surgery (Acute) left shoulder History of appendectomy History of cataract surgery History of colonoscopy History of hysterectomy History of tooth extraction Hx of cholecystectomy Family History Mother Family history of diabetes mellitus Brother Family history of diabetes mellitus Social History Preferred Language: Somali Communication Ability: Effective Visual Impairment: No Limitations Vessel Welder Required: No Beliefs That Will Affect Care: None marital status: Current Living Situation: Spouse and Family Feels Safe at Home: Yes Smoking Status: Former smoker Second Hand Exposure: No ; Hx Alcohol Use: No Hx Substance Use: No Review of Systems Review of Systems: As noted in HPI. All other ROS are reviewed and otherwise negative at this time. Physical Exam Physical Exam: Constitutional: Alert, oriented, in no acute distress. Supplementa O2 HEENT: Head is atraumatic and normocephalic. EOMs intact. Sclera anicteric. Face is symmetric. No perioral cyanosis. Mucous membranes moist. Neck: Supple, JVD noted half way to the mandible sitting upright. Pulmonary: Normal respiratory effort, clear to auscultation bilaterally Cardiac: Irregular rate and rhythm. Normal S1 and S2, no gallops, no rubs, no murmurs Extremities: 2+ radial pulses bilaterally. 2+ posterior tibialis pulses bilaterally. 2+ pitting edema to the knees. No cyanosis or clubbing. Abdomen: Normal bowel sounds, soft, non-tender, no abdominal mass palpated Skin: Normal skin color, turgor, and pigmentation, no rash, no skin lesions Neurological: Patient is awake, alert, and oriented. Pleasant and cooperative. Answers questions appropriately. Speech is clear. Normal movement in all 4 extremities. Results & Data Vital Signs (Past 12 Hours) Vital Signs Temp Pulse Pulse Resp BP Pulse Ox 06/17/19 11:46 97.5 F L 71 20 115/77 97 06/17/19 08:00 87 06/17/19 07:47 97.7 F 78 18 133/76 91 06/17/19 03:07 97.9 F 80 20 116/74 91 : CHF exacerbation Qualifiers: Heart failure type: unspecified Qualified Code(s): I50.9 - Heart failure, unspecified
[2019-06-17] MEDS: APIXABAN 5 MG TABLET PO SCH (20:30)
--- NOTE | 2019-06-17 22:27 | Hospitalist Progress Note ---
Date of Service June 17, 2019 Assessment & Plan (1) Acute on chronic diastolic (congestive) heart failure: Unclear cause of her exacerbation. Echo in 05/2019 showed EF of 55-60%. - Lasix 40mg IV BID - Monitor I&Os, weights - CHF consult - LLE doppler as her left leg swelling is greater than her right Appreciate input by heart failure team.: The patient is hypervolemic. She has a 10-15 lb weight gain, shortness of breath, and significant lower extremity edema. Agree with aggressive diuresis. So far she has not had a significant effect with Lasix 40 mg IV BID. Could consider increasing to 80 mg IV BID with a goal of net negative 1-2 L per day. BUN and creatinine are elevated but consistent with her baseline. Continue close monitoring. She is not currently requiring any potassium supplementation. Will continue to monitor supplement as needed. Daily standing weights. Co ntinue strict I&Os. Recommend low-sodium/heart healthy diet, less than 2,000 mg daily. Recommend fluid restriction, less than 1500 mL per day. This was all discussed with the patient in detail today. Recommend routine follow up with the heart failure program and we reviewed when/why she should notify the program. (2) Atrial fibrillation, new onset: No evidence on prior EKG or notes. Appears rate controlled. will monitor on tele. Placed on eliquis. Discussed side effects with patients/ (3) COPD (chronic obstructive pulmonary disease): No wheezing on exam. Patient finished azithromycin and prednisone taper last few weeks for an exacerbation. - Lower concern at present for exacerbation playing a role; however, probably have low threshold to start prednisone - Continue home inhalers - DuoNebs PRN (4) CKD (chronic kidney disease): (5) Hypertension: BP is 125/90 on admission. - Continue home medications (6) Diabetes: A1c was 7.3% in 03/2019. - Lowered home Lantus dose to 10 units daily from home 20 units - Sliding scale insulin (7) Hypothyroid: TSH was 1.6 in 03/2019. No signs/symptoms of hypo-/hyperthyroidism. - Continue home Synthroid 88 mcg (8) Polymyalgia rheumatica: Per prior PCP note, she is on prednisone 5-10mg PO daily for her PMR; however, she denied prednisone to me. Unclear whether she just meant a steroid b urst for COPD or off steroids all together. - Assess in morning and restart if needed (9) History of CVA (cerebrovascular accident): - Continue ASA and ezetimibe (10) Chronic respiratory failure: Chronic hypoxic respiratory failure (11) CKD stage G3b/A1, GFR 30-44 and albumin creatinine ratio <30 mg/g: Patient has CKD stage 3. Baseline Cr ~1.3-1.5, eGFR ~35. Cr just above normal on admission at 1.57; possibly cardiorenal. - Monitor Cr - Renally-dose medications (12) DVT prophylaxis: SCDs - Low DVT risk per admission calculator Spent 35 minutes in management of patient. Subjective Patient reports no new symptoms. She reports some improvement, but still has some shortness of breath and swelling in her lower Review of Systems Review of Systems: All systems reviewed & are unremarkable except as noted in HPI & below Physical Exam Physical Exam: Constitutional: WD/WN, vitals as above Eyes: EOM intact bilaterally; no conjunctival abnormality ENMT: external ear and nose normal, oropharynx normal Neck: trachea midline, no thyromegaly normal visual inspection Respiratory: normal respiratory effort, lungs clear to auscultation no respiratory distress Cardiovascular: Rate/Rhythm: regular rhythm and + tachycardic Heart Sounds: normal S1 and normal S2 Extremities: + edema (L>R legs) Gastrointestinal (Abdomen): Inspection/Auscultation: abdomen normal to inspection; abdomen not distended Musculoskeletal: no cyanosis or clubbing, extremities motor strength 5/5 Skin: no rashes, warm and dry Neurologic: moves all extremities and awake Psychiatric: Orientation: alert, oriented to person and cooperative Results & Data Vital Signs (Past 12 Hours) Vital Signs Temp Pulse Pulse Resp BP Pulse Ox 06/17/19 19:34 36.6 C 80 18 123/75 97 06/17/19 15:31 36.5 C 82 18 118/78 97 06/17/19 15:07 98 H 06/17/19 11:46 36.4 C L 71 20 115/77 97 PG Care Time/CCT Total # of Minutes Spent Total Time Spent with Patient: Total time spent is greater than 50% in coordination of care (as documented) at patient's floor/unit and/or counseling patient:
[2019-06-17] MEDS: ACETAMINOPHEN 325 MG TAB PO PRN (22:42)
[2019-06-17] MEDS: ZOLPIDEM TARTRATE 5 MG TAB PO PRN (22:43)
[2019-06-18] MEDS: LEVOTHYROXINE SODIUM 88 MCG TABLET PO SCH (06:20)
[2019-06-18] MEDS: LOSARTAN POTASSIUM 50 MG TAB PO SCH ×2 (08:53→20:24)
[2019-06-18] MEDS: FLUTICASONE/SALMETEROL (ADVAIR) 500/50 INH 14 PUFF INH SCH ×2 (08:53→20:24)
[2019-06-18] MEDS: METOPROLOL TARTRATE 100 MG TAB PO SCH ×2 (08:54→20:25)
[2019-06-18] MEDS: EZETIMIBE 10 MG TABLET PO SCH (08:54)
[2019-06-18] MEDS: HydrALAZINE TAB 50 MG TAB PO SCH ×3 (08:54→20:24)
[2019-06-18] MEDS: AMLODIPINE BESYLATE 5 MG TAB PO SCH (08:54)
[2019-06-18] MEDS: FUROSEMIDE 40 MG in SYRINGE 0 ML IV SCH ×2 (08:54→17:45)
[2019-06-18] MEDS: APIXABAN 5 MG TABLET PO SCH ×2 (08:55→20:25)
[2019-06-18] MEDS: ASPIRIN 81 MG ECTAB PO SCH (08:55)
[2019-06-18] MEDS: INSULIN ASPART 100 UNITS/ML 3 ML PEN SC SCH ×4 (08:56→20:26)
[2019-06-18] MEDS: INSULIN GLARGINE SOLOSTAR 100 UNITS/ML 3 ML PEN SQ SCH (08:57)
[2019-06-18 09:15] LABS: BUN Creatinine Ratio 36.1 (10-20); Calcium 9.7 mg/dl (8.5-10.1); Creatinine Clr Calc Pharmacy 32.6 ml/min; Est GFR (Non-African American) 31.9
[2019-06-18] MEDS: ACETAMINOPHEN 325 MG TAB PO PRN ×2 (14:55→22:17)
[2019-06-18] MEDS: ALBUT/IPRATROP 3MG/0.5MG NEB 3 ML VIAL NEB PRN (20:39)
[2019-06-18] MEDS: ZOLPIDEM TARTRATE 5 MG TAB PO PRN (22:19)
--- NOTE | 2019-06-18 22:31 | Hospitalist Progress Note ---
Date of Service June 18, 2019 Assessment & Plan (1) Acute on chronic diastolic (congestive) heart failure: Unclear cause of her exacerbation. Echo in 05/2019 showed EF of 55-60%. - Lasix 40mg IV BID - Monitor I&Os, weights - CHF consult - LLE doppler as her left leg swelling is greater than her right will continue lasix IV 40 mg BID. Close monitor Is and Os. montior potassium Patient continues to have lower extremity edema. Will place SHARON stockings to help (2) Atrial fibrillation, new onset: No evidence on prior EKG or notes. Appears rate controlled. will monitor on tele. Placed on eliquis. Discussed side effects with patients (3) COPD (chronic obstructive pulmonary disease): No wheezing on exam. Patient finished azithromycin and prednisone taper last few weeks for an exacerbation. - Lower concern at present for exacerbation playing a role; however, probably have low threshold to start prednisone - Continue home inhalers - DuoNebs PRN (4) CKD (chronic kidney disease): Baseline Cr ~1.3-1.5, eGFR ~35. Cr just above normal on admission at 1.57; possibly cardiorenal. - Monitor Cr - Renally-dose medications (5) Hypertension: BP is 125/90 on admission. - Continue home medications (6) Diabetes: A1c was 7.3% in 03/2019. - Lowered home Lantus dose to 10 units daily from home 20 units - Sliding scale insulin (7) Hypothyroid: TSH was 1.6 in 03/2019. No signs/symptoms of hypo-/hyperthyroidism. - Continue home Synthroid 88 mcg (8) Polymyalgia rheumatica: Per prior PCP note, she is on prednisone 5-10mg PO daily for her PMR; however, she denied prednisone to me. Unclear whether she just meant a steroid burst for COPD or off steroids all together. - Assess in morning and restart if needed (9) History of CVA (cerebrovascular accident): - Continue ASA and ezetimibe (10) Chronic respiratory failure: Chronic hypoxic respiratory failure (11) CKD stage G3b/A1, GFR 30-44 and albumin creatinine ratio <30 mg/g: Patient has CKD stage 3. Baseline Cr ~1.3-1.5, eGFR ~35. Cr just above normal on admission at 1.57; possibly cardiorenal. - Monitor Cr - Renally-dose medications (12) DVT prophylaxis: SCDs - Low DVT risk per admission calculator Spent 35 minutes in management of patient. Subjective Patient reports mild improvement in SOB. Patient reports she continues to have significant pain in her left lower extremitiy. She reports it is very swollen. Review of Systems Review of Systems: All systems reviewed & are unremarkable except as noted in HPI & below Physical Exam Physical Exam: Constitutional: WD/WN, vitals as above Eyes: EOM intact bilaterally; no conjunctival abnormality ENMT: external ear and nose normal, oropharynx normal Neck: trachea midline, no thyromegaly normal visual inspection Respiratory: normal respiratory effort, lungs clear to auscultation no respiratory distress Cardiovascular: Rate/Rhythm: regular rhythm and + tachycardic Heart Sounds: normal S1 and normal S2 Extremities: + edema (L>R legs) Gastrointestinal (Abdomen): Inspection/Auscultation: abdomen normal to inspection; abdomen not distended Musculoskeletal: no cyanosis or clubbing, extremities motor strength 5/5 Skin: no rashes, warm and dry Neurologic: moves all extremities and awake Psychiatric: Orientation: alert, oriented to person and cooperative Results & Data Vital Signs (Past 12 Hours) Vital Signs Temp Pulse Pulse Resp BP Pulse Ox 06/18/19 20:41 83 18 98 06/18/19 20:17 75 116/69 06/18/19 18:58 36.5 C 112 H 20 138/67 96 06/18/19 15:00 36.5 C 90 20 135/66 92 06/18/19 14:20 82 06/18/19 13:45 96 H 132/81 06/18/19 11:43 36.3 C L 89 20 116/66 96 PG Care Time/CCT Total # of Minutes Spent Total Time Spent with Patient: Total time spent is greater than 50% in coordination of care (as documented) at patient's floor/unit and/or counseling patient:
[2019-06-19] MEDS: LEVOTHYROXINE SODIUM 88 MCG TABLET PO SCH (06:19)
[2019-06-19 08:25] LABS: Hematocrit (blood only) 37.7 % (37-47); Mean Corpuscular Hemoglobin 28.9 pg (25-34); Mean Corpuscular Hgb Conc 31.8 g/dL (32-36); Mean Corpuscular Volume 90.8 fL (80-100); Mean Platelet Volume 9.9 fL (7.4-10.4); Platelet Count 242 K/uL (130-400); RDW Coefficient of Variation 14.4 % (11.5-14.5); RDW Standard Deviation 47.6 fL (36.4-46.3); Red Blood Count 4.15 M/uL (4.2-5.4); White Blood Count 8.16 K/uL (4.8-10.8)
[2019-06-19] MEDS: FLUTICASONE/SALMETEROL (ADVAIR) 500/50 INH 14 PUFF INH SCH ×2 (08:38→22:12)
[2019-06-19] MEDS: AMLODIPINE BESYLATE 5 MG TAB PO SCH (08:38)
[2019-06-19] MEDS: FUROSEMIDE 40 MG in SYRINGE 0 ML IV SCH ×2 (08:38→17:26)
[2019-06-19] MEDS: EZETIMIBE 10 MG TABLET PO SCH (08:39)
[2019-06-19] MEDS: HydrALAZINE TAB 50 MG TAB PO SCH ×3 (08:39→22:13)
[2019-06-19] MEDS: LOSARTAN POTASSIUM 50 MG TAB PO SCH ×2 (08:39→22:15)
[2019-06-19] MEDS: APIXABAN 5 MG TABLET PO SCH ×2 (08:39→22:13)
[2019-06-19] MEDS: METOPROLOL TARTRATE 100 MG TAB PO SCH ×2 (08:39→22:14)
[2019-06-19] MEDS: ASPIRIN 81 MG ECTAB PO SCH (08:40)
[2019-06-19] MEDS: INSULIN ASPART 100 UNITS/ML 3 ML PEN SC SCH ×4 (08:41→22:22)
[2019-06-19] MEDS: INSULIN GLARGINE SOLOSTAR 100 UNITS/ML 3 ML PEN SQ SCH (08:43)
[2019-06-19 08:56] LABS: BUN Creatinine Ratio 36.8 (10-20); Calcium 9.7 mg/dl (8.5-10.1); Creatinine Clr Calc Pharmacy 33.6 ml/min; Est GFR (African American) 38.4; Est GFR (Non-African American) 33.2; Potassium 4.1 mmol/L (3.5-5.1)
[2019-06-19] MEDS: ALBUT/IPRATROP 3MG/0.5MG NEB 3 ML VIAL NEB PRN (17:35)
[2019-06-19] MEDS: ACETAMINOPHEN 325 MG TAB PO PRN (19:50)
[2019-06-19] MEDS: HYDROCODONE/ACETAMOPHEN 5/325MG TAB PO PRN (22:10)
[2019-06-19] MEDS: ZOLPIDEM TARTRATE 5 MG TAB PO PRN (22:11)
--- NOTE | 2019-06-19 23:44 | Hospitalist Progress Note ---
Date of Service June 19, 2019 Assessment & Plan (1) Acute on chronic diastolic (congestive) heart failure: Unclear cause of her exacerbation. Echo in 05/2019 showed EF of 55-60%. - Lasix 40mg IV BID - Monitor I&Os, weights - CHF consult - LLE doppler as her left leg swelling is greater than her right will continue lasix IV 40 mg BID. Close monitor Is and Os. montior potassium Patient continues to have lower extremity edema. Will place SHARON stockings to help Patient lower extremity appears to have improved with SHARON stockings, but patient continues to be SOB especially at ambulation. Will continue with same dose of IV lasix. (2) Atrial fibrillation, new onset: No evidence on prior EKG or notes. Appears rate controlled. will monitor on tele. Placed on eliquis. Discussed side effects with patients (3) COPD (chronic obstructive pulmonary disease): No wheezing on exam. Patient finished azithromycin and prednisone taper last few weeks for an exacerbation. - Lower concern at present for exacerbation playing a role; however, probably have low threshold to start prednisone - Continue home inhalers - DuoNebs PRN (4) CKD (chronic kidney disease): Baseline Cr ~1.3-1.5, eGFR ~35. Cr just above normal on admission at 1.57; possibly cardiorenal. - Monitor Cr - Renally-dose medications (5) Hypertension: BP is 125/90 on admission. - Continue home medications (6) Diabetes: A1c was 7.3% in 03/2019. - Lowered home Lantus dose to 10 units daily from home 20 units - Sliding scale insulin (7) Hypothyroid: TSH was 1.6 in 03/2019. No signs/symptoms of hypo-/hyperthyroidism. - Continue home Synthroid 88 mcg (8) Polymyalgia rheumatica: Per prior PCP note, she is on prednisone 5-10mg PO daily for her PMR; however, she denied prednisone to me. Unclear whether she just meant a steroid burst for COPD or off steroids all together. - Assess in morning and restart if needed (9) History of CVA (cerebrovascular accident): - Continue ASA and ezetimibe (10) Chronic respiratory failure: Chronic hypoxic respiratory failure (11) CKD stage G3b/A1, GFR 30-44 and albumin creatinine ratio <30 mg/g: Patient has CKD stage 3. Baseline Cr ~1.3-1.5, eGFR ~35. Cr just above normal on admission at 1.57; possibly cardiorenal. - Monitor Cr - Renally-dose medications (12) DVT prophylaxis: SCDs - Low DVT risk per admission calculator Spent 35 minutes in management of patient. Subjective Patient reports no new symptoms. But she also reports no improvement. Review of Systems Review of Systems: All systems reviewed & are unremarkable except as noted in HPI & below Physical Exam Physical Exam: Constitutional: WD/WN, vitals as above Eyes: EOM intact bilaterally; no conjunctival abnormality ENMT: external ear and nose normal, oropharynx normal Neck: trachea midline, no thyromegaly normal visual inspection Respiratory: normal respiratory effort, lungs clear to auscultation no respiratory distress Cardiovascular: Rate/Rhythm: regular rhythm and + tachycardic Heart Sounds: normal S1 and normal S2 Extremities: + edema (L>R legs) Gastrointestinal (Abdomen): Inspection/Auscultation: abdomen normal to inspection; abdomen not distended Musculoskeletal: no cyanosis or clubbing, extremities motor strength 5/5 Skin: no rashes, warm and dry Neurologic: moves all extremities and awake Psychiatric: Orientation: alert, oriented to person and cooperative Results & Data Vital Signs (Past 12 Hours) Vital Signs Temp Pulse Pulse Resp BP Pulse Ox 06/19/19 19:47 90 06/19/19 19:00 36.8 C 99 H 20 107/61 92 06/19/19 17:36 87 20 89 L 06/19/19 16:09 36.9 C 85 20 124/73 94 PG Care Time/CCT Total # of Minutes Spent Total Time Spent with Patient: Total time spent is greater than 50% in coordination of care (as documented) at patient's floor/unit and/or counseling patient:
[2019-06-20] MEDS: LEVOTHYROXINE SODIUM 88 MCG TABLET PO SCH (05:37)
[2019-06-20 06:57] LABS: Creatinine Clr Calc Pharmacy 30.9 ml/min; Est GFR (African American) 34.6; Est GFR (Non-African American) 29.8
[2019-06-20] MEDS: APIXABAN 5 MG TABLET PO SCH ×2 (08:38→20:56)
[2019-06-20] MEDS: HydrALAZINE TAB 50 MG TAB PO SCH ×3 (08:38→20:55)
[2019-06-20] MEDS: ASPIRIN 81 MG ECTAB PO SCH (08:38)
[2019-06-20] MEDS: FLUTICASONE/SALMETEROL (ADVAIR) 500/50 INH 14 PUFF INH SCH ×2 (08:38→20:54)
[2019-06-20] MEDS: METOPROLOL TARTRATE 100 MG TAB PO SCH ×2 (08:39→20:54)
[2019-06-20] MEDS: AMLODIPINE BESYLATE 5 MG TAB PO SCH (08:39)
[2019-06-20] MEDS: EZETIMIBE 10 MG TABLET PO SCH (08:39)
[2019-06-20] MEDS: LOSARTAN POTASSIUM 50 MG TAB PO SCH ×2 (08:39→20:56)
[2019-06-20] MEDS: INSULIN GLARGINE SOLOSTAR 100 UNITS/ML 3 ML PEN SQ SCH (08:39)
[2019-06-20] MEDS: INSULIN ASPART 100 UNITS/ML 3 ML PEN SC SCH ×4 (08:41→21:13)
[2019-06-20] MEDS: FUROSEMIDE 40 MG in SYRINGE 0 ML IV SCH ×2 (08:53→16:15)
[2019-06-20] MEDS: ACETAMINOPHEN 325 MG TAB PO PRN (10:43)
--- NOTE | 2019-06-20 11:13 | XRay Report ---
XR chest 1V portable HISTORY: Shortness of breath. COMPARISON: Chest 06/16/2019. FINDINGS: Stable calcified granuloma within the left upper lobe. No pneumothorax. Cardiomegaly, mild interstitial pulmonary edema, small bilateral pleural effusions have slightly progressed. IMPRESSION: Slight progression of the pulmonary edema and small bilateral pleural effusions. Electronically signed by: Gianni Ochoa M.D. 06/20/2019 11:11 AM
[2019-06-20] MEDS ORDERED: FUROSEMIDE 40 MG/4 ML VIAL IV STA (20:28)
[2019-06-20] MEDS: ALBUT/IPRATROP 3MG/0.5MG NEB 3 ML VIAL NEB PRN (20:40)
--- NOTE | 2019-06-20 23:08 | Hospitalist Progress Note ---
Date of Service June 20, 2019 Assessment & Plan (1) Acute on chronic diastolic (congestive) heart failure: Unclear cause of her exacerbation. Echo in 05/2019 showed EF of 55-60%. - Lasix 40mg IV BID - Monitor I&Os, weights - CHF consult - LLE doppler as her left leg swelling is greater than her right Placed on fluid restriction.2 gr sodium diet. X-RAY shows worseneing edema in lung If no improvement in am, will increase dose to 80 mg iv LASIX (2) Atrial fibrillation, new onset: No evidence on prior EKG or notes. Appears rate controlled. will monitor on tele. Placed on eliquis. Discussed side effects with patients (3) COPD (chronic obstructive pulmonary disease): No wheezing on exam. Patient finished azithromycin and prednisone taper last few weeks for an exacerbation. - Lower concern at present for exacerbation playing a role; however, probably have low threshold to start prednisone - Continue home inhalers - DuoNebs PRN (4) CKD (chronic kidney disease): Baseline Cr ~1.3-1.5, eGFR ~35. Cr just above normal on admission at 1.57; possibly cardiorenal. - creat. remains elevated - Renally-dose medications (5) Hypertension: BP is 125/90 on admission. - Continue home medications (6) Diabetes: A1c was 7.3% in 03/2019. - Lowered home Lantus dose to 10 units daily from home 20 units - Sliding scale insulin (7) Hypothyroid: TSH was 1.6 in 03/2019. No signs/symptoms of hypo-/hyperthyroidism. - Continue home Synthroid 88 mcg (8) Polymyalgia rheumatica: Per prior PCP note, she is on prednisone 5-10mg PO daily for her PMR; however, she denied prednisone to me. Unclear whether she just meant a steroid burst for COPD or off steroids all together. - Assess in morning and restart if needed (9) History of CVA (cerebrovascular accident): - Continue ASA and ezetimibe (10) Chronic respiratory failure: Chronic hypoxic respiratory failure (11) CKD stage G3b/A1, GFR 30-44 and albumin creatinine ratio <30 mg/g: Patient has CKD stage 3. Baseline Cr ~1.3-1.5, eGFR ~35. Cr just above normal on admission at 1.57; possibly cardiorenal. - Monitor Cr - Renally-dose medications (12) DVT prophylaxis: SCDs - Low DVT risk per admission calculator Spent 35 minutes in management of patient. Subjective Patient reports feeling misearable. She reports no improvement and continues to be short of breath even at rest. Patient denies any fever chills, nausea, vomiting. Review of Systems Review of Systems: All systems reviewed & are unremarkable except as noted in HPI & below Physical Exam Physical Exam: Constitutional: WD/WN, vitals as above Eyes: EOM intact bilaterally; no conjunctival abnormality ENMT: external ear and nose normal, oropharynx normal Neck: trachea midline, no thyromegaly normal visual inspection Respiratory: normal respiratory effort, bibasilar rales, no respiratory distress Cardiovascular: Rate/Rhythm: regular rhythm and + tachycardic Heart Sounds: normal S1 and normal S2 Extremities: + edema (L>R legs) also swelling of hands Gastrointestinal (Abdomen): Inspection/Auscultation: abdomen normal to inspection; abdomen not distended Musculoskeletal: no cyanosis or clubbing, extremities motor strength 5/5 Skin: no rashes, warm and dry Neurologic: moves all extremities and awake Psychiatric: Orientation: alert, oriented to person and cooperative Results & Data Vital Signs (Past 12 Hours) Vital Signs Temp Pulse Pulse Pulse Resp BP Pulse Ox 06/20/19 20:34 96 H 90 06/20/19 20:04 37.1 C 102 H 20 136/76 90 06/20/19 16:15 36.7 C 99 H 18 136/93 92 06/20/19 14:22 84 06/20/19 11:22 36.9 C 86 18 103/61 91 PG Care Time/CCT Total # of Minutes Spent Total Time Spent with Patient: Total time spent is greater than 50% in coordination of care (as documented) at patient's floor/unit and/or counseling patient:
[2019-06-20] MEDS: HYDROCODONE/ACETAMOPHEN 5/325MG TAB PO PRN (23:32)
[2019-06-20] MEDS: ZOLPIDEM TARTRATE 5 MG TAB PO PRN (23:32)
[2019-06-21] MEDS: LEVOTHYROXINE SODIUM 88 MCG TABLET PO SCH (06:22)
[2019-06-21] MEDS: FUROSEMIDE 40 MG in SYRINGE 0 ML IV SCH ×2 (08:52→17:17)
[2019-06-21] MEDS: FLUTICASONE/SALMETEROL (ADVAIR) 500/50 INH 14 PUFF INH SCH ×2 (08:52→22:13)
[2019-06-21] MEDS: METOPROLOL TARTRATE 100 MG TAB PO SCH ×2 (08:52→22:14)
[2019-06-21] MEDS: HydrALAZINE TAB 50 MG TAB PO SCH ×3 (08:52→22:14)
[2019-06-21] MEDS: INSULIN GLARGINE SOLOSTAR 100 UNITS/ML 3 ML PEN SQ SCH (08:52)
[2019-06-21] MEDS: AMLODIPINE BESYLATE 5 MG TAB PO SCH (08:52)
[2019-06-21] MEDS: APIXABAN 5 MG TABLET PO SCH ×2 (08:52→22:14)
[2019-06-21] MEDS: ASPIRIN 81 MG ECTAB PO SCH (08:52)
[2019-06-21] MEDS: EZETIMIBE 10 MG TABLET PO SCH (08:52)
[2019-06-21] MEDS: LOSARTAN POTASSIUM 50 MG TAB PO SCH ×2 (08:52→22:15)
[2019-06-21] MEDS: INSULIN ASPART 100 UNITS/ML 3 ML PEN SC SCH ×4 (08:53→21:41)
--- NOTE | 2019-06-21 17:04 | Hospitalist Progress Note ---
Date of Service June 21, 2019 Assessment & Plan (1) Acute on chronic diastolic (congestive) heart failure: Unclear cause of her exacerbation. Echo in 05/2019 showed EF of 55-60%. - Lasix 40mg IV BID - Monitor I&Os, weights -Appreciate to Yaritza Glover recommendation in regards of CHF consult -Patient started on Eliquis for arrhythmia 5 mg twice daily -LLE Doppler : No evidence of deep nose thrombosis with extremity. Placed on fluid restriction.2 gr sodium diet. X-RAY shows worsening edema in lung-now improving, good urinary output. If no improvement in am, will increase dose to 80 mg iv LASIX (2) Atrial fibrillation, new onset: No evidence on prior EKG or notes. Appears rate controlled Continue monitoring on tele. Continue Eliquis. Discussed side effects with patients (3) COPD (chronic obstructive pulmonary disease): No wheezing on exam. Patient finished azithromycin and prednisone taper last few weeks for an exacerbation. - Lower concern at present for exacerbation playing a role; however, probably have low threshold to start prednisone - Continue home inhalers - Yadi PRN (4) CKD (chronic kidney disease): Baseline Cr ~1.3-1.5, eGFR ~35. Cr just above normal on admission at 1.57; possibly cardiorenal. - creat. remains elevated - Renally-dose medications (5) Hypertension: BP is 125/90 on admission. - Continue home medications (6) Diabetes: A1c was 7.3% in 03/2019. - Lowered home Lantus dose to 10 units daily from home 20 units - Sliding scale insulin (7) Hypothyroid: TSH was 1.6 in 03/2019. No signs/symptoms of hypo-/hyperthyroidism. - Continue home Synthroid 88 mcg (8) Polymyalgia rheumatica: Per prior PCP note, she is on prednisone 5-10mg PO daily for her PMR; however, she denied prednisone to me. Unclear whether she just meant a steroid burst for COPD or off steroids all together. - Assess in morning and restart if needed (9) History of CVA (cerebrovascular accident): - Continue ASA and ezetimibe (10) Chronic respiratory failure: Chronic hypoxic respiratory failure (11) CKD stage G3b/A1, GFR 30-44 and albumin creatinine ratio <30 mg/g: Patient has CKD stage 3. Baseline Cr ~1.3-1.5, eGFR ~35. Cr just above normal on admission at 1.57; possibly cardiorenal. - Monitor Cr - Renally-dose medications (12) DVT prophylaxis: SCDs - Low DVT risk per admission calculator Spent 35 minutes in management of patient. Subjective Patient seen and examined at the bedside. Slowly improving. P.o. intake is slowly improving as well. Afebrile. Patient denies fever chills chest pain shortness of breath abdominal pain frequency urgency hematuria pyuria melena. Review of Systems Review of Systems: All systems reviewed & are unremarkable except as noted in HPI & below Physical Exam Constitutional: WD/WN, vitals as above well developed and + obese Eyes: PERRL, conjunctivae normal, anicteric sclerae ENMT: external ear and nose normal, oropharynx normal Neck: trachea midline, no thyromegaly Respiratory: normal respiratory effort Auscultation: + crackles and + wheezes Cardiovascular: Heart Sounds: normal S1, normal S2 and + murmur Palpation: + palpable S3 Musculoskeletal: no cyanosis or clubbing, extremities motor strength 5/5 Skin: no rashes, warm and dry Neurologic: patellar DTR's 2+ bilat, sensation intact Genitourinary: no vaginal lesions, no adnexal mass Lymphatic: no cervical or axillary lymphadenopathy Results & Data Vital Signs (Past 12 Hours) Vital Signs Temp Pulse Pulse Resp BP Pulse Ox 06/21/19 16:16 97 H 06/21/19 15:00 36.5 C 99 H 20 112/71 95 06/21/19 12:08 36.9 C 64 20 121/74 93 06/21/19 09:00 82 06/21/19 07:36 36.2 C L 95 H 94 H 106/58 L PG Care Time/CCT Total # of Minutes Spent Total Time Spent with Patient: Total time spent is greater than 50% in coordination of care (as documented) at patient's floor/unit and/or counseling patient:
[2019-06-21 17:34] LABS: Basophils # (auto) 0.02 K/uL (0-0.2); Basophils % (auto) 0.3 %; Eosinophils # (auto) 0.12 K/uL (0-0.5); Eosinophils % (auto) 1.7 %; Hematocrit (blood only) 37.5 % (37-47); Hemoglobin 11.5 g/dL (12.0-16.0); Immature Granulocytes # (auto) 0.03 K/uL (0.00-0.02); Immature Granulocytes % (auto) 0.4 %; Lymphocytes # (auto) 1.04 K/uL (1.2-3.4); Lymphocytes % (auto) 15.1 %; Mean Corpuscular Hemoglobin 28.4 pg (25-34); Mean Corpuscular Volume 92.6 fL (80-100); Mean Platelet Volume 9.8 fL (7.4-10.4); Monocytes # (auto) 0.65 K/uL (0.11-0.59); Monocytes % (auto) 9.4 %; Neutrophils # (auto) 5.05 K/uL (1.4-6.5); Neutrophils % (auto) 73.1 %; Platelet Count 231 K/uL (130-400); RDW Coefficient of Variation 14.4 % (11.5-14.5); RDW Standard Deviation 49.3 fL (36.4-46.3); Red Blood Count 4.05 M/uL (4.2-5.4); White Blood Count 6.91 K/uL (4.8-10.8)
[2019-06-21 17:48] LABS: Mean Corpuscular Hgb Conc 30.7 g/dL (32-36)
[2019-06-21 17:51] LABS: Albumin Level 2.8 gm/dl (3.4-5.0); BUN Creatinine Ratio 29.1 (10-20); Calcium 9.4 mg/dl (8.5-10.1); Creatinine Clr Calc Pharmacy 24.9 ml/min; Est GFR (African American) 26.7; Potassium 4.7 mmol/L (3.5-5.1)
[2019-06-21 17:56] LABS: Albumin Globulin Ratio 0.8 (0.9-2); Bilirubin,Total 0.3 mg/dl (0.2-1); Globulin 3.6 gm/dl (2.5-4.0); Total Protein 6.4 gm/dl (6.4-8.2)
[2019-06-21] MEDS: ACETAMINOPHEN 325 MG TAB PO PRN (19:26)
[2019-06-21] MEDS: HYDROCODONE/ACETAMOPHEN 5/325MG TAB PO PRN (22:13)
[2019-06-21] MEDS: ZOLPIDEM TARTRATE 5 MG TAB PO PRN (22:14)
[2019-06-22] MEDS: LEVOTHYROXINE SODIUM 88 MCG TABLET PO SCH (04:39)
[2019-06-22 06:51] LABS: Basophils # (auto) 0.01 K/uL (0-0.2); Basophils % (auto) 0.2 %; Eosinophils # (auto) 0.22 K/uL (0-0.5); Eosinophils % (auto) 3.9 %; Hematocrit (blood only) 36.9 % (37-47); Hemoglobin 11.5 g/dL (12.0-16.0); Immature Granulocytes # (auto) 0.02 K/uL (0.00-0.02); Immature Granulocytes % (auto) 0.4 %; Lymphocytes # (auto) 0.86 K/uL (1.2-3.4); Lymphocytes % (auto) 15.2 %; Mean Corpuscular Hemoglobin 29.3 pg (25-34); Mean Corpuscular Hgb Conc 31.2 g/dL (32-36); Mean Corpuscular Volume 94.1 fL (80-100); Mean Platelet Volume 10.3 fL (7.4-10.4); Monocytes % (auto) 10.6 %; Neutrophils # (auto) 3.95 K/uL (1.4-6.5); Neutrophils % (auto) 69.7 %; Platelet Count 211 K/uL (130-400); RDW Coefficient of Variation 14.6 % (11.5-14.5); RDW Standard Deviation 50.1 fL (36.4-46.3); Red Blood Count 3.92 M/uL (4.2-5.4); White Blood Count 5.66 K/uL (4.8-10.8)
[2019-06-22 07:23] LABS: Albumin Level 2.7 gm/dl (3.4-5.0); BUN Creatinine Ratio 32.9 (10-20); Calcium 9.7 mg/dl (8.5-10.1); Est GFR (African American) 28.1; Est GFR (Non-African American) 24.3; Potassium 4.7 mmol/L (3.5-5.1)
[2019-06-22 07:26] LABS: Albumin Globulin Ratio 0.8 (0.9-2); Bilirubin,Total 0.4 mg/dl (0.2-1); Globulin 3.3 gm/dl (2.5-4.0)
[2019-06-22] MEDS: ASPIRIN 81 MG ECTAB PO SCH (08:24)
[2019-06-22] MEDS: EZETIMIBE 10 MG TABLET PO SCH (08:24)
[2019-06-22] MEDS: AMLODIPINE BESYLATE 5 MG TAB PO SCH (08:24)
[2019-06-22] MEDS: HydrALAZINE TAB 50 MG TAB PO SCH ×3 (08:25→20:11)
[2019-06-22] MEDS: LOSARTAN POTASSIUM 50 MG TAB PO SCH ×2 (08:25→20:11)
[2019-06-22] MEDS: APIXABAN 5 MG TABLET PO SCH ×2 (08:25→20:12)
[2019-06-22] MEDS: METOPROLOL TARTRATE 100 MG TAB PO SCH ×2 (08:25→20:12)
[2019-06-22] MEDS: FLUTICASONE/SALMETEROL (ADVAIR) 500/50 INH 14 PUFF INH SCH ×2 (08:25→20:10)
[2019-06-22] MEDS: INSULIN GLARGINE SOLOSTAR 100 UNITS/ML 3 ML PEN SQ SCH (08:26)
[2019-06-22] MEDS: INSULIN ASPART 100 UNITS/ML 3 ML PEN SC SCH ×4 (08:27→20:48)
[2019-06-22] MEDS: FUROSEMIDE 40 MG in SYRINGE 0 ML IV SCH ×2 (10:17→16:14)
[2019-06-22] MEDS: ACETAMINOPHEN 325 MG TAB PO PRN (15:35)
--- NOTE | 2019-06-22 18:48 | Hospitalist Progress Note ---
Date of Service June 22, 2019 Assessment & Plan (1) Acute on chronic diastolic (congestive) heart failure: Improving but failed titration of oxygen Continue Lasix 40 mg IV twice daily, continue daily weight, continue monitoring I&O's echo in 05/2019 showed EF of 55-60%. Appreciate to Yaritza Glover recommendation in regards of CHF consult Continue Eliquis 5 mg twice daily LLE Doppler : No evidence of deep nose thrombosis with extremity. Placed on fluid restriction.2 gr sodium diet. If no improvement, will consider switching to Bumex tomorrow (2) Atrial fibrillation, new onset: Currently rate controlled, continue metoprolol Started Eliquis 5 mg p.o. twice daily Clinically suspected obstructive sleep apnea, will order nocturnal pulse ox (3) COPD (chronic obstructive pulmonary disease): Recently finished azithromycin and prednisone taper We will start low-dose prednisone taper Start bronchodilators with Xopenex and ipratropium bromide (4) CKD (chronic kidney disease): Baseline Cr ~1.3-1.5, eGFR ~35. Cr just above normal on admission at 1.57; possibly cardiorenal. Slight elevation of creatinine, to 1.9, possibly her new baseline (5) Hypertension: BP is 125/90 on admission. Continue home medications (6) Diabetes: A1c was 7.3% in 03/2019. Lowered home Lantus dose to 10 units daily from home 20 units Sliding scale insulin (7) Hypothyroid: TSH was 1.6 in 03/2019. No signs/symptoms of hypo-/hyperthyroidism. Continue home Synthroid 88 mcg (8) Polymyalgia rheumatica: Per prior PCP note, she is on prednisone 5-10mg PO daily for her PMR; however, she denied prednisone to me. Unclear whether she just meant a steroid burst for COPD or off steroids all together. Assess in morning and restart if needed (9) History of CVA (cerebrovascular accident): Continue ASA and ezetimibe (10) Chronic respiratory failure: Chronic hypoxic respiratory failure (11) CKD stage G3b/A1, GFR 30-44 and albumin creatinine ratio <30 mg/g: Patient has CKD stage 3. Baseline Cr ~1.3-1.5, eGFR ~35. Cr just above normal on admission at 1.57; possibly cardiorenal. - Monitor Cr - Renally-dose medications (12) DVT prophylaxis: DVT prophylaxis and elect Subjective Sitting in bed, has mild distress Continues to have shortness of breath During the titration of oxygen, she desaturated to 89%. Review of Systems Review of Systems: Review of system Constitutional: No fever / no chills / no sweats / no weakness / no fatigue Eyes: no blurring of vision / no eye pain / no discharge / no redness ENT: no hearing loss / no epistaxis /no swallowing problems Respiratory: Shortness of breath, mild wheezing, positive cough/dry cough / no hemoptysis Cardiovascular: no Chest pain / no lower extremity edema / no palpitation Abdomen: no pain / no nausea / no vomiting / no constipation Musculoskeletal: no joint pain / no muscle pain / no joint swelling Genitourinary: no dysuria / no incontinence / no urinary retention Neurologic: no focal weakness / no numbness/tingling / no ataxia Psychiatric: no depression symptoms / no anxiety / no insomnia Endocrine: no excessive thirst / no excessive urination Hematologic: no abnormal bleeding / no bruising / no LN swelling Skin: No rash / no pallor Physical Exam Physical Exam: Physical examination General patient appears to be comfortable, not in acute distress HEENT: Atraumatic , normocephalic /no jaundice /no pallor /anicteric /no dry mucous membrane /normal external ear inspection Neck: Supple /no swelling /central trach Heart: S1/S2 normal/regular rate and rhythm/no gallop /no rub /no murmur Lungs: Decreased air entry bilaterally, generalized mild wheezing both lung nichols, scattered rhonchi, no chest wall tenderness Abdomen: Soft/nontender/no guarding/no rebound/no organomegaly/no pulsatile mass Musculoskeletal: No swelling/no edema/no tenderness/normal range of motion Neuro exam: Awake alert oriented 3/cranial nerves II through XII appear to be intact/sensation intact/moves all extremities/no abnormal movements Psychiatric evaluation: No depressed mood/normal affect Skin: No rash on exposed skin area/no erythema Extremity: Normal pulse/no pitting edema/no clubbing or cyanosis Endocrine/lymphatic: No obvious lymphadenopathy /no lymphedema Results & Data Vital Signs (Past 12 Hours) Vital Signs Temp Pulse Pulse Resp BP Pulse Ox 06/22/19 15:25 85 06/22/19 15:09 36.5 C 86 18 138/68 89 L 06/22/19 13:10 88 136/73 06/22/19 11:31 36.8 C 86 18 127/60 89 L 06/22/19 07:03 36.6 C 85 18 149/83 H 2 L PG Care Time/CCT Total # of Minutes Spent Total Time Spent with Patient: 35 minutes total time spent is greater than 50% in coordination of care (as documented) at patient's floor/unit and/or counseling patient/family discussion of care with nursing staff
[2019-06-22] MEDS: ALBUT/IPRATROP 3MG/0.5MG NEB 3 ML VIAL NEB SCH (19:49)
[2019-06-22] MEDS: predniSONE 20 MG TAB PO SCH (20:10)
[2019-06-22] MEDS: HYDROCODONE/ACETAMOPHEN 5/325MG TAB PO PRN (22:29)
[2019-06-22] MEDS: ZOLPIDEM TARTRATE 5 MG TAB PO PRN (22:29)
[2019-06-23] MEDS: LEVOTHYROXINE SODIUM 88 MCG TABLET PO SCH (06:06)
[2019-06-23 06:48] LABS: Basophils # (auto) 0.01 K/uL (0-0.2); Basophils % (auto) 0.2 %; Eosinophils # (auto) 0.01 K/uL (0-0.5); Eosinophils % (auto) 0.2 %; Hematocrit (blood only) 37.2 % (37-47); Hemoglobin 11.5 g/dL (12.0-16.0); Immature Granulocytes # (auto) 0.03 K/uL (0.00-0.02); Immature Granulocytes % (auto) 0.5 %; Mean Corpuscular Hgb Conc 30.9 g/dL (32-36); Mean Corpuscular Volume 93.9 fL (80-100); Mean Platelet Volume 10.3 fL (7.4-10.4); Monocytes # (auto) 0.14 K/uL (0.11-0.59); Monocytes % (auto) 2.2 %; Neutrophils # (auto) 5.59 K/uL (1.4-6.5); Neutrophils % (auto) 88.9 %; Platelet Count 215 K/uL (130-400); RDW Coefficient of Variation 14.4 % (11.5-14.5); RDW Standard Deviation 49.4 fL (36.4-46.3); Red Blood Count 3.96 M/uL (4.2-5.4); White Blood Count 6.28 K/uL (4.8-10.8)
[2019-06-23] MEDS: ALBUT/IPRATROP 3MG/0.5MG NEB 3 ML VIAL NEB SCH ×3 (07:22→15:05)
[2019-06-23 07:25] LABS: Albumin Level 2.8 gm/dl (3.4-5.0); BUN Creatinine Ratio 38.6 (10-20); Calcium 9.8 mg/dl (8.5-10.1); Creatinine Clr Calc Pharmacy 28.9 ml/min; Est GFR (African American) 31.8; Est GFR (Non-African American) 27.4; Magnesium 2.9 mg/dl (1.8-2.4); Potassium 4.8 mmol/L (3.5-5.1)
[2019-06-23 07:28] LABS: Albumin Globulin Ratio 0.8 (0.9-2); Bilirubin,Total 0.4 mg/dl (0.2-1); Globulin 3.6 gm/dl (2.5-4.0); Total Protein 6.4 gm/dl (6.4-8.2)
[2019-06-23] MEDS: EZETIMIBE 10 MG TABLET PO SCH (09:04)
[2019-06-23] MEDS: ASPIRIN 81 MG ECTAB PO SCH (09:04)
[2019-06-23] MEDS: AMLODIPINE BESYLATE 5 MG TAB PO SCH (09:04)
[2019-06-23] MEDS: HydrALAZINE TAB 50 MG TAB PO SCH ×2 (09:04→13:44)
[2019-06-23] MEDS: predniSONE 20 MG TAB PO SCH (09:04)
[2019-06-23] MEDS: FLUTICASONE/SALMETEROL (ADVAIR) 500/50 INH 14 PUFF INH SCH (09:04)
[2019-06-23] MEDS: FUROSEMIDE 40 MG in SYRINGE 0 ML IV SCH (09:04)
[2019-06-23] MEDS: LOSARTAN POTASSIUM 50 MG TAB PO SCH (09:04)
[2019-06-23] MEDS: APIXABAN 5 MG TABLET PO SCH (09:05)
[2019-06-23] MEDS: METOPROLOL TARTRATE 100 MG TAB PO SCH (09:05)
[2019-06-23] MEDS: INSULIN GLARGINE SOLOSTAR 100 UNITS/ML 3 ML PEN SQ SCH (09:06)
[2019-06-23] MEDS: INSULIN ASPART 100 UNITS/ML 3 ML PEN SC SCH ×2 (09:07→12:17)
--- NOTE | 2019-06-23 16:02 | Discharge Summary ---
Date of Service June 23, 2019 Admission HPI Per Admitting Provider 73yo F w/ hx of CHF who presents with CHF exacerbation. She reports that approx. 1 week ago, she noted that her left leg started to swell a bit more than usual. Usually it is similar in size to her right leg. However, when she starts to develop volume overload, she notes the left leg often gets larger than the right. She reports that she has been taking her Lasix 40mg PO BID as prescribed, but this did not seem to help her swelling. About 2 days ago, she reports that she started to feel shortness of breath particularly with exertion. She was concerned about increasing swelling and weight gain and decided to come to the ED for evaluation. She notes that she was being treated for a COPD exacerbation up to a few weeks ago. She was on prednisone and azithromycin until a few weeks ago per the patient. Principal Diagnosis Acute on chronic diastolic congestive heart failure New onset atrial fibrillation COPD exacerbation Chronic kidney disease stage III Acute kidney injury and chronic kidney disease Essential hypertension Diabetes mellitus type 2 insulin requiring Hypothyroidism Polymyalgia rheumatica History of CVA Morbid obesity Chronic respiratory failure with hypoxemia, uses intermittent nasal cannula 1 to 2 L Discharge Exam Physical examination General morbidly obese, appears to be comfortable, not in acute distress HEENT: Atraumatic , normocephalic /no jaundice /no pallor /anicteric /no dry mucous membrane /normal external ear inspection Neck: Supple /no swelling /central trach Heart: S1/S2 normal/regular rate and rhythm/no gallop /no rub /no murmur Lungs: Decreased air entry bilaterally, fairly clear to auscultation, bilateral scattered crackles Abdomen: Soft/nontender/no guarding/no rebound/no organomegaly/no pulsatile mass Musculoskeletal: No swelling/no edema/no tenderness/normal range of motion Neuro exam: Awake alert oriented 3/cranial nerves II through XII appear to be intact/sensation intact/moves all extremities/no abnormal movements Psychiatric evaluation: No depressed mood/normal affect Skin: No rash on exposed skin area/no erythema Extremity: Normal pulse/no pitting edema/no clubbing or cyanosis Endocrine/lymphatic: No obvious lymphadenopathy /no lymphedema Discharge Data Allergies Allergy/AdvReac Type Severity Reaction Status Date / Time LUCIANA Inhibitors AdvReac Intermediate COUGH Verified 06/16/19 16:59 Eremeyr-Gqh-Dxz Reductase AdvReac Intermediate MYALGIA Verified 06/16/19 16:59 Inhibitor doxycycline AdvReac Unknown Diarrhea Verified 06/16/19 16:59 clopidogrel AdvReac easy Verified 06/16/19 16:59 bruising, itching, chest and abd pain Consultations 06/16/19 16:50 ED Decision to Admit Stat 06/16/19 20:36 [facility] CHF Program Referral Routine Ordered Studies 06/16/19 19:30 US venous doppler LE LT Routine Hospital Course (1) Acute on chronic diastolic (congestive) heart failure: Patient was admitted to telemetry Her weight was taken daily Accurate I/os was calculated She was started on Lasix 40 mg IV twice a day Patient diuresed well and she her shortness of breath improved echo in 05/2019 showed EF of 55-60%. Appreciate to Yaritza Glover recommendation in regards of CHF consult Continue Eliquis 5 mg twice daily LLE Doppler : No evidence of deep nose thrombosis with extremity. Placed on fluid restriction.2 gr sodium diet. Currently off oxygen Instructed to use less salt in her diet (2) Atrial fibrillation, new onset: Patient was found to have new onset atrial fibrillation Currently rate controlled Started on Eliquis 5 mg twice daily (3) COPD (chronic obstructive pulmonary disease): Recently finished azithromycin and prednisone taper Received bronchodilators and oral prednisone while in the hospital, currently resolved (4) CKD (chronic kidney disease): Baseline Cr ~1.3-1.5, eGFR ~35. Cr just above normal on admission at 1.57; possibly dilutional Slight elevation of creatinine, to 1.7, possibly her new baseline Stable for discharge, was given a prescription to repeat renal function in 1 week (5) Hypertension: BP is 125/90 on admission. Continue home medications (6) Diabetes: A1c was 7.3% in 03/2019. Lowered home Lantus dose to 15-17 units daily from home 20 units Sliding scale insulin (7) Hypothyroid: TSH was 1.6 in 03/2019. No signs/symptoms of hypo-/hyperthyroidism. Continue home Synthroid 88 mcg (8) Polymyalgia rheumatica: Per prior PCP note, she is on prednisone 5-10mg PO daily for her PMR; however, she denied prednisone to me. Unclear whether she just meant a steroid burst for COPD or off steroids all together. Assess in morning and restart if needed (9) History of CVA (cerebrovascular accident): Continue ASA and ezetimibe (10) Chronic respiratory failure: Chronic hypoxic respiratory failure (11) CKD stage G3b/A1, GFR 30-44 and albumin creatinine ratio <30 mg/g: Patient has CKD stage 3. Baseline Cr ~1.3-1.5, eGFR ~35. Cr just above normal on admission at 1.57; possibly cardiorenal. - Monitor Cr - Renally-dose medications (12) DVT prophylaxis: DVT prophylaxis and elect Total Time Total Time Spent Total Time Spent (In Minutes): 35 minutes total time spent is greater than 50% in coordination of care (as documented) at patient's floor/unit and/or counseling patient/family discussion of care with nursing staff Discharge Plan Discharge Items Patient Disposition: Home - Home Health Services Reason For Visit: CHF EXACERBATION Discharge Diagnosis: Acute on chronic diastolic congestive heart failure New onset atrial fibrillation COPD exacerbation Chronic kidney disease stage III Acute kidney injury and chronic kidney disease Essential hypertension Diabetes mellitus type 2 insulin requiring Hypothyroidism Polymyalgia rheumatica History of CVA Morbid obesity Chronic respiratory failure with hypoxemia, uses intermittent nasal cannula 1 to 2 L Discharge Goals: Decrease discomfort and Improve function Activity: Resume your previous activity Lifting: Gradually increase as tolerated and No more than 5 pounds Bathing: No limitations Bathing Comment: With supervision and fall precaution Exercise/Sports: Gradually increase as tolerated Weightbearing: Full weightbearing Non-emergency contact: Primary Care Provider Call non-emergency contact if: you have any medication questions, your pain is concerning for you and your temperature is above 100.5 Follow-up/Referrals: Shubham Frausto III, MD [Primary Care Provider] - 06/30/19 1:45 pm (Please, follow up with Dr. Frausto on FridayJune 30 at 1:45 pm. *If you need to change this appointment, call the office at [phone].) Diet: Carb Consistent or DM2 and Low Sodium (2gm) Fluids: 1200ml (5 cups) Other Ambulatory Orders: Basic Metabolic Panel (Routine) Timeframe: 1 Week Facility: [facility] - Location: Administration / Operations Ordered By: Anthony Vital Addtl Provider Instructions: Take your weight daily Call your primary care physician if you gain more than 4 pounds 2 days in a row You were started on blood thinner for atrial fibrillation, do not take any [id number] pain medicine except Tylenol, you cannot take Motrin, Aleve, ibuprofen, naproxen Your Lasix dose has been changed to 1.5 tablet in the morning that 60 mg, and 1 tablet in the afternoon days 40 mg Prescriptions: New Desenex 2 % Powder 1 applic EXT BID Qty: 60 RF: 0 Eliquis 5 mg Tablet 5 mg PO BID Qty: 60 RF: 0 furosemide 40 mg tablet 40 mg PO QPM Qty: 30 RF: 0 Continued albuterol sulfate 2.5 mg/0.5 mL solution for nebulization 2.5 mg INHALATION QID PRN (Reason: Shortness Of Breath) Qty: 50 RF: 6 zolpidem 5 mg tablet 5 mg PO HS PRN (Reason: insomnia) Qty: 30 RF: 0 hydrocodone-acetaminophen 5-325 mg tablet 1 tab PO Q8H PRN (Reason: pain) Qty: 40 RF: 0 fluticasone propion-salmeterol [Advair Diskus] 500-50 mcg/dose blister with device 1 inh INHALATION BID Qty: 60 RF: 6 metoprolol tartrate [Lopressor] 100 mg Tablet 100 mg PO BID RF: 0 levothyroxine [Synthroid] 88 mcg Tablet 88 mcg PO QAM RF: 0 amlodipine 5 mg tablet 5 mg PO QAM RF: 0 aspirin [Adult Aspirin Regimen] 81 mg tablet,delayed release (DR/EC) 81 mg PO QAM RF: 0 ezetimibe [Zetia] 10 mg tablet 10 mg PO QAM RF: 0 losartan 50 mg tablet 50 mg PO BID RF: 0 hydralazine 50 mg tablet 50 mg PO TID RF: 0 Changed Lantus U-100 Insulin 100 unit/mL solution 15 unit SUBCUT DAILY Qty: 0 RF: 0 furosemide 40 mg Tablet 60 mg PO QAM Qty: 60 RF: 0 Stand-Alone Forms: [facility] Discharge Orders: Discharge Order (Routine); Ordered 06/23/19 Ordered By: Anthony Vital Admission Data Admit Date/Time: 06/16/19 17:39 Attending Provider: Anthony Montaño Admit Provider: Rodriguez Gross Primary Care Provider: Shubham Frausto III Other Providers: Rodriguez Gross ; Yaritza Glover Service: Telemetry Medical
== END 2019-06-23 16:39 | disposition home health service (06) | DRG 291 ==
LOC: ED 15:13 → 2N 17:39 → SUATTDRO 17:39 → 2N 18:10
DX: Z98.49 Cataract extraction status, unspecified eye; Z99.81 Dependence on supplemental oxygen; K21.9 Gastro-esophageal reflux disease without esophagitis; I50.33 Acute on chronic diastolic (congestive) heart failure; Z87.891 Personal history of nicotine dependence; Z79.82 Long term (current) use of aspirin; Z90.710 Acquired absence of both cervix and uterus; M35.3 Polymyalgia rheumatica; J44.9 Chronic obstructive pulmonary disease, unspecified; Z83.3 Family history of diabetes mellitus; I13.0 Hypertensive heart and chronic kidney disease with heart failure and stage 1 through stage 4 chronic kidney disease, or unspecified chronic kidney disease; J96.11 Chronic respiratory failure with hypoxia; E11.9 Type 2 diabetes mellitus without complications; I48.91 Unspecified atrial fibrillation; E21.3 Hyperparathyroidism, unspecified; E03.9 Hypothyroidism, unspecified; Z79.4 Long term (current) use of insulin; Z86.73 Personal history of transient ischemic attack (TIA), and cerebral infarction without residual deficits; N18.3 Chronic kidney disease, stage 3 (moderate)

== ENCOUNTER 2020-04-03 19:51 | Inpatient (IN) ==
[2020-04-03] MEDS ORDERED: PROCHLORPERAZINE 1 ML IV ONE (20:26)
[2020-04-03] MEDS ORDERED: DiphenhydrAMINE HCL 50 MG/ML VIAL IV STA (20:26)
[2020-04-03] MEDS ORDERED: FAMOTIDINE 20MG IV PUSH 20 MG/5 ML SYR IV STA (20:26)
[2020-04-03] MEDS ORDERED: ACETAMINOPHEN 1,000 MG/100 ML VIAL IV STA (20:28)
--- NOTE | 2020-04-03 20:44 | XRay Report ---
SINGLE VIEW CHEST CLINICAL HISTORY: Atypical chest pain. FINDINGS: An AP, portable, upright chest radiograph is compared to study dated 06/20/2019. The examinat ion is degraded by portable technique and patient rotation. The heart is enlarged noting atherosclero tic calcification of the thoracic aorta. The pulmonary vasculature is noncongested. Patchy airspace c onsolidation is seen in the right lung base and there is a small right pleural effusion. A calcified granuloma is again seen in the left upper lung. No pneumothorax is seen. The skeletal structures are osteopenic. The bony thorax is grossly intact. IMPRESSION: 1. There is right basilar consolidation and a small right pleural effusion. Correlate clinically for evidence of pneumonia/aspiration pneumonitis. Radiographic follow-up to resolution is recommended. 2. Cardiomegaly without radiographic evidence of congestive failure. ACT 112: Negative or not required by law. Electronically signed by: Antione Warren M.D. 04/03/2020 8:43 PM
[2020-04-03 20:47] LABS: Alanine Aminotransferase 16 U/L (12-78); Albumin Level 2.6 gm/dl (3.4-5.0); Aspartate Aminotransferase 9 U/L (15-37); BUN Creatinine Ratio 24.9 (10-20); Bilirubin Direct 0.3 mg/dl (0-0.2); Blood Urea Nitrogen 37 mg/dl (7-18); Calcium 9.8 mg/dl (8.5-10.1); Carbon Dioxide 29 mmol/L (21-32); Chloride 99 mmol/L (98-107); Creatinine Clr Calc Pharmacy 30.2 ml/min; Est GFR (African American) 40.1; Est GFR (Non-African American) 34.6; Glucose 132 mg/dl (70-99); Hematocrit (blood only) 25.5 % (37-47); Hemoglobin 6.7 g/dL (12.0-16.0); Lipase 120 U/L (73-393); Mean Corpuscular Hemoglobin 17.4 pg (25-34); Mean Corpuscular Hgb Conc 26.3 g/dL (32-36); Mean Corpuscular Volume 66.4 fL (80-100); Mean Platelet Volume 9.2 fL (7.4-10.4); Platelet Count 314 K/uL (130-400); Potassium 2.9 mmol/L (3.5-5.1); RDW Coefficient of Variation 20.4 % (11.5-14.5); RDW Standard Deviation 49.2 fL (36.4-46.3); Red Blood Count 3.84 M/uL (4.2-5.4); Sodium 137 mmol/L (136-145); White Blood Count 8.64 K/uL (4.8-10.8)
[2020-04-03 20:50] LABS: Albumin Globulin Ratio 0.7 (0.9-2); Alkaline Phosphatase 84 U/L (45-117); Bilirubin,Total 0.8 mg/dl (0.2-1); Globulin 3.8 gm/dl (2.5-4.0); NT Pro B Type Natriuretic Pept 5490 pg/ml (0-900); Phosphorus 2.5 mg/dl (2.5-4.9); Total Protein 6.4 gm/dl (6.4-8.2); Troponin I < 0.015 ng/ml (0-0.045)
[2020-04-03 20:51] LABS: INR 1.3 (0.9-1.1); Partial Thromboplastin Ratio 0.9; Partial Thromboplastin Time 25.1 Seconds (21.0-31.0); Prothrombin Time 13.7 Seconds (9.0-12.0)
[2020-04-03 21:09] LABS: Basophils # (auto) 0.02 K/uL (0-0.2); Basophils % (auto) 0.2 %; Eosinophils # (auto) 0.02 K/uL (0-0.5); Eosinophils % (auto) 0.2 %; Hypochromasia Present; Immature Granulocytes # (auto) 0.01 K/uL (0.00-0.02); Immature Granulocytes % (auto) 0.1 %; Lymphocytes # (auto) 0.85 K/uL (1.2-3.4); Lymphocytes % (auto) 9.8 %; Microcytosis Present; Monocytes # (auto) 0.66 K/uL (0.11-0.59); Monocytes % (auto) 7.6 %; Neutrophils # (auto) 7.08 K/uL (1.4-6.5); Neutrophils % (auto) 82.1 %; Polychromasia 1+; Stomatocytes 1+
--- NOTE | 2020-04-03 21:19 | Emergency Department Note ---
Impression & Plan Blood loss anemia, Hypokalemia, Abdominal ascites, Hematochezia, CKD (chronic kidney disease), Abdominal pain, Anasarca ED Provider Note NAME: AILYN PRATT AGE: 74 SEX: F ARRIVES VIA: Ambulance INFORMANT: Patient, ED PROVIDER(S): Vic Partida MD CHIEF COMPLAINT: Abdominal pain, weakness, hematochezia PLAN: Disposition: Admit MEDICAL DECISION MAKING: The patient is a pleasant 74-year-old woman with a past medical history of acute on chronic diastolic CHF, COPD on home O2, atrial fibrillation on Eliquis recent transition to palliative/hospice care in February 2020 who presents emergency department with persistent abdominal pain and diarrhea over the past week which the evolution of bloody diarrhea over the past couple of days. Denies fevers, cough, vomiting, urinary sx. On arrival the patient is acute on chronically ill-appearing afebrile with stable vital signs. She has generalized abdominal tenderness without guarding or rebound. EKG demonstrates Afib without acute ischemia. CXR with pleural effusion. WBC and platelets within normal limits. Hemoglobin and hematocrit 6.7/25.5 with last values in October 10.8/34.9. Potassium 2.9 with repletion provided. Creatinine 1.47 within patient's prior range of values. BUN 37 similar to prior range of values. Troponin negative/undetectable. BNP 5400 within prior range of values/mid range for the patient. I did discuss the case with the patient's daughter, Celestina who is the patient's POA and she does agree and want admission and transfusion for further evaluation. The patient who is mostly alert and oriented does appear limited in ability to explain for risks and benefits and therefore is limited in her medical decision-making capacity however she also agrees with the recommendations of her daughter. The patient was ordered for transfusion. CT of the abdomen pelvis performed (of note there was significant delay due to technical problem delaying transfer of images to [facility]), per preliminary [facility] report demonstrates moderate amount of ascites and otherwise no acute findings. Case was discussed [place] Castano, [facility] [place], who will evaluate the patient for admission. Triage Nursing notes reviewed and agree them. Additional history obtained from daughter, Celestina. History also obtained from the patient's hospice nurse, Cici Mcgee. Prior medical records reviewed Vital Signs: reviewed and remarkable for no significant abnormalities Differential diagnosis: Appendicitis, ovarian cyst, ovarian torsion, ectopic , TOA, PID, infections, diverticulitis, UTI, obstruction, mesenteric ischemia, aortic pathology, inflammatory bowel disease, renal colic, PUD, pancreatitis, biliary pathology, hernia, volvulus, constipation, as well as other pathologies. ER treatment provided: See below. Diagnostics interpreted by me: ECG: Atrial Fibrillation, 113 bpm, no ectopy, ST and TW abnormalities, no overt ST elevation. Cardiac Monitoring: An order for continuous cardiac monitoring was placed and demonstrated Atrial Fibrillation, 113 bpm, no ectopy. Laboratory studies: See below Imaging studies: [facility] Preliminary Findings Only See Final Report For Complete Findings CT ABDOMEN & PELVIS Without Contrast: Impression: There is moderate amount of ascites. Subcutaneous tissue edema seen predominantly in the anterior abdominal wall. Cholecystectomy There is moderate right-sided pleural effusion with right lung base subsegmental atelectasis Mild cardiomegaly. 1.3 cm dependent calcification seen in the pouch of Eddie. Radiologist: Gigi Espinal MD Study ready at 23:21 and initial results transmitted at 23:25 Consultation(s): Case was discussed with Dr. Castano, [facility] [place], who will evaluate the patient for admission. HPI: The patient is a pleasant 74-year-old woman with a past medical history of acute on chronic diastolic CHF, COPD on home O2, atrial fibrillation on Eliquis recent transition to palliative/hospice care in February 2020 who presents emergency department with persistent abdominal pain and diarrhea over the past week which the evolution of bloody diarrhea over the past couple of days. Denies fevers, cough, vomiting, urinary sx. ROS: See above HPI for pertinent positives & negatives. A total of 10 systems reviewed and were otherwise negative. PAST MEDICAL HISTORY:See Below PAST SURGICAL HISTORY:See Below FAMILY HISTORY:See Below SOCIAL HISTORY:See Below HOME MEDICATIONS:See Below ALLERGIES:See Below VITALS:See Below PHYSICAL EXAMINATION: GENERAL: Awake, alert, acute on chronically ill-appearing, in no distress HENT: Normocephalic, atraumatic. Oropharynx with dry mucous membranes and otherwise unremarkable. EYES: Normal conjunctiva. Sclera non-icteric. NECK: Supple. No nuchal rigidity. FROM. No JVD. RESPIRATORY: Diminished at bases otherwise, clear to auscultation. CARDIAC: Tachycardic rate, irregular rhythm. Extremities warm and well perfused. Pulses equal. ABDOMEN: Mildly distended but soft. +Anasarca. Generalized abdominal tenderness to palpation. No rebound or guarding. No masses. RECTAL: Deferred. MUSCULOSKELETAL: Chest examination reveals no tenderness. The back is symmetrical on inspection without obvious abnormality. There is no CVA tenderness to palpation. No joint edema. LOWER EXTREMITIES: Calves are equal size bilaterally and non-tender. 2+ BLE edema. No discoloration. NEURO: Normal sensorium. No sensory or motor deficits noted. SKIN: No rash or jaundice noted. Mild pallor. ED COURSE: Critical Care: I have personally spent greater than 65 minutes of critical care time in the direct management of this patient. This includes bedside care, interpretation of diagnostic studies, and testing, discussion with consultants, patient, and family members, and other required patient management activities. This 65 minutes is in excess of all separately billable procedures. 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 This was not seen on 04/[address] Pt started on Plavix. Degenerative disc disease cervical Diabetes on insulin Diabetes GERD (gastroesophageal reflux disease) GERD (gastroesophageal reflux disease) Hx of chest pain Hypercalcemia Hyperparathyroidism Hypertension Hypertension Hypothyroid Hypothyroid Polymyalgia rheumatica SOB (shortness of breath) (Acute) exertional Surgical History H/O rotator cuff surgery (Acute) left shoulder History of appendectomy History of cataract surgery History of colonoscopy History of hysterectomy History of tooth extraction Hx of cholecystectomy Family History Mother Family history of diabetes mellitus Brother Family history of diabetes mellitus Social History Preferred Language: Citizen Of [place] Communication Ability: Effective Visual Impairment: No Limitations Quantity Surveyor Required: No Beliefs That Will Affect Care: None marital status: Current Living Situation: Family Feels Safe at Home: Yes Smoking Status: Never smoker Tobacco Type: cigarettes ; Age Started Using Tobacco: 17 ; Age Quit Using Tobacco: 55 ; packs per day: 0.5 ; Cigarettes Per Day: 5-10 ; Second Hand Exposure: No ; Hx Alcohol Use: No Hx Substance Use: No Dental Care, Regularly: No Seatbelt Use: always Sunscreen Use: No Allergies Allergies Allergy/AdvReac Type Severity Reaction Status Date / Time LUCIANA Inhibitors AdvReac Intermediate COUGH Verified 04/03/20 20:47 [id number] Reductase AdvReac Intermediate MYALGIA Verified 04/03/20 20:47 Inhibitor doxycycline AdvReac Unknown Diarrhea Verified 04/03/20 20:47 clopidogrel AdvReac easy Verified 04/03/20 20:47 bruising, itching, chest and abd pain Home Meds Home Medications Medication Instructions Recorded Confirmed losartan 50 mg PO BID 03/11/19 04/03/20 aspirin [Adult Aspirin Regimen] 81 mg PO QAM 06/16/19 04/03/20 furosemide 40 mg PO DAILY 04/03/20 04/03/20 hydralazine 50 mg PO TID 04/03/20 04/03/20 zolpidem 10 mg PO HS 04/03/20 04/03/20 Previous Rx's Medication Instructions Recorded albuterol sulfate 2.5 mg/0.5 mL 2.5 mg INHALATION QID PRN #50 ea 04/05/19 solution for nebulization Lantus U-100 Insulin 15 unit SUBCUT DAILY #0 ml 06/23/19 miconazole nitrate [Desenex] 1 applic EXT BID #60 g 06/23/19 pen needle, diabetic 31 gauge x #100 ea 08/06/1903/04" OneTouch Verio test strips #300 ea NS 10/28/19 ezetimibe 10 mg tablet 10 mg PO DAILY #30 tab 11/16/19 cyclobenzaprine 10 mg tablet 10 mg PO TID PRN #30 tab 01/14/20 levothyroxine 88 mcg tablet 88 mcg PO DAILY #30 tab 01/26/20 metoprolol tartrate 100 mg tablet 100 mg PO BID #60 tab 01/26/20 apixaban 5 mg tablet 5 mg PO BID #60 tab 02/15/20 nitroglycerin 0.4 mg sublingual 0.4 mg SL Q5M PRN #25 tab 02/24/20 tablet nebulizer accessories #1 ea 02/28/20 potassium chloride 20 mEq 40 meq PO DAILY #30 tab 03/06/20 tablet,extended release amlodipine 5 mg tablet 5 mg PO DAILY #90 tab 03/16/20 hydrocodone 5 mg-acetaminophen 325 1 tab PO Q8H PRN #40 tab 03/27/20 mg tablet Results & Data (ED) Vital Signs Vital Signs - 24 hr 04/03/20 20:25 04/03/20 20:37 04/03/20 22:00 Temperature 36.9 C Temperature Source Oral Pulse Rate 108 H 108 H Pulse Rate [Right Brachial] 119 H Pulse Rhythm Irregular Pulse Rhythm [Right Brachial] Irregular Pulse Strength Normal Respiratory Rate 18 18 18 Respiratory Depth Normal Blood Pressure 163/82 H Blood Pressure [Right Arm] 138/78 Blood Pressure Mean 109 Blood Pressure Mean [Right Arm] 98 Pulse Oximetry 100 100 99 Oxygen Delivery Method Nasal Cannula Nasal Cannula Nasal Cannula Oxygen Flow Rate 2 2 2 Sepsis Recent Fever Within 48 Hours No Sepsis Action Taken by Nursing No Action Required 04/04/20 00:00 Temperature Temperature Source Pulse Rate Pulse Rate [Right Brachial] Pulse Rhythm Pulse Rhythm [Right Brachial] Pulse Strength Respiratory Rate Respiratory Depth Blood Pressure Blood Pressure [Right Arm] 130/78 Blood Pressure Mean Blood Pressure Mean [Right Arm] 95 Pulse Oximetry Oxygen Delivery Method Oxygen Flow Rate Sepsis Recent Fever Within 48 Hours Sepsis Action Taken by Nursing Laboratory Data Attestation: I reviewed the patient's lab results. Result diagrams: 04/03/20 20:00 04/03/20 20:00 Lab Results 04/03/20 04/03/20 04/03/20 Range/Units 20:00 20:00 20:00 WBC 8.64 (4.8-10.8) K/uL RBC 3.84 L (4.2-5.4) M/uL Hgb 6.7 L* (12.0-16.0) g/dL Hct 25.5 L (37-47) % MCV 66.4 L (80-100) fL MCH 17.4 L (25-34) pg MCHC 26.3 L (32-36) g/dL RDW Std Deviation 49.2 H (36.4-46.3) fL RDW Coeff of Stacey 20.4 H (11.5-14.5) % Plt Count 314 (130-400) K/uL MPV 9.2 (7.4-10.4) fL Immature Gran % (Auto) 0.1 % Neut % (Auto) 82.1 % Lymph % (Auto) 9.8 % [place] % (Auto) 7.6 % Eos % (Auto) 0.2 % Baso % (Auto) 0.2 % Immature Gran # (Auto) 0.01 (0.00-0.02) K/uL Neut # (Auto) 7.08 H (1.4-6.5) K/uL Lymph # (Auto) 0.85 L (1.2-3.4) K/uL [place] # (Auto) 0.66 H (0.11-0.59) K/uL Eos # (Auto) 0.02 (0-0.5) K/uL Baso # (Auto) 0.02 (0-0.2) K/uL Polychromasia 1+ Hypochromasia Present Microcytosis Present Stomatocytes 1+ PT 13.7 H (9.0-12.0) Seconds INR 1.3 H (0.9-1.1) APTT 25.1 (21.0-31.0) Seconds PTT Ratio 0.9 Sodium 137 (136-145) mmol/L Potassium 2.9 L (3.5-5.1) mmol/L Chloride 99 (98-107) mmol/L Carbon Dioxide 29 (21-32) mmol/L Anion Gap 9.0 (3-11) BUN 37 H (7-18) mg/dl Creatinine 1.47 H (0.6-1.2) mg/dl Est Cr Clr Drug Dosing 30.2 ml/min Est GFR ( Amer) 40.1 Est GFR (Non-Af Amer) 34.6 BUN/Creatinine Ratio 24.9 H (10-20) Glucose 132 H (70-99) mg/dl Calcium 9.8 (8.5-10.1) mg/dl Phosphorus 2.5 (2.5-4.9) mg/dl Magnesium 2.0 (1.8-2.4) mg/dl Total Bilirubin 0.8 (0.2-1) mg/dl Direct Bilirubin 0.3 H (0-0.2) mg/dl AST 9 L (15-37) U/L ALT 16 (12-78) U/L Alkaline Phosphatase 84 (45-117) U/L Troponin I < 0.015 (0-0.045) ng/ml NT-Pro-B Natriuret Pep 5490 H (0-900) pg/ml Total Protein 6.4 (6.4-8.2) gm/dl Albumin 2.6 L (3.4-5.0) gm/dl Globulin 3.8 (2.5-4.0) gm/dl Albumin/Globulin Ratio 0.7 L (0.9-2) Lipase 120 (73-393) U/L Blood Type Blood Type Recheck Antibody Screen Crossmatch 04/03/20 04/03/20 Range/Units 20:41 22:35 WBC (4.8-10.8) K/uL RBC (4.2-5.4) M/uL Hgb (12.0-16.0) g/dL Hct (37-47) % MCV (80-100) fL MCH (25-34) pg MCHC (32-36) g/dL RDW Std Deviation (36.4-46.3) fL RDW Coeff of Stacey (11.5-14.5) % Plt Count (130-400) K/uL MPV (7.4-10.4) fL Immature Gran % (Auto) % Neut % (Auto) % Lymph % (Auto) % [place] % (Auto) % Eos % (Auto) % Baso % (Auto) % Immature Gran # (Auto) (0.00-0.02) K/uL Neut # (Auto) (1.4-6.5) K/uL Lymph # (Auto) (1.2-3.4) K/uL Berrien # (Auto) (0.11-0.59) K/uL Eos # (Auto) (0-0.5) K/uL Baso # (Auto) (0-0.2) K/uL Polychromasia Hypochromasia Microcytosis Stomatocytes PT (9.0-12.0) Seconds INR (0.9-1.1) APTT (21.0-31.0) Seconds PTT Ratio Sodium (136-145) mmol/L Potassium (3.5-5.1) mmol/L Chloride (98-107) mmol/L Carbon Dioxide (21-32) mmol/L Anion Gap (3-11) BUN (7-18) mg/dl Creatinine (0.6-1.2) mg/dl Est Cr Clr Drug Dosing ml/min Est GFR ( Amer) Est GFR (Non-Af Amer) BUN/Creatinine Ratio (10-20) Glucose (70-99) mg/dl Calcium (8.5-10.1) mg/dl Phosphorus (2.5-4.9) mg/dl Magnesium (1.8-2.4) mg/dl Total Bilirubin (0.2-1) mg/dl Direct Bilirubin (0-0.2) mg/dl AST (15-37) U/L ALT (12-78) U/L Alkaline Phosphatase (45-117) U/L Troponin I (0-0.045) ng/ml NT-Pro-B Natriuret Pep (0-900) pg/ml Total Protein (6.4-8.2) gm/dl Albumin (3.4-5.0) gm/dl Globulin (2.5-4.0) gm/dl Albumin/Globulin Ratio (0.9-2) Lipase (73-393) U/L Blood Type A Positive Blood Type Recheck A Positive Antibody Screen NEGATIVE Crossmatch See Detail Administered Medications Furosemide 40 mg/ Albumin (Human) 54 mls @ 54 mls/hr IV Q6H JOSE Stop: 04/04/20 07:29 Last Infusion: 04/04/20 02:11 Dose: 0 mls/hr Documented by: [id number] Admin: 04/04/20 01:21 Dose: 54 mls/hr Documented by: [id number] Zolpidem Tartrate (Ambien) 10 mg PO HS PRN PRN Reason: Sleep Stop: 05/04/20 02:25 Last Admin: 04/04/20 02:35 Dose: 10 mg Documented by: [id number] Discontinued Medications Diphenhydramine HCl (Benadryl) 12.5 mg IV NOW STA Stop: 04/03/20 20:27 Last Admin: 04/03/20 21:12 Dose: 12.5 mg Documented by: [id number] Famotidine (Pepcid 20mg Iv Push) 20 mg in 5 mls @ 2.5 mls/min IV NOW STA Stop: 04/03/20 20:27 Last Admin: 04/03/20 21:13 Dose: 2.5 mls/min Documented by: [id number] Prochlorperazine (Compazine) 1 mls @ 1 mls/min IV ONE ONE Stop: 04/03/20 20:27 Last Admin: 04/03/20 21:13 Dose: 1 mls/min Documented by: [id number] Acetaminophen (Ofirmev) 1,000 mg in 100 mls @ 400 mls/hr IV NOW STA Stop: 04/03/20 20:42 Last Infusion: 04/03/20 21:40 Dose: 0 mls/hr Documented by: [id number] Admin: 04/03/20 21:14 Dose: 400 mls/hr Documented by: [id number] Potassium Chloride (K Sam / Wtr) 10 meq in 100 mls @ 100 mls/hr IV Q1H JOSE Stop: 04/03/20 23:44 Last Infusion: 04/04/20 02:13 Dose: 0 mls/hr Documented by: [id number] Admin: 04/03/20 23:44 Dose: 100 mls/hr Documented by: [id number] Infusion: 04/03/20 23:22 Dose: 100 mls/hr Documented by: [id number] Admin: 04/03/20 22:22 Dose: 100 mls/hr Documented by: [id number] Sodium Chloride (Nss) 250 mls @ 15 mls/hr IV .[id number] PRN PRN Reason: For Transfusion Stop: 04/04/20 08:13 Last Infusion: 04/04/20 04:59 Dose: 0 mls/hr Documented by: [id number] Admin: 04/03/20 22:22 Dose: 15 mls/hr Documented by: [id number] Potassium Chloride (Klor-Con M20) 40 meq PO NOW STA Stop: 04/04/20 02:07 Last Admin: 04/04/20 02:35 Dose: 40 meq Documented by: [id number] Blood Pressure Blood Pressure Findings: Normal blood pressure Discharge Plan Visit Data *Final* Discharge Date/Time: 04/04/20 02:00 Chief Complaint: GI Assessment ED Provider: Maggy Francisco Discharge Problem: Blood loss anemia, Hypokalemia, Abdominal ascites, Hematochezia, CKD (chronic kidney disease), Abdominal pain, Anasarca Patient Disposition: Admitted As Inpatient Discharge Instructions Interventions: ED Discharge Assessment Last Done: 04/04/20 02:00
[2020-04-03] MEDS ORDERED: SODIUM CHLORIDE 0.9% 250 ML IV PRN (22:13)
[2020-04-03] MEDS: POTASSIUM CHLORIDE / WTR 10 MEQ/100 ML PLCT IV SCH ×2 (22:22→23:44)
--- NOTE | 2020-04-04 00:37 | History & Physical Report ---
Date of Service April 04, 2020 Assessment & Plan (1) Blood loss anemia: 74 yo F PMHx HFpEF on 2 L nasal cannula baseline, A. fib on Eliquis and metoprolol, HTN, DM 2, CKD stage III, CVA, COPD admitted for blood loss anemia and acute on chronic CHF. Symptomatic blood loss anemia: - Pt with Hgb 6.7 on arrival, hypochromic microcytic anemia with complaints of 1 to 2 days of bright red blood in her stools. -Suggestive of acute blood loss anemia in the setting of anemia of chronic disease at baseline with most recent hemoglobin ~10 four months ago. -1 unit PRBCs ordered, to transfuse and will get CBC following. May need to transfuse further units depending on H/H. -Patient is a hospice/palliative care patient, so likely only symptomatic management. Have placed palliative care consult. If patient and patient's daughter would like further evaluation may require EGD/colonoscopy by GI. -Patient with slight tachycardia to 110s on admission, likely due to blood loss. - Will hold patient's aspirin and Eliquis at this time in the setting of acute bleed Acute on chronic diastolic HF: - Pt with a history of HFpEF with most recent echo in February 2019 showing EF 55 to 60% with elevated right ventricular pressure. - On admission patient is subjectively feeling short of breath with physical exam findings suggestive of fluid overload, CTAP shows moderate right-sided pleural effusion which could account for patient's symptoms of shortness of breath. She is currently on her baseline oxygen requirement, 2 L nasal cannula and saturating well. Shortness of breath could also be multifactorial due to significant anemia. - We will continue patient's home Lasix 40 mg p.o. once daily. Given signs of fluid overload on exam we will give albumin with Lasix 40 mg IV every 6 hours, 2 bags and reevaluate symptoms. - Could consider thoracentesis, however patient with active bleeding and on Eliquis at home most recently taken this morning. Patient is currently hospice/palliative care but may be reasonable for symptomatic management. - Creatinine of 1.47 is actually less than her most recent baseline of about 1.8. proBNP of 5490 appears to be patient's baseline as well. - Will hold patient's hydralazine and amlodipine in the setting of fluid overload. -Diabetic, low-salt diet with fluid restriction 1500 mLs. Hypokalemia: - On admit patient's calcium was 2.9, given K riders 20 M EQ in the ED, but patient reports significant burning and is able to tolerate p.o. at this time. - Will give KCl PO 40 now, continue home KCL 40 meq PO daily. - Repeat BMP morning. Paroxysmal AFib: - History of A. fib on Eliquis and metoprolol at home. Patient is without chest pain, palpitations at this time. - Holding Eliquis for GIB. - Continue metoprolol 100mg PO BID. - continuous cardiac monitoring. DM2: - SSI with glycemic consult. HTN with Hx CKD stage III: -Continue home losartan, metoprolol, Lasix. -Hold hydralazine and amlodipine in the setting of fluid overload. CAD: -Hold aspirin in the setting of acute bleed. -Continue metoprolol, losartan. Code Status: FULL CODE FEN/GI: DM2, low sodium diet, fluid restriction 1500mL. Replete K as above DVT ppx: Medical prophylaxis contraindicated in the setting of acute bleed, SCDs Dispo: med/surg with telemetry, for 1U PRBCs and albumin with Lasix, for palliative care consult tomorrow for goals of care (2) Acute on chronic diastolic (congestive) heart failure: (3) Ascites: (4) Hypokalemia: (5) Uncontrolled type 2 diabetes mellitus with insulin therapy: History of Present Illness Chief Complaint: abdominal pain, fatigue Primary Care Provider: Shubham Frausto MD 74 yo F PMHx HFpEF on 2 L nasal cannula baseline, A. fib on Eliquis and metoprolol, HTN, DM 2, CKD stage III, CVA, COPD presents to the ED with several days of abdominal pain and diarrhea, over the last 1 to 2 days diarrhea has turned bloody and patient has had associated weakness, fatigue, shortness of breath. No nausea or vomiting, chest pain, fevers or chills,, hematuria, headaches, dizziness. No recent illnesses, no sick contacts. In ED lab work showed hemoglobin 6.7 with a microcytic anemia, potassium 2.9, creatinine 1.47, pro BN [id number], albumin 2.6. Patient given famotidine, Compazine, KCl 20 mEq, and ordered 1 unit PRBCs. ED physician spoke with patient's daughter who is her medical decision-maker, patient was recently made hospice/palliative care, however patient's daughter desires admission for symptomatic management. Hospital team consulted for admission. Allergies Allergy/AdvReac Type Severity Reaction Status Date / Time LUCIANA Inhibitors AdvReac Intermediate COUGH Verified 04/03/20 20:47 Ckogesj-Dbp-Fbd Reductase AdvReac Intermediate MYALGIA Verified 04/03/20 20:47 Inhibitor doxycycline AdvReac Unknown Diarrhea Verified 04/03/20 20:47 clopidogrel AdvReac easy Verified 04/03/20 20:47 bruising, itching, chest and abd pain Home Medications Home Medications Medication Instructions Recorded Confirmed Type losartan 50 mg PO BID 03/11/19 04/03/20 History albuterol sulfate 2.5 mg/0.5 mL 2.5 mg INHALATION QID PRN #50 ea 04/05/19 04/03/20 Rx solution for nebulization aspirin [Adult Aspirin Regimen] 81 mg PO QAM 06/16/19 04/03/20 History Lantus U-100 Insulin 15 unit SUBCUT DAILY #0 ml 06/23/19 04/03/20 Rx miconazole nitrate [Desenex] 1 applic EXT BID #60 g 06/23/19 04/03/20 Rx pen needle, diabetic 31 gauge x #100 ea 08/06/19 03/27/20 Rx 5/16" OneTouch Verio test strips #300 ea NS 10/28/19 03/27/20 Rx ezetimibe 10 mg tablet 10 mg PO DAILY #30 tab 11/16/19 04/03/20 Rx cyclobenzaprine 10 mg tablet 10 mg PO TID PRN #30 tab 01/14/20 04/03/20 Rx levothyroxine 88 mcg tablet 88 mcg PO DAILY #30 tab 01/26/20 04/03/20 Rx metoprolol tartrate 100 mg tablet 100 mg PO BID #60 tab 01/26/20 04/03/20 Rx apixaban 5 mg tablet 5 mg PO BID #60 tab 02/15/20 04/03/20 Rx nitroglycerin 0.4 mg sublingual 0.4 mg SL Q5M PRN #25 tab 02/24/20 04/03/20 Rx tablet nebulizer accessories #1 ea 02/28/20 03/27/20 Rx potassium chloride 20 mEq 40 meq PO DAILY #30 tab 03/06/20 04/03/20 Rx tablet,extended release amlodipine 5 mg tablet 5 mg PO DAILY #90 tab 03/16/20 04/03/20 Rx hydrocodone 5 mg-acetaminophen 325 1 tab PO Q8H PRN #40 tab 03/27/20 04/03/20 Rx mg tablet furosemide 40 mg PO DAILY 04/03/20 04/03/20 History hydralazine 50 mg PO TID 04/03/20 04/03/20 History zolpidem 10 mg PO HS 04/03/20 04/03/20 History Past Med/Surg History Medical History Carotid artery stenosis > 70% stenosis in VAN 50-69% stenosis in LICA >50% stenosis in both ECAs *SURGEON AWARE CKD (chronic kidney disease) Congestive heart failure Chronic diastolic, EF 65-70% COPD (chronic obstructive pulmonary disease) COPD (chronic obstructive pulmonary disease) (Chronic) CVA (cerebral vascular accident) Old occipital lobe infarct noted on 07/21/18 brain MRI (MRI was prompted by abnormal physical exam by block engraver). This was not seen on 04/[address] Pt started on Plavix. Degenerative disc disease cervical Diabetes on insulin Diabetes GERD (gastroesophageal reflux disease) GERD (gastroesophageal reflux disease) Hx of chest pain Hypercalcemia Hyperparathyroidism Hypertension Hypertension Hypothyroid Hypothyroid Polymyalgia rheumatica SOB (shortness of breath) (Acute) exertional Surgical History H/O rotator cuff surgery (Acute) left shoulder History of appendectomy History of cataract surgery History of colonoscopy History of hysterectomy History of tooth extraction Hx of cholecystectomy Family History Mother Family history of diabetes mellitus Brother Family history of diabetes mellitus Social History Preferred Language: German Communication Ability: Effective Visual Impairment: No Limitations 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 Beliefs That Will Affect Care: None marital status: Current Living Situation: Family Feels Safe at Home: Yes Smoking Status: Never smoker Tobacco Type: cigarettes ; Age Started Using Tobacco: 17 ; Age Quit Using Tobacco: 55 ; packs per day: 0.5 ; Cigarettes Per Day: 5-10 ; Second Hand Exposure: No ; Hx Alcohol Use: No Hx Substance Use: No Dental Care, Regularly: No Seatbelt Use: always Sunscreen Use: No Review of Systems Review of Systems: All systems reviewed & are unremarkable except as noted in HPI & below Constitutional: + malaise; no fever and no chills Respiratory: + dyspnea (is on 2LNC at baseline, some increased SOB last several days); no cough and no wheezing Cardiovascular: + edema (chronic in legs, not worse per patient); no chest pain and no palpitations Gastrointestinal: + abdominal pain, + diarrhea/loose stools and + blood in stools; no nausea, no vomiting and no constipation Genitourinary: no dysuria and no hematuria Integumentary: + rash Physical Exam Constitutional: + ill appearing and + obese Eyes: PERRL, conjunctivae normal, anicteric sclerae ENMT: external ear and nose normal, oropharynx normal Neck: normal visual inspection Respiratory: no cough Auscultation: + diminished lung sounds (bilateral) and + crackles (bilateral); no rales, no rhonchi and no wheezes Cardiovascular: Heart rate irregularly irregular, no JVD, left lower extremity with 2+ pitting edema, right lower extremity with trace edema Gastrointestinal (Abdomen): Inspection/Auscultation: + abdomen distended and normal bowel sounds Percussion/Palpation: + abdomen tender (To palpation, diffuse but worst in epigastric area) and abdomen soft; no guarding Musculoskeletal: no cyanosis or clubbing, extremities motor strength 5/5 Skin: no rashes, warm and dry Neurologic: PERRL, EOMI, accommodation nl, no face palsy, no dysarthria moves all extremities; no focal motor deficits Psychiatric: A+Ox3, euthymic affect Results & Data Results & Data ([facility]) Vital Signs (Past 12 Hours) Vital Signs Temp Pulse Resp BP Pulse Ox 04/03/20 20:37 108 H 18 100 04/03/20 20:25 36.9 C 108 H 18 163/82 H 100 Code Status & VTE Plan VTE Prophylaxis Plan VTE Prophylaxis will be ordered: Yes Supervising Physician Co-Signing Physician Notes Attending addendum: I have physically seen this patient, have supervised the medical residents activities, and agree with the H&P unless as otherwise noted. Assessment and Plan: Symptomatic anemia- Hemoglobin 6.7 upon arrival. Transfuse 2 units PRBCs tonight Acute blood loss on top of chronic. Hold aspirin and Eliquis. Pantoprazole IV Will reverse if continued bleeding. N.p.o. IV fluids Consult gastroenterology Paroxysmal atrial fibrillation/acute on chronic diastolic CHF- Albumin 25 g with Lasix 40 mg IV every 6 hours x2. Holding Eliquis and aspirin as noted above. Continue metoprolol tartrate 100 mg p.o. twice daily. If unable to tolerate p.o., change to IV Lopressor Optimize potassium as noted. Diabetes mellitus- Placed on Accu-Cheks with NovoLog coverage. Remaining orders and notations as noted. Resident Activity Tracking Resident Involvement: Resident Care Provided Care Provided: Adult Hospital Medicine
[2020-04-04] MEDS: ALBUMIN 25% 50 ML with FUROSEMIDE 40 MG IV SCH ×2 (01:21→06:14)
[2020-04-04] MEDS ORDERED: GLUCAGON FOR INJ 1 MG VIAL SQ PRN (02:06)
[2020-04-04] MEDS ORDERED: CARBOHYDRATES FOR HYPOGLYCEMIA PO PRN (02:06)
[2020-04-04] MEDS ORDERED: ONDANSETRON INJ 2 MG/ML 2 ML VIAL IV PRN (02:06)
[2020-04-04] MEDS ORDERED: ACETAMINOPHEN 325 MG TAB PO PRN (02:06)
[2020-04-04] MEDS ORDERED: POTASSIUM CHLORIDE 20 MEQ TABCR PO STA (02:06)
[2020-04-04] MEDS ORDERED: NITROGLYCERIN SL 0.4 MG/TAB TAB SL PRN (02:06)
[2020-04-04] MEDS ORDERED: ALBUTEROL 0.5% NEB SOLN 2.5 MG/0.5 ML VIAL INH PRN (02:06)
[2020-04-04] MEDS ORDERED: GLUCOSE 10 TABS/TUBE PO PRN (02:06)
[2020-04-04] MEDS ORDERED: DEXTROSE 50% 50 ML SYRINGE IV PRN (02:06)
[2020-04-04] MEDS ORDERED: GLUCOSE 40% GEL 15 GM TUBE PO PRN (02:06)
[2020-04-04] MEDS ORDERED: PHARMACY GLYCEMIC MGMT CONSULT PRN (02:14)
[2020-04-04] MEDS: ZOLPIDEM TARTRATE 10 MG TAB PO PRN ×2 (02:35→23:23)
[2020-04-04 06:05] LABS: Hemoglobin 7.6 g/dL (12.0-16.0); Mean Corpuscular Hemoglobin 18.4 pg (25-34); Mean Corpuscular Hgb Conc 27.1 g/dL (32-36); Mean Corpuscular Volume 67.8 fL (80-100); Mean Platelet Volume 9.2 fL (7.4-10.4); Nucleated RBC # (auto) 0.03 K/uL (0-0); Nucleated RBC % (auto) 0.3 %; Platelet Count 266 K/uL (130-400); RDW Coefficient of Variation 21.3 % (11.5-14.5); RDW Standard Deviation 52.6 fL (36.4-46.3); Red Blood Count 4.13 M/uL (4.2-5.4); White Blood Count 8.71 K/uL (4.8-10.8)
[2020-04-04] MEDS: LEVOTHYROXINE SODIUM 88 MCG TABLET PO SCH (06:14)
[2020-04-04 06:37] LABS: Calcium 9.1 mg/dl (8.5-10.1); Creatinine Clr Calc Pharmacy 29.2 ml/min; Est GFR (African American) 37.3; Est GFR (Non-African American) 32.2; Potassium 3.1 mmol/L (3.5-5.1)
[2020-04-04 06:54] LABS: Estimated Average Glucose 151 mg/dl; Hemoglobin A1C 6.9 % (4.5-5.6)
--- NOTE | 2020-04-04 07:01 | CT Scan Report ---
CT abd pelvis wo con CT DOSE: 1035.30 mGy.cm HISTORY: Pain abd pain, hematochezia TECHNIQUE: Multiaxial CT images of the abdomen and pelvis were performed without contrast. A dose lo wering technique was utilized adhering to the principles of ALARA. COMPARISON STUDY: None. FINDINGS: Right pleural effusion. Probable superimposed right basilar infiltrate. Left lung is clear. Moderate abdominal and pelvic ascites. Moderate hepatic cirrhotic change. Prior cholecystectomy. Kidneys negative for hydronephrosis. Nonobstructive bowel pattern. Moderate body wall anasarca. Calcification within the pelvic cul-de-sac . IMPRESSION: 1. Abdominal and pelvic ascites. 2. Nonobstructive bowel pattern. 3. Right pleural effusion with a superimposed right basilar infiltrate. 4. Moderate body wall anasarca. ACT 112: Negative or not required by law. The above report was generated using voice recognition software. It may contain grammatical, syntax or spelling errors. Electronically signed by: Filemon Solorio M.D. 04/04/2020 7:00 AM
--- NOTE | 2020-04-04 07:14 | Electrocardiogram Report ---
Test Reason : Blood Pressure : / mmHG Vent. Rate : 113 BPM Atrial Rate : 144 BPM P-R Int : 000 ms QRS Dur : 074 ms QT Int : 308 ms P-R-T Axes : 000 080 218 degrees QTc Int : 422 ms Poor data quality, interpretation may be adversely affected Atrial fibrillation with rapid ventricular response Low voltage QRS Abnormal ECG Confirmed by Sidney Aleman ([id number]) on 04/04/2020 7:14:19 AM Referred By: REFERRED SELF Confirmed By:Ronaldo Aleman
[2020-04-04 07:15] LABS: Anisocytosis Present; Basophils # (auto) 0.03 K/uL (0-0.2); Basophils % (auto) 0.3 %; Eosinophils # (auto) 0.11 K/uL (0-0.5); Eosinophils % (auto) 1.3 %; Hypochromasia Present; Immature Granulocytes # (auto) 0.01 K/uL (0.00-0.02); Immature Granulocytes % (auto) 0.1 %; Lymphocytes # (auto) 0.77 K/uL (1.2-3.4); Lymphocytes % (auto) 8.8 %; Microcytosis Present; Monocytes # (auto) 0.96 K/uL (0.11-0.59); Neutrophils # (auto) 6.83 K/uL (1.4-6.5); Neutrophils % (auto) 78.5 %; Polychromasia 1+
[2020-04-04] MEDS: POTASSIUM CHLORIDE 20 MEQ TABCR PO SCH (08:00)
[2020-04-04] MEDS: METOPROLOL TARTRATE 100 MG TAB PO SCH ×2 (08:01→20:56)
[2020-04-04] MEDS: LOSARTAN POTASSIUM 50 MG TAB PO SCH ×2 (08:05→20:56)
[2020-04-04] MEDS: INSULIN ASPART 100 UNITS/ML 3 ML PEN SC SCH ×4 (08:27→21:02)
[2020-04-04] MEDS: INSULIN GLARGINE SOLOSTAR 100 UNITS/ML 3 ML PEN SC SCH (08:29)
[2020-04-04] MEDS ORDERED: FUROSEMIDE 40 MG TAB PO SCH (09:00)
[2020-04-04] MEDS ORDERED: SODIUM CHLORIDE 0.9% 250 ML IV PRN (09:55)
--- NOTE | 2020-04-04 10:11 | Hospitalist Progress Note ---
Date of Service April 04, 2020 Assessment & Plan (1) Blood loss anemia: 74 yo F PMHx HFpEF on 2 L nasal cannula baseline, A. fib on Eliquis and metoprolol, HTN, DM 2, CKD stage III, CVA, COPD admitted for blood loss anemia and acute on chronic CHF. Symptomatic blood loss anemia: Will transfuse second unit of blood. will also place on lasix IV BID. Also replace potassium HR remains elevated as well. Despite being on hospice, will continue to treat. In PM, patient remained tachycardic after receiving PRBC. will place patient on diltiazem drip and transfer to PCU. Also gave dose of dig. Acute on chronic diastolic HF: - Pt with a history of HFpEF with most recent echo in February 2019 showing EF 55 to 60% with elevated right ventricular pressure. - Will hold patient's hydralazine and amlodipine in the setting of fluid overload. -Diabetic, low-salt diet with fluid restriction 1500 mLs. Hypokalemia: - On admit patient's calcium was 2.9, given K riders 20 M EQ in the ED, but patient reports significant burning and is able to tolerate p.o. at this time. - Will give KCl PO 40 now, continue home KCL 40 meq PO daily. - Repeat BMP morning. Paroxysmal AFib: - History of A. fib on Eliquis and metoprolol at home. Patient is without chest pain, palpitations at this time. - Holding Eliquis for GIB. - Continue metoprolol 100mg PO BID. - continuous cardiac monitoring. DM2: - SSI with glycemic consult. HTN with Hx CKD stage III: -Continue home losartan, metoprolol, Lasix. -Hold hydralazine and amlodipine in the setting of fluid overload. CAD: -Hold aspirin in the setting of acute bleed. -Continue metoprolol, losartan. Code Status: DNR/DNI FEN/GI: DM2, low sodium diet, fluid restriction 1500mL. Replete K as above DVT ppx: Medical prophylaxis contraindicated in the setting of acute bleed, SCDs (2) Acute on chronic diastolic (congestive) heart failure: (3) Ascites: (4) Hypokalemia: (5) Uncontrolled type 2 diabetes mellitus with insulin therapy: Admission and Anticipated Discharge Date Admission Date: April 04, 2020 Subjective Patient appeas to be more confused this morning. Does not strongly verbalize her answers. Mumbles them. She does mention that she is in the hospital. In the afternoon, patient is more awake. She was complaining of chest pain. Constant and worse on palpation. Review of Systems Review of Systems: Unobtainable due to endotracheal tube Physical Exam Physical Exam: Constitutional: + obese Eyes: PERRL, conjunctivae normal, anicteric sclerae ENMT: external ear and nose normal, oropharynx normal Neck: normal visual inspection Respiratory: no cough Auscultation: + diminished lung sounds (bilateral) and + crackles (bilateral); no rales, no rhonchi and no wheezes Cardiovascular: Heart rate irregularly irregular, no JVD, left lower extremity with 2+ pitting edema, right lower extremity with trace edema Gastrointestinal (Abdomen): Inspection/Auscultation: + abdomen distended and normal bowel sounds Percussion/Palpation: + abdomen tender (To palpation, diffuse but worst in epigastric area) and abdomen soft; no guarding Musculoskeletal: no cyanosis or clubbing, extremities motor strength 5/5 Skin: no rashes, warm and dry Neurologic: PERRL, EOMI, accommodation nl, no face palsy, no dysarthria moves all extremities; no focal motor deficits Psychiatric: A+Ox3, euthymic affect Results & Data Results & Data ([facility]) Vital Signs (Past 12 Hours) Vital Signs Temp Pulse Pulse Resp BP BP BP 04/04/20 07:35 36.6 C 126 H 20 131/72 04/04/20 04:55 36.3 C L 126 H 18 130/80 04/04/20 04:10 36.6 C 120 H 16 106/62 04/04/20 04:00 36.6 C 122 H 16 106/62 04/04/20 03:28 123 H 04/04/20 03:10 36.6 C 117 H 16 114/69 04/04/20 02:10 36.6 C 98 H 18 120/72 04/04/20 02:00 130/66 04/04/20 01:57 36.6 C 98 H 16 120/72 04/04/20 01:40 36.6 C 109 H 20 130/66 04/04/20 01:25 36.6 C 100 H 20 131/71 04/04/20 01:20 36.6 C 116 H 20 125/72 04/04/20 01:15 36.3 C L 109 H 20 123/64 04/04/20 01:04 36.6 C 108 H 21 103/55 L 04/04/20 00:00 130/78 Pulse Ox 04/04/20 07:35 98 04/04/20 04:55 99 04/04/20 04:10 94 04/04/20 04:00 94 04/04/20 03:28 04/04/20 03:10 91 04/04/20 02:10 97 04/04/20 02:00 04/04/20 01:57 97 04/04/20 01:40 99 04/04/20 01:25 99 04/04/20 01:20 99 04/04/20 01:15 99 04/04/20 01:04 98 04/04/20 00:00 PG Care Time/CCT Total # of Minutes Spent Total Time Spent with Patient: Total time spent is greater than 50% in coordination of care (as documented) at patient's floor/unit and/or counseling patient: Prolonged Care Time Prolonged Care Time: Yes Total Prolonged Care Time: 90 9:00: to 9:20 17:10 to 17:20 18:10 to 19:10 Coding Level of Care Code 79992 Subseq Hosp Care Lvl 3 Diagnoses Blood loss anemia D50.0 Acute on chronic diastolic (congestive) heart failure I50.33 Ascites R18.8 Hypokalemia E87.6 Uncontrolled type 2 diabetes mellitus with insulin therapy E11.65; Z79.4 Additional Codes Prolonged Care Time - Prolonged Care Time: Yes ([id number])
[2020-04-04] MEDS: FUROSEMIDE 40 MG in SYRINGE 0 ML IV SCH ×2 (10:29→17:59)
[2020-04-04] MEDS: POTASSIUM CHLORIDE / WTR 10 MEQ/100 ML PLCT IV SCH ×4 (10:29→13:08)
--- NOTE | 2020-04-04 11:19 | Pharmacy Report ---
Glycemic Control Consultation - Date of Service April 04, 2020 - Scope Scope: Glycemic Pharmacist consulted for glycemic control and to write orders per [facility] inpatient glycemic control protocol. - Objective Weight: 83.5 kg Accuchecks BSG (last 24hrs): 04/03/20 04/04/20 04/04/20 20:00 02:02 05:15 Glucose 132 H 139 H POC Glucose 136 H 04/04/20 07:20 Glucose POC Glucose 155 H Laboratory Data (last 24hrs): 04/03/20 04/04/20 20:00 05:15 Potassium 2.9 L 3.1 L Carbon Dioxide 29 26 Anion Gap 9.0 8.0 Creatinine 1.47 H 1.56 H Est Cr Clr Drug Dosing 30.2 29.2 HbA1c: Hemoglobin A1c 6.9 % (4.5-5.6) H 04/04/20 05:15 - Recent Pertinent Medications Outpatient Anti-diabetic Regimen: * Lantus 15 units daily * A1c = 6.9 % 04/04/20 Risk Factors for Insulin Resistance: * Diet: T2DM - Assessment & Plan Assessment & Plan: ASSESSMENT: * Ms Mcgarry is a 74 y/o F with a PMH of T2DM managed on insulin. She has a low HbA1C although this should be interpreted with caution due to chronic anemia. * Will give Lantus 8 units SQ daily (half of home dose plus weight-based stress of 1 dosing). Start weight-based stress of 2 Novolog. * ADA & AACE recommend a goal blood sugar range 140-180 mg/dl for the majority of critically ill & non-critically ill patients. However, more stringent targets may be selected in individual cases. Will utilize more stringent goal of 110-150mg/dl based on patient age & comorbidities. PLAN FOR INPATIENT GLYCEMIC CONTROL: * Basal insulin * Lantus 8 units SQ qAM * Bolus insulin * NovoLog per scale ACHS or Q6hrs while NPO * Goal Range: Low 110 mg/dL - High 150 mg/dL * Correction Factor: 30 mg/dL/unit * Nutritional / Prandial insulin per carb ratio of 1 unit per 10 grams CHO consumed * Please note that the plan above was derived based on current level of insulin resistance and hospital stress. These recommendations are appropriate for inpatient admission only. Plan of care upon discharge will need to be reassessed to avoid potential outpatient hypo/hyperglycemia. Thank you.
[2020-04-04] MEDS ORDERED: METOPROLOL TARTRATE 1 MG/ML VIAL IV STA (16:42)
[2020-04-04] MEDS ORDERED: DIGOXIN 250 MCG in SYRINGE 9 ML IV ONE (17:30)
[2020-04-04 18:45] LABS: Hematocrit (blood only) 33.7 % (37-47); Hemoglobin 9.2 g/dL (12.0-16.0)
[2020-04-04] MEDS ORDERED: STAT IV Infusion **Titration per Protocol STA (19:09)
[2020-04-04] MEDS ORDERED: dilTIAZem HCl 5 MG/ML 5 ML VIAL IV STA (19:09)
[2020-04-04] MEDS ORDERED: dilTIAZem HCL 125 MG in DEXTROSE 5% 100 ML IV SCH (19:15)
[2020-04-04 20:33] LABS: Appearance Urine Clear (Clear); Bacteria Urine Automated Negative (Negative); Bilirubin Urine Negative (Negative); Blood Urine Negative (Negative); Color Urine Yellow; Epithelial Cell Urine Auto >30 /lpf (0-5); Glucose Urine UA Negative (Negative); Ketones Urine Negative (Negative); Leukocyte Esterase Urine 1+ (Negative); Nitrite Urine Negative (Negative); Protein Urine Trace (Negative); Specific Gravity Urine 1.015 (1.000-1.030); Urobilinogen Urine Negative (Negative)
--- NOTE | 2020-04-04 21:14 | Billing Data ---
Date of Service April 04, 2020 Coding Level of Care Code 03201 Initial Inpt Care Lvl 3
[2020-04-05] MEDS: LEVOTHYROXINE SODIUM 88 MCG TABLET PO SCH (05:41)
[2020-04-05] MEDS: INSULIN ASPART 100 UNITS/ML 3 ML PEN SC SCH ×4 (08:42→20:35)
[2020-04-05] MEDS: LOSARTAN POTASSIUM 50 MG TAB PO SCH ×2 (08:44→20:44)
[2020-04-05] MEDS: INSULIN GLARGINE SOLOSTAR 100 UNITS/ML 3 ML PEN SC SCH (08:44)
[2020-04-05] MEDS: METOPROLOL TARTRATE 100 MG TAB PO SCH ×2 (08:44→20:43)
[2020-04-05] MEDS: POTASSIUM CHLORIDE 20 MEQ TABCR PO SCH (08:45)
[2020-04-05] MEDS: FUROSEMIDE 40 MG in SYRINGE 0 ML IV SCH ×2 (08:45→17:47)
--- NOTE | 2020-04-05 09:19 | Palliative Care Consultation ---
Date of Consultation April 05, 2020 Assessment & Plan (1) Goals of care, counseling/discussion: This is a 74 year old female who presented to the [facility] from home with SOB, abdominal pain and weakness that has occurred for the past 4-5 days. Additional PMH includes CHF, DM2, CKD3, CAD, COPD and wears 2LNC supplemental O2 at home. She is already enrolled with [facility]. Initially, on admission her Hgb was 6.7. She received overall 2 UPBC and currently her Hgb is 9.2. Overall, she has increased weakness. The patient has Afib and was on Eloquis. She did go into a rapid A-fib and was placed on a Diltiazem gtt this admission, which has been discontinued as of today. The patient lives with her son, Luca Valle) and her sister comes to provide her with care int he morning each day through the early evening. Her daughter, Celestina is her designated decision maker whom I spoke with today on the phone. -I met with the patient in room 239. Patient was sitting upright in her bed with her eyes closed. She appears weak and frail. -She was able to communicate appropriately with me; however, all of her answers were mumbled. -She was able to tell me that she was in the hospital, that her abdomen was hurting which brought her in. She was also able to state she was not having any discomfort currently. She also could verbalize that she lives with her son, Luca and that her designated decision maker was her daughter, Celestina. -I called to the patients daughter, Celestina, at [phone]. She stated and confirmed that she was under [facility] up until this admission. -Celestina stated that they do not want any aggressive measures or consultation, that the goal is for her to return home under previous hospice services. I did ask if she was satisfied with the hospice agency or wanted to discuss changing and she stated she was happy with [facility]. -She said that the patient lives with her son, Luca Valle) and her sister comes to provide her with care in the morning each day through the early evening. -A POLST form has been completed prior to this admission and is at home. Patient is DNR. They want to avoid any future hospitalizations. -Discussion held with hospitalist, Diltiazem gtt turned off. Working with CM for discharge home today or tomorrow based on transportation needs. -Please let palliative care know if we can be of further assistance. -PPS: 30% (2) CKD (chronic kidney disease): (3) Hematochezia: (4) Blood loss anemia: (5) Chronic diastolic CHF (congestive heart failure): (6) COPD (chronic obstructive pulmonary disease): COPD type: unspecified COPD Qualified Code(s): J44.9 - Chronic obstructive pulmonary disease, unspecified History of Present Illness Reason for Consultation: Goals of Care Requesting Physician: Dr. Saeed Attending Physician: Ariel Saeed History of Present Illness This is a 74 year old female who presented to the [facility] from home with SOB, abdominal pain and weakness that has occurred for the past 4-5 days. Additional PMH includes CHF, DM2, CKD3, CAD, COPD and wears 2LNC supplemental O2 at home. She is already enrolled with [facility]. Initially, on admission her Hgb was 6.7. She received overall 2 UPBC and currently her Hgb is 9.2. Overall, she has increased weakness. The patient has Afib and was on Eloquis. She did go into a rapid A-fib and was placed on a Diltiazem gtt this admission, which has been discontinued as of today. The patient lives with her son, Luca (Berny) and her sister comes to provide her with care int he morning each day through the early evening. Her daughter, Celestina is her designated decision maker whom I spoke with today on the phone. Please see Assessment and Plan for further details. Thank you kindly for involving the Palliative Care team with this patient. We will provide support as necessary. Allergies Allergy/AdvReac Type Severity Reaction Status Date / Time LUCIANA Inhibitors AdvReac Intermediate COUGH Verified 04/03/20 20:47 Vyfrpej-Rxp-Ian Reductase AdvReac Intermediate MYALGIA Verified 04/03/20 20:47 Inhibitor doxycycline AdvReac Unknown Diarrhea Verified 04/03/20 20:47 clopidogrel AdvReac easy Verified 04/03/20 20:47 bruising, itching, chest and abd pain Home Medications Home Medications Medication Instructions Recorded Confirmed Type losartan 50 mg PO BID 03/11/19 04/03/20 History albuterol sulfate 2.5 mg/0.5 mL 2.5 mg INHALATION QID PRN #50 ea 04/05/19 04/03/20 Rx solution for nebulization aspirin [Adult Aspirin Regimen] 81 mg PO QAM 06/16/19 04/03/20 History Lantus U-100 Insulin 15 unit SUBCUT DAILY #0 ml 06/23/19 04/03/20 Rx miconazole nitrate [Desenex] 1 applic EXT BID #60 g 06/23/19 04/03/20 Rx pen needle, diabetic 31 gauge x #100 ea 08/06/19 03/27/20 Rx /16" A Smarter CityTouch Verio test strips #300 ea NS 10/28/19 03/27/20 Rx ezetimibe 10 mg tablet 10 mg PO DAILY #30 tab 11/16/19 04/03/20 Rx cyclobenzaprine 10 mg tablet 10 mg PO TID PRN #30 tab 01/14/20 04/03/20 Rx levothyroxine 88 mcg tablet 88 mcg PO DAILY #30 tab 01/26/20 04/03/20 Rx metoprolol tartrate 100 mg tablet 100 mg PO BID #60 tab 01/26/20 04/03/20 Rx apixaban 5 mg tablet 5 mg PO BID #60 tab 02/15/20 04/03/20 Rx nitroglycerin 0.4 mg sublingual 0.4 mg SL Q5M PRN #25 tab 02/24/20 04/03/20 Rx tablet nebulizer accessories #1 ea 02/28/20 03/27/20 Rx potassium chloride 20 mEq 40 meq PO DAILY #30 tab 03/06/20 04/03/20 Rx tablet,extended release amlodipine 5 mg tablet 5 mg PO DAILY #90 tab 03/16/20 04/03/20 Rx hydrocodone 5 mg-acetaminophen 325 1 tab PO Q8H PRN #40 tab 03/27/20 04/03/20 Rx mg tablet furosemide 40 mg PO DAILY 04/03/20 04/03/20 History hydralazine 50 mg PO TID 04/03/20 04/03/20 History zolpidem 10 mg PO HS 04/03/20 04/03/20 History Patient History Medical History (Updated 04/05/20 @ 09:16 by FLAKO [place]) Carotid artery stenosis > 70% stenosis in VAN 50-69% stenosis in LICA >50% stenosis in both ECAs *SURGEON AWARE CKD (chronic kidney disease) Congestive heart failure Chronic diastolic, EF 65-70% COPD (chronic obstructive pulmonary disease) COPD (chronic obstructive pulmonary disease) (Chronic) CVA (cerebral vascular accident) Old occipital lobe infarct noted on 07/21/18 brain MRI (MRI was prompted by abnormal physical exam by special projects manager). This was not seen on 04/[address] Pt started on Plavix. Degenerative disc disease cervical Diabetes on insulin Diabetes GERD (gastroesophageal reflux disease) GERD (gastroesophageal reflux disease) Goals of care, counseling/discussion Hx of chest pain Hypercalcemia Hyperparathyroidism Hypertension Hypertension Hypothyroid Hypothyroid Polymyalgia rheumatica SOB (shortness of breath) (Acute) exertional Surgical History H/O rotator cuff surgery (Acute) left shoulder History of appendectomy History of cataract surgery History of colonoscopy History of hysterectomy History of tooth extraction Hx of cholecystectomy Family History Mother Family history of diabetes mellitus Brother Family history of diabetes mellitus Social History Preferred Language: Iraqi Communication Ability: Effective Visual Impairment: No Limitations Rolling Attendant Required: No Beliefs That Will Affect Care: None marital status: Current Living Situation: Family Feels Safe at Home: Yes Smoking Status: Never smoker Tobacco Type: cigarettes ; Age Started Using Tobacco: 17 ; Age Quit Using Tobacco: 55 ; packs per day: 0.5 ; Cigarettes Per Day: 5-10 ; Second Hand Exposure: No ; Hx Alcohol Use: No Hx Substance Use: No Dental Care, Regularly: No Seatbelt Use: always Sunscreen Use: No Review of Systems Review of Systems: General: Pt denies pain HEENT: Pt denies CROWLEY, dizziness, visual changes, dysphagia Resp: Pt states breathing is unchanged CV: Pt denies chest pain GI: Pt denies abdominal pain Physical Exam Constitutional: + ill appearing, + frail appearing, cooperative and comfortable ENMT: external ear and nose normal, oropharynx normal Neck: trachea midline, no thyromegaly Respiratory: + uses accessory muscles (diaphragmatic breathing) Auscultation: + diminished lung sounds Cardiovascular: Extremities: normal capillary refill and + edema (trace bilateral LE) Gastrointestinal (Abdomen): Inspection/Auscultation: abdomen normal to inspection, + abdomen distended (non-tender ) and normal bowel sounds Psychiatric: Orientation: alert, oriented x 3 and cooperative Judgement: + limited judgement eyes closed and mumbling, but answering questions Results & Data Vital Signs (Past 12 Hours) Vital Signs Temp Pulse Pulse Resp BP BP Pulse Ox 04/05/20 07:35 36.6 C 72 76 18 134/69 96 04/05/20 04:37 92 H 04/05/20 03:51 36.4 C L 77 20 118/70 94 04/04/20 23:39 36.6 C 108 H 22 127/61 92 PG Care Time/CCT Total # of Minutes Spent Total Time Spent with Patient: Total time spent is greater than 50% in coordination of care (as documented) at patient's floor/unit and/or counseling patient: 70 Coding Level of Care Code 19851 Inpt Consult Level 3 Diagnoses Goals of care, counseling/discussion Z71.89 CKD (chronic kidney disease) N18.9 Hematochezia K92.1 Blood loss anemia D50.0 Chronic diastolic CHF (congestive heart failure) I50.32 COPD (chronic obstructive pulmonary disease) J44.9 COPD type: unspecified COPD Time Spent (min) 70 Time Spent Midlevel Total time spent 70 minutes with > 50% of that time spent assessing the patient, discussing goals of care with the patient and her daughter on the phone.
[2020-04-05] MEDS ORDERED: dilTIAZem HCl 60 MG TAB PO ONE (09:30)
--- NOTE | 2020-04-05 11:12 | Gastrointestinal Consultation ---
Date of Consultation April 05, 2020 Assessment & Plan (1) Blood loss anemia: 74 year old female reportedly on hospice at home, palliative consultaiton pending with history of CHF, COPD w/ chronic respiratory failure on 2 L nasal cannula baseline, A. fib on Eliquis and metoprolol, HTN, CKD-3 T2DM, CVA, admitted for blood loss anemia and acute on chronic CHF Her HGB has remained stable after RBC transfusion x 2 units w/ reported brown, loose stools. She has chronic significant comorbidities and is high risk for elective endoscopic evaluation. Would discuss goals of care given reported home hospice Can send stool culture, c.diff given reported bloody diarrhea Trend HGB Monitor and document stools Transfuse PRN per primary service No current GI plan/indication for endoscopic evaluation Will sign off. Thank you for allowing us to participate in the care of this patient. Please call with any acute changes, questions or concerns. Please see addendum below with additional recommendation from my supervising physician. Supervising Physician Co-Signing Physician Notes Attg add: I interviewed and examined pt, reviewed chart and labs. Pt with anemia without gross GIB. Would not pursue endoscopic intervention at this time, follow hgb daily while inpt. Will sign off, please reconsult as needed. History of Present Illness Reason for Consultation: anemia Requesting Physician: Darlin Attending Physician: Ariel Saeed History of Present Illness 74 year old female reportedly on hospice at home, palliatice consultaiton pending with history of CHF, COPD w/ chronic respiratory failure on 2 L nasal cannula baseline, A. fib on Eliquis and metoprolol, HTN, CKD-3 T2DM, CVA, admitted for blood loss anemia and acute on chronic CHF. GI asked to evaluate for anemia. Pt was seen and evaluated, chart reviewed. She is not able to provide any past medical history as she was sleeping. Reported in history is of abdominal pain and diarrhea for the past 2/3 days. After a few days of loose stools, diarrhea has turned bloody and patient has had associated weakness, fatigue, shortness of breath. No nausea or vomiting. No fevers or chills. No recent illnesses, no sick contacts. In ED lab work showed hemoglobin 6.7 with a microcytic anemia s/p RBC units x 2 with HGB this AM 9.2 BNP elevated at 5490. BUN 36, EXAMINATION SUPERVISOR 1.56 No stool studies obtained yet CTAP w/ abdominal and pelvic ascites. Nonobstructive bowel pattern. Right pleural effusion with a superimposed right basilar infiltrate. Moderate body wall anasarca. Allergies Allergy/AdvReac Type Severity Reaction Status Date / Time LUCIANA Inhibitors AdvReac Intermediate COUGH Verified 04/03/20 20:47 Ggojzor-Vwy-Nvk Reductase AdvReac Intermediate MYALGIA Verified 04/03/20 20:47 Inhibitor doxycycline AdvReac Unknown Diarrhea Verified 04/03/20 20:47 clopidogrel AdvReac easy Verified 04/03/20 20:47 bruising, itching, chest and abd pain Home Medications Home Medications Medication Instructions Recorded Confirmed Type losartan 50 mg PO BID 03/11/19 04/03/20 History albuterol sulfate 2.5 mg/0.5 mL 2.5 mg INHALATION QID PRN #50 ea 04/05/19 04/03/20 Rx solution for nebulization aspirin [Adult Aspirin Regimen] 81 mg PO QAM 06/16/19 04/03/20 History Lantus U-100 Insulin 15 unit SUBCUT DAILY #0 ml 06/23/19 04/03/20 Rx miconazole nitrate [Desenex] 1 applic EXT BID #60 g 06/23/19 04/03/20 Rx pen needle, diabetic 31 gauge x #100 ea 08/06/19 03/27/20 Rx 5/16" OneTouch Verio test strips #300 ea NS 10/28/19 03/27/20 Rx ezetimibe 10 mg tablet 10 mg PO DAILY #30 tab 11/16/19 04/03/20 Rx cyclobenzaprine 10 mg tablet 10 mg PO TID PRN #30 tab 01/14/20 04/03/20 Rx levothyroxine 88 mcg tablet 88 mcg PO DAILY #30 tab 01/26/20 04/03/20 Rx metoprolol tartrate 100 mg tablet 100 mg PO BID #60 tab 01/26/20 04/03/20 Rx apixaban 5 mg tablet 5 mg PO BID #60 tab 02/15/20 04/03/20 Rx nitroglycerin 0.4 mg sublingual 0.4 mg SL Q5M PRN #25 tab 02/24/20 04/03/20 Rx tablet nebulizer accessories #1 ea 02/28/20 03/27/20 Rx potassium chloride 20 mEq 40 meq PO DAILY #30 tab 03/06/20 04/03/20 Rx tablet,extended release amlodipine 5 mg tablet 5 mg PO DAILY #90 tab 03/16/20 04/03/20 Rx hydrocodone 5 mg-acetaminophen 325 1 tab PO Q8H PRN #40 tab 03/27/20 04/03/20 Rx mg tablet furosemide 40 mg PO DAILY 04/03/20 04/03/20 History hydralazine 50 mg PO TID 04/03/20 04/03/20 History zolpidem 10 mg PO HS 04/03/20 04/03/20 History Patient History Medical History (Updated 04/05/20 @ 09:16 by FLAKO [place]) Carotid artery stenosis > 70% stenosis in VAN 50-69% stenosis in LICA >50% stenosis in both ECAs *SURGEON AWARE CKD (chronic kidney disease) Congestive heart failure Chronic diastolic, EF 65-70% COPD (chronic obstructive pulmonary disease) COPD (chronic obstructive pulmonary disease) (Chronic) CVA (cerebral vascular accident) 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 This was not seen on 04/[address] Pt started on Plavix. Degenerative disc disease cervical Diabetes on insulin Diabetes GERD (gastroesophageal reflux disease) GERD (gastroesophageal reflux disease) Goals of care, counseling/discussion Hx of chest pain Hypercalcemia Hyperparathyroidism Hypertension Hypertension Hypothyroid Hypothyroid Polymyalgia rheumatica SOB (shortness of breath) (Acute) exertional Surgical History H/O rotator cuff surgery (Acute) left shoulder History of appendectomy History of cataract surgery History of colonoscopy History of hysterectomy History of tooth extraction Hx of cholecystectomy Family History Mother Family history of diabetes mellitus Brother Family history of diabetes mellitus Social History Preferred Language: Yoruba Communication Ability: Effective Visual Impairment: No Limitations Disc Sander Required: No Beliefs That Will Affect Care: None marital status: Current Living Situation: Family Feels Safe at Home: Yes Smoking Status: Never smoker Tobacco Type: cigarettes ; Age Started Using Tobacco: 17 ; Age Quit Using Tobacco: 55 ; packs per day: 0.5 ; Cigarettes Per Day: 5-10 ; Second Hand Exposure: No ; Hx Alcohol Use: No Hx Substance Use: No Dental Care, Regularly: No Seatbelt Use: always Sunscreen Use: No Review of Systems Review of Systems: Unobtainable due to cognitive status Physical Exam Constitutional: + ill appearing (chronically ill appearing); no acute distress Neck: trachea midline Respiratory: normal respiratory effort Cardiovascular: Rate/Rhythm: regular rate Skin: no rashes, warm and dry Results & Data ([facility]) Vital Signs (Past 12 Hours) Vital Signs Temp Pulse Pulse Resp BP BP Pulse Ox 04/05/20 10:00 115/70 04/05/20 07:35 36.6 C 72 76 18 134/69 96 04/05/20 04:37 92 H 04/05/20 03:51 36.4 C L 77 20 118/70 94 04/04/20 23:39 36.6 C 108 H 22 127/61 92 Laboratory Results 04/05/20 04/04/20 04/04/20 Range/Units 07:10 20:42 19:48 Hgb (12.0-16.0) g/dL Hct (37-47) % POC Glucose 128 H 149 H (70-99) mg/dl Troponin I (0-0.045) ng/ml Urine Color Yellow Urine Appearance Clear (Clear) Urine pH 5.0 (4.5-7.5) Ur Specific [place] 1.015 (1.000-1.030) Urine Protein Trace H (Negative) Urine Glucose (UA) Negative (Negative) Urine Ketones Negative (Negative) Urine Blood Negative (Negative) Urine Nitrite Negative (Negative) Urine Bilirubin Negative (Negative) Urine Urobilinogen Negative (Negative) Ur Leukocyte Esterase 1+ H (Negative) Urine WBC (Auto) 5-10 H (0-5) /hpf Urine RBC (Auto) 5-10 H (0-4) /hpf U Hyaline Cast (Auto) 5-10 H (0-5) /lpf U Epithel Cells (Auto) >30 H (0-5) /lpf Urine Bacteria (Auto) Negative (Negative) Crossmatch 04/04/20 04/04/20 04/04/20 Range/Units 17:48 17:48 17:09 Hgb 9.2 L (12.0-16.0) g/dL Hct 33.7 L (37-47) % POC Glucose 161 H (70-99) mg/dl Troponin I < 0.015 (0-0.045) ng/ml Urine Color Urine Appearance (Clear) Urine pH (4.5-7.5) Ur Specific [place] (1.000-1.030) Urine Protein (Negative) Urine Glucose (UA) (Negative) Urine Ketones (Negative) Urine Blood (Negative) Urine Nitrite (Negative) Urine Bilirubin (Negative) Urine Urobilinogen (Negative) Ur Leukocyte Esterase (Negative) Urine WBC (Auto) (0-5) /hpf Urine RBC (Auto) (0-4) /hpf U Hyaline Cast (Auto) (0-5) /lpf U Epithel Cells (Auto) (0-5) /lpf Urine Bacteria (Auto) (Negative) Crossmatch 04/04/20 04/03/20 Range/Units 11:24 20:41 Hgb (12.0-16.0) g/dL Hct (37-47) % POC Glucose 152 H (70-99) mg/dl Troponin I (0-0.045) ng/ml Urine Color Urine Appearance (Clear) Urine pH (4.5-7.5) Ur Specific [place] (1.000-1.030) Urine Protein (Negative) Urine Glucose (UA) (Negative) Urine Ketones (Negative) Urine Blood (Negative) Urine Nitrite (Negative) Urine Bilirubin (Negative) Urine Urobilinogen (Negative) Ur Leukocyte Esterase (Negative) Urine WBC (Auto) (0-5) /hpf Urine RBC (Auto) (0-4) /hpf U Hyaline Cast (Auto) (0-5) /lpf U Epithel Cells (Auto) (0-5) /lpf Urine Bacteria (Auto) (Negative) Crossmatch See Detail
[2020-04-05 12:15] LABS: Hematocrit (blood only) 33.9 % (37-47); Hemoglobin 9.1 g/dL (12.0-16.0); Mean Corpuscular Hemoglobin 19.7 pg (25-34); Mean Corpuscular Hgb Conc 26.8 g/dL (32-36); Mean Corpuscular Volume 73.5 fL (80-100); Mean Platelet Volume 9.3 fL (7.4-10.4); Platelet Count 268 K/uL (130-400); RDW Coefficient of Variation 21.8 % (11.5-14.5); RDW Standard Deviation 57.5 fL (36.4-46.3); Red Blood Count 4.61 M/uL (4.2-5.4); White Blood Count 10.82 K/uL (4.8-10.8)
[2020-04-05 12:39] LABS: BUN Creatinine Ratio 21.7 (10-20); Calcium 9.9 mg/dl (8.5-10.1); Creatinine Clr Calc Pharmacy 26.1 ml/min; Est GFR (African American) 32.7; Est GFR (Non-African American) 28.2; Potassium 4.2 mmol/L (3.5-5.1)
[2020-04-05] MEDS ORDERED: dilTIAZem HCl 60 MG TAB PO SCH (14:00)
[2020-04-05] MEDS: dilTIAZem HCL 30 MG TAB PO SCH ×2 (14:27→20:45)
--- NOTE | 2020-04-05 15:20 | Electrocardiogram Report ---
Test Reason : Blood Pressure : / mmHG Vent. Rate : 125 BPM Atrial Rate : 153 BPM P-R Int : 000 ms QRS Dur : 068 ms QT Int : 286 ms P-R-T Axes : 000 089 206 degrees QTc Int : 412 ms Atrial fibrillation with rapid ventricular response Abnormal ECG Confirmed by Sidney Aleman ([id number]) on 04/05/2020 3:19:53 PM Referred By: REFERRED SELF Confirmed By:Ronaldo Aleman
[2020-04-05] MEDS: ZOLPIDEM TARTRATE 10 MG TAB PO PRN (22:02)
--- NOTE | 2020-04-05 23:15 | Hospitalist Progress Note ---
Date of Service April 05, 2020 Assessment & Plan (1) Blood loss anemia: 74 yo F PMHx HFpEF on 2 L nasal cannula baseline, A. fib on Eliquis and metoprolol, HTN, DM 2, CKD stage III, CVA, COPD admitted for blood loss anemia and acute on chronic CHF. Symptomatic blood loss anemia: Hemoglobin improved to 9.1 after transfusing 2 units of PRBC. continue IV lasix Also replace potassium HR remains elevated as well. Despite being on hospice, will continue to treat. HR improved with diltiazem. will stop IV drip and place on oral diltiazem. Acute on chronic diastolic HF: - Pt with a history of HFpEF with most recent echo in February 2019 showing EF 55 to 60% with elevated right ventricular pressure. - Will hold patient's hydralazine and amlodipine in the setting of fluid overload. -Diabetic, low-salt diet with fluid restriction 1500 mLs. Hypokalemia: improved.. Paroxysmal AFib: - History of A. fib on Eliquis and metoprolol at home. Patient is without chest pain, palpitations at this time. - Holding Eliquis for GIB. - Continue metoprolol 100mg PO BID. - continuous cardiac monitoring. DM2: - SSI with glycemic consult. HTN with Hx CKD stage III: -Continue home losartan, metoprolol, Lasix. -Hold hydralazine and amlodipine in the setting of fluid overload. CAD: -Hold aspirin in the setting of acute bleed. -Continue metoprolol, losartan. Code Status: DNR/DNI D.W daughter: she would like patient to go back to hospice as soon as able. (2) Acute on chronic diastolic (congestive) heart failure: (3) Ascites: (4) Hypokalemia: (5) Uncontrolled type 2 diabetes mellitus with insulin therapy: Admission and Anticipated Discharge Date Admission Date: April 04, 2020 Subjective Patient is drowsy. Has no new complaints. Review of Systems Review of Systems: All systems reviewed & are unremarkable except as noted in HPI & below Physical Exam Physical Exam: Constitutional: + obese Eyes: PERRL, conjunctivae normal, anicteric sclerae ENMT: external ear and nose normal, oropharynx normal Neck: normal visual inspection Respiratory: no cough Auscultation: + diminished lung sounds (bilateral) and + crackles (bilateral); no rales, no rhonchi and no wheezes Cardiovascular: Heart rate irregularly irregular, no JVD, left lower extremity with 2+ pitting edema, right lower extremity with trace edema Gastrointestinal (Abdomen): Inspection/Auscultation: + abdomen distended and normal bowel sounds Percussion/Palpation: + abdomen tender (To palpation, diffuse but worst in epigastric area) and abdomen soft; no guarding Musculoskeletal: no cyanosis or clubbing, extremities motor strength 5/5 Skin: no rashes, warm and dry Neurologic: PERRL, EOMI, accommodation nl, no face palsy, no dysarthria moves all extremities; no focal motor deficits Psychiatric: Awake and alert, euthymic affect Results & Data Results & Data ([facility]) Vital Signs (Past 12 Hours) Vital Signs Temp Pulse Pulse Resp BP BP Pulse Ox 04/05/20 21:37 36.6 C 77 18 150/79 H 95 04/05/20 18:17 69 04/05/20 15:41 36.5 C 69 18 127/75 96 04/05/20 11:47 36.5 C 80 18 127/55 L 91 PG Care Time/CCT Total # of Minutes Spent Total Time Spent with Patient: Total time spent is greater than 50% in coordination of care (as documented) at patient's floor/unit and/or counseling patient: Coding Level of Care Code 68360 Subseq Hosp Care Lvl 3 Diagnoses Blood loss anemia D50.0 Acute on chronic diastolic (congestive) heart failure I50.33 Ascites R18.8 Hypokalemia E87.6 Uncontrolled type 2 diabetes mellitus with insulin therapy E11.65; Z79.4 Time Spent (min) 35
[2020-04-06] MEDS: LEVOTHYROXINE SODIUM 88 MCG TABLET PO SCH (05:39)
[2020-04-06] MEDS: INSULIN ASPART 100 UNITS/ML 3 ML PEN SC SCH ×2 (08:43→12:18)
[2020-04-06] MEDS: INSULIN GLARGINE SOLOSTAR 100 UNITS/ML 3 ML PEN SC SCH (08:44)
[2020-04-06] MEDS: LOSARTAN POTASSIUM 50 MG TAB PO SCH (08:48)
[2020-04-06] MEDS: POTASSIUM CHLORIDE 20 MEQ TABCR PO SCH (08:48)
[2020-04-06] MEDS: FUROSEMIDE 40 MG in SYRINGE 0 ML IV SCH (08:48)
[2020-04-06] MEDS: dilTIAZem HCL 30 MG TAB PO SCH ×2 (08:48→13:26)
[2020-04-06] MEDS: METOPROLOL TARTRATE 100 MG TAB PO SCH (08:49)
[2020-04-06 10:29] LABS: Hemoglobin 9.3 g/dL (12.0-16.0); Mean Corpuscular Hemoglobin 19.8 pg (25-34); Mean Corpuscular Hgb Conc 27.4 g/dL (32-36); Mean Corpuscular Volume 72.5 fL (80-100); Mean Platelet Volume 9.1 fL (7.4-10.4); Platelet Count 277 K/uL (130-400); RDW Coefficient of Variation 22.7 % (11.5-14.5); RDW Standard Deviation 57.9 fL (36.4-46.3); Red Blood Count 4.69 M/uL (4.2-5.4); White Blood Count 10.22 K/uL (4.8-10.8)
[2020-04-06 10:38] LABS: BUN Creatinine Ratio 23.1 (10-20); Calcium 10.1 mg/dl (8.5-10.1); Creatinine Clr Calc Pharmacy 26.6 ml/min; Est GFR (African American) 33.1; Est GFR (Non-African American) 28.6; Potassium 4.5 mmol/L (3.5-5.1)
--- NOTE | 2020-04-12 11:58 | Discharge Summary ---
Date of Service April 06, 2020 Admission HPI Per Admitting Provider 74 yo F PMHx HFpEF on 2 L nasal cannula baseline, A. fib on Eliquis and metoprolol, HTN, DM 2, CKD stage III, CVA, COPD presents to the ED with several days of abdominal pain and diarrhea, over the last 1 to 2 days diarrhea has turned bloody and patient has had associated weakness, fatigue, shortness of breath. No nausea or vomiting, chest pain, fevers or chills,, hematuria, headaches, dizziness. No recent illnesses, no sick contacts. In ED lab work showed hemoglobin 6.7 with a microcytic anemia, potassium 2.9, creatinine 1.47, pro BN [id number], albumin 2.6. Patient given famotidine, Compazine, KCl 20 mEq, and ordered 1 unit PRBCs. ED physician spoke with patient's daughter who is her medical decision-maker, patient was recently made hospice/palliative care, however patient's daughter desires admission for symptomatic management. Hospital team consulted for admission. Principal Diagnosis acute blood loss anemia Discharge Exam Constitutional: + obese Eyes: PERRL, conjunctivae normal, anicteric sclerae ENMT: external ear and nose normal, oropharynx normal Neck: normal visual inspection Respiratory: no cough Auscultation: no rales, no rhonchi and no wheezes Cardiovascular: Heart rate irregularly irregular, no longer tachycardic, no JVD, left lower extremity with 2+ pitting edema, right lower extremity with trace edema Gastrointestinal (Abdomen): Inspection/Auscultation: + abdomen distended and normal bowel sounds Percussion/Palpation: + abdomen non tender and abdomen soft; no guarding Musculoskeletal: no cyanosis or clubbing, extremities motor strength 5/5 Skin: no rashes, warm and dry Neurologic: PERRL, EOMI, accommodation nl, no face palsy, no dysarthria moves all extremities; no focal motor deficits Psychiatric: Awake and alert, euthymic affect Discharge Data Allergies Allergy/AdvReac Type Severity Reaction Status Date / Time LUCIANA Inhibitors AdvReac Intermediate COUGH Verified 04/03/20 20:47 Ljfxete-Nsd-Ggl Reductase AdvReac Intermediate MYALGIA Verified 04/03/20 20:47 Inhibitor doxycycline AdvReac Unknown Diarrhea Verified 04/03/20 20:47 clopidogrel AdvReac easy Verified 06/15/20 20:47 bruising, itching, chest and abd pain Consultations 04/03/20 23:24 ED Decision to Admit Stat 04/04/20 02:06 Consult Case Management - Discharge Planning Routine Consult Palliative Care Stat 04/05/20 09:07 Consult Gastroenterology Routine Ordered Studies 04/03/20 20:24 CT abd pelvis wo con Urgent Hospital Course (1) Blood loss anemia: 74 yo F PMHx HFpEF on 2 L nasal cannula baseline, A. fib on Eliquis and metoprolol, HTN, DM 2, CKD stage III, CVA, COPD admitted for blood loss anemia and acute on chronic CHF. Symptomatic blood loss anemia: Hemoglobin improved to 9.3 after transfusing 2 units of PRBC. unsure of source, daughter did not want any invasive procedures as patient is hospice. Also replaced potassium HR improved with CCB diltiazem. Acute on chronic diastolic HF: - Pt with a history of HFpEF with most recent echo in February 2019 showing EF 55 to 60% with elevated right ventricular pressure. - added diltiazemand stopped amlodipine for HR control.. -Diabetic, low-salt diet with fluid restriction 1500 mLs. Hypokalemia: improved.. Paroxysmal AFib: - History of A. fib on Eliquis and metoprolol at home. Patient is without chest pain, palpitations at this time. - Holding Eliquis for GIB. - Continue metoprolol 100mg PO BID and added diltiazem. - continuous cardiac monitoring. DM2: - SSI with glycemic consult. HTN with Hx CKD stage III: -Continue home losartan, metoprolol, Lasix. -Hold hydralazine and amlodipine in the setting of fluid overload. CAD: -Hold aspirin in the setting of acute bleed. -Continue metoprolol, losartan. Code Status: DNR/DNI D.W daughter: she would like patient to go back to hospice today. (2) Acute on chronic diastolic (congestive) heart failure: (3) Ascites: (4) Hypokalemia: (5) Uncontrolled type 2 diabetes mellitus with insulin therapy: Total Time Total Time Spent Total Time Spent (In Minutes): 32 Total Time Includes: Examination of the Patient, Discharge Planning and Medication Reconciliation Discharge Plan Discharge Items Patient Disposition: Hospice - Home Reason For Visit: anemia and weakness 2/2 gi bleed, acute on Discharge Diagnosis: Anemia likely secondary to GI bleed. Activity: Resume your previous activity Non-emergency contact: Primary Care Provider Call non-emergency contact if: you have any medication questions Follow-up/Referrals: Shubham Frausto III, MD [Primary Care Provider] - Diet: Carb Consistent or DM2 and Low Sodium (2gm) Fluids: 1500ml (6 cups) Addtl Attending Provider Instructions: You will be discharged back on hospice. Will stop blood thinners as you had an episode of intestinal bleeding. This was not confirmed by scope as this was refused by patient and family as patient is hospice. With her atrial fibrillation, this does place her at risk of getting a stroke. Patient will return to hospice. Pending Studies at Discharge: No Stand-Alone Forms: [facility] Medications and DC Order Prescriptions: New potassium chloride [Klor-Con M20] 20 mEq Tablet,Er Particles/Crystals 20 meq PO DAILY Qty: 0 RF: 0 diltiazem HCl 30 mg Tablet 30 mg PO TID Qty: 90 RF: 0 Continued albuterol sulfate 2.5 mg/0.5 mL solution for nebulization 2.5 mg INHALATION QID PRN (Reason: Shortness Of Breath) Qty: 50 RF: 6 (DME) pen needle, diabetic [Lite Touch Insulin Pen Lyman] 31 gauge x 5/16" needle See Dose Instructions .ROUTE .MEDSUPPLY Qty: 100 RF: 5 (DME) OneTouch Verio test strips Strip See Rx Instructions .ROUTE .MEDSUPPLY Qty: 300 RF: 3 ezetimibe [Zetia] 10 mg tablet 10 mg PO DAILY Qty: 30 RF: 5 metoprolol tartrate [Lopressor] 100 mg tablet 100 mg PO BID Qty: 60 RF: 5 levothyroxine [Synthroid] 88 mcg tablet 88 mcg PO DAILY Qty: 30 RF: 5 (DME) nebulizer accessories Misc See Rx Instructions .ROUTE .MEDSUPPLY Qty: 1 RF: 0 fluticasone furoate-vilanterol [Breo Ellipta] 200-25 mcg/dose blister with device 1 inh inhalation UD RF: 0 cyclobenzaprine 10 mg tablet 10 mg PO TID PRN (Reason: muscle spasm) Qty: 30 RF: 2 hydrocodone-acetaminophen 5-325 mg tablet 1 tab PO Q8H PRN (Reason: pain) Qty: 40 RF: 0 nitroglycerin 0.4 mg tablet, sublingual 0.4 mg SL Q5M PRN (Reason: chest pain) Qty: 25 RF: 5 Desenex 2 % Powder 1 applic EXT BID Qty: 60 RF: 0 Lantus U-100 Insulin 100 unit/mL solution 15 unit SUBCUT DAILY Qty: 0 RF: 0 losartan 50 mg tablet 50 mg PO BID RF: 0 furosemide 40 mg tablet 40 mg PO DAILY RF: 0 hydralazine 50 mg tablet 50 mg PO TID RF: 0 zolpidem 10 mg tablet 10 mg PO HS RF: 0 Discontinued Eliquis 5 mg tablet 5 mg PO BID Qty: 60 RF: 2 amlodipine 5 mg tablet 5 mg PO DAILY Qty: 90 RF: 3 potassium chloride 20 mEq tablet extended release 40 meq PO DAILY Qty: 30 RF: 6 aspirin [Adult Aspirin Regimen] 81 mg tablet,delayed release (DR/EC) 81 mg PO QAM RF: 0 Discharge Orders: Discharge Order (Routine); Ordered 04/06/20 Ordered By: Ariel Tang/Other Patient Handouts: Managing Type 2 Diabetes Admission Data Admit Date/Time: 04/04/20 00:30 Attending Provider: Ariel Saeed Admit Provider: Jose Antonio Castano Primary Care Provider: Shubham Frausto III Other Providers: Yodit Summers ; Christy Alejandre Other Interventions: Discharge Summary Assessment (RN) Last Done: 04/06/20 13:37 DC Date/Time DO NOT enter until pt leaves facility: 04/06/20 15:01 Coding Level of Care Code D/C Day Management >30 mins Diagnoses Blood loss anemia D50.0 Acute on chronic diastolic (congestive) heart failure I50.33 Ascites R18.8 Hypokalemia E87.6 Uncontrolled type 2 diabetes mellitus with insulin therapy E11.65; Z79.4
== END 2020-04-06 15:01 | disposition hospice, home (50) | DRG 813 ==
LOC: ED 19:51 → SUATTDRO 04-04 00:30 → 2N 04-04 00:30 → 2S 04-04 19:13